=== PATIENT | female | born 1930 | race Caucasian/White ===

== ENCOUNTER 2017-11-15 10:19 | Inpatient (IN) | payer OTHER ==
[2017-11-15 11:33] LABS: Absolute Lymphocytes (CBC) 1.4 K/uL (0.7-4.9); Absolute Monocytes 0.7 K/uL (0.1-1.3); Absolute Neutrophil 7.7 K/uL (1.8-8.0); Basophils % 0.4 % (0-1.3); Eosinophils % 0.8 % (0-4.4); Hematocrit 38.3 % (36.0-45.0); MCH 30.7 pg (27.0-35.0); MPV 7.8 fL (7.6-11.3); Monocytes % 6.9 % (3.3-12.3); RBC Red Blood Cell Count 4.21 M/uL (3.86-4.86)
[2017-11-15 11:45] LABS: Potassium 4.2 mEq/L (3.6-5.0)
[2017-11-15 11:51] LABS: Albumin 4.2 g/dL (3.2-5.5); Bilirubin Direct 0.6 mg/dL (0-0.2); Protein, Total 6.7 g/dL (6.0-8.3)
[2017-11-15 11:54] LABS: CKMB Creatine Kinase MB 1.7 ng/ml (0.3-4.0)
--- NOTE | 2017-11-15 11:57 | RAD REPORT ---
EXAM DESCRIPTION: RAD - Chest Single View - 11/15/2017 10:53 am CLINICAL HISTORY: Chest pain. COMPARISON: 11/25/2016, 01/07/2013 FINDINGS: Portable technique limits examination quality. Mild emphysematous changes are present. Calcified nodules inferiorly remain unchanged. The heart is n ormal in size. No displaced fractures.Diffuse osteopenia. IMPRESSION: No acute intrathoracic process suspected.
--- NOTE | 2017-11-15 11:58 | RAD REPORT ---
EXAM DESCRIPTION: US - Abdomen Exam Limited - 11/15/2017 11:44 am CLINICAL HISTORY: Abdominal pain. COMPARISON: None. FINDINGS: The gallbladder demonstrates multiple small shadowing gallstones. No pericholecystic fluid or gallbladder wall thickening. The common bile duct is normal measuring 5-6 mm. The liver demonstrates no findings of intrahepatic biliary dilatation. IMPRESSION: Cholelithiasis.
--- NOTE | 2017-11-15 14:21 | RAD REPORT ---
EXAM DESCRIPTION: CTAbdomen Pelvis W Contrast - 11/15/2017 2:04 pm CLINICAL HISTORY: Abdominal pain. COMPARISON: 11/15/2017 sonography TECHNIQUE: Biphasic CT imaging of the abdomen and pelvis was performed with 100 ml non-ionic IV cont rast. All CT scans are performed using dose optimization technique as appropriate and may include automated exposure control or mA/KV adjustment according to patient size. FINDINGS: Linear atelectasis is present in the lung bases.Multiple gallstones are present of gallbla dder with moderate pericholecystic fluid seen. The liver demonstrates no focal mass or biliary dilatation. Mild pancreatic atrophy seen. The spleen, adrenal glands and kidneys within normal limits. Aortic atherosclerosis is present. No bowel obstruction, free air, free fluid or abscess. Scattered sigmoid diverticulosis is present wi thout diverticulitis. The appendix is normal. No evidence of significant lymphadenopathy. Small amount of air seen in urinary bladder. Nonspecific subcutaneous lesion is seen in the right pel sabina subcutaneous fat measuring 13 mm. IMPRESSION: Cholelithiasis with moderate pericholecystic fluid could indicate acute cholecystitis. C orrelation with clinical Godinez's sign is advised. A small amount of air in the urinary bladder suggests cystitis.
--- NOTE | 2017-11-15 14:57 | EKG ---
Test Date: 2017-11-15 Test Time: 10:35:29 Risk Modeler: MEASUREMENT RESULTS: Intervals: Rate: 60 WY: 210 QRSD: 84 QT: 438 QTc: 438 [place]: P: 82 WY: 210 QRS: 46 T: 86 INTERPRETIVE STATEMENTS: Sinus rhythm with 1st degree AV block Septal infarct, age undetermined Abnormal ECG Compared to ECG 11/25/2016 13:00:47 First degree AV block now present Myocardial infarct finding now present Electronically Signed On 11-15-17 14:56:42 CDT by Heber Ortiz
[2017-11-15] MEDS ORDERED: NA CHLORIDE 0.9% 1,000 ML ONE (15:05)
--- NOTE | 2017-11-15 15:21 | EDPHYS ---
Physician Documentation [facility] Name: Josselyn Pereira Age: 87 yrs Sex: Female : 1930 Arrival Date: 11/15/2017 Time: 10:23 Bed 3 Private MD: ED Physician Anand Joshua HPI: 11/15 15:12 This 87 yrs old Female presents to ER via EMS with complaints of Epigastric pm1 pain. 15:12 The patient presents with abdominal pain in the epigastric area. Onset: The pm1 symptoms/episode began/occurred at 07:00. The symptoms radiate to Associated signs and symptoms: Pertinent negatives: nausea, vomiting, and diarrhea, dysuria, fever, shortness of breath, soft stool, not watery. The symptoms are described as achy. Modifying factors: The symptoms are alleviated by nothing, the symptoms are aggravated by touching the area. Severity of pain: in the emergency department the pain is a 5 / 10. The patient has not experienced similar symptoms in the past. The patient has not recently seen a physician, the patient's primary care provider is Dr. Disla. Historical: - Allergies: 10:29 No Known Allergies; ph - Home Meds: 17:02 carvedilol 25 mg Oral tab 1 tab 2 times per day [Active]; simvastatin 80 mg Oral tab 80 ph mg daily [Active]; Synthroid 50 mcg oral tab once daily [Active]; lisinopril 40 mg Oral tab 0.5 tab twice daily [Active]; glipizide 5 mg Oral tab 0.5 tab once daily [Active]; aspirin 81 mg Oral TbEC 1 tab once daily [Active]; - PMHx: 10:29 Diabetes - NIDDM; Hypertension; Hypothyroidism; CVA; ph - Immunization history:: Adult Immunizations unknown. - Social history:: Smoking status: Patient/guardian denies using tobacco. ROS: 15:12 Constitutional: Negative for fever, chills, and weight loss, Eyes: Negative for injury, pm1 pain, redness, and discharge, ENT: Negative for injury, pain, and discharge, Neck: Negative for injury, pain, and swelling, Cardiovascular: Negative for chest pain, palpitations, and edema, Respiratory: Negative for shortness of breath, cough, wheezing, and pleuritic chest pain. 15:12 Back: Negative for injury and pain, : Negative for injury, bleeding, discharge, and swelling, MS/Extremity: Negative for injury and deformity, Skin: Negative for injury, rash, and discoloration, Neuro: Negative for headache, weakness, numbness, tingling, and seizure. 15:12 Abdomen/GI: Positive for abdominal pain, of the epigastric area and right upper quadrant, Negative for nausea, vomiting, and diarrhea. Exam: 15:12 Constitutional: This is a well developed, well nourished patient who is awake, alert, pm1 and in no acute distress. Head/Face: Normocephalic, atraumatic. Eyes: Pupils equal round and reactive to light, extra-ocular motions intact. Lids and lashes normal. Conjunctiva and sclera are non-icteric and not injected. Cornea within normal limits. Periorbital areas with no swelling, redness, or edema. ENT: Nares patent. No nasal discharge, no septal abnormalities noted. Tympanic membranes are normal and external auditory canals are clear. Oropharynx with no redness, swelling, or masses, exudates, or evidence of obstruction, uvula midline. Mucous membranes moist. Neck: Trachea midline, no thyromegaly or masses palpated, and no cervical lymphadenopathy. Supple, full range of motion without nuchal rigidity, or vertebral point tenderness. No Meningismus. Chest/axilla: Normal chest wall appearance and motion. Nontender with no deformity. No lesions are appreciated. Cardiovascular: Regular rate and rhythm with a normal S1 and S2. No gallops, murmurs, or rubs. Normal PMI, no JVD. No pulse deficits. Respiratory: Lungs have equal breath sounds bilaterally, clear to auscultation and percussion. No rales, rhonchi or wheezes noted. No increased work of breathing, no retractions or nasal flaring. 15:12 Back: No spinal tenderness. No costovertebral tenderness. Full range of motion. Skin: Warm, dry with normal turgor. Normal color with no rashes, no lesions, and no evidence of cellulitis. MS/ Extremity: Pulses equal, no cyanosis. Neurovascular intact. Full, normal range of motion. 15:12 Abdomen/GI: Inspection: abdomen appears normal, Bowel sounds: normal, Palpation: soft, moderate abdominal tenderness, in the right upper quadrant, mass, is not appreciated, rebound tenderness, is not appreciated, voluntary guarding, is elicited in the right upper quadrant. 15:12 Neuro: Orientation: is normal, Motor: is normal, moves all fours, Sensation: is normal, no obvious gross deficits. Vital Signs: 10:27 BP 190 / 52; Pulse 73; Resp 18; Temp 97.4(TE); Pulse Ox 95% on R/A; Weight 56.7 kg; ph Height 5 ft. 8 in. (172.72 cm); Pain 3/10; 11:30 BP 179 / 48; Pulse 67; Resp 18; Pulse Ox 97% on R/A; Pain 0/10; ph 12:45 BP 172 / 49; Pulse 81; Resp 18; Pulse Ox 96% on R/A; Pain 0/10; ph 14:00 BP 174 / 50; Pulse 81; Resp 16; Pulse Ox 97% on R/A; ph 15:17 BP 169 / 52; Pulse 78; Resp 18; Pulse Ox 98% on R/A; Pain 0/10; ph 10:27 Body Mass Index 19.01 (56.70 kg, 172.72 cm) ph MDM: 10:27 Patient medically screened. pm1 15:06 Data reviewed: vital signs. Data interpreted: Pulse oximetry: on room air is 96 %. pm1 Interpretation: normal. 15:10 Counseling: I had a detailed discussion with the patient and/or guardian regarding: the pm1 historical points, exam findings, and any diagnostic results supporting the discharge/admit diagnosis, lab results, radiology results. 15:26 Physician consultation: Jean Melgoza MD was called at 15:25, was contacted at 15:25, pm1 regarding consult, patient's condition, and will see patient Draw amylase level. 16:48 ED course: Consulted with Dr. Caldera regarding possible cholecystitis, Dr. Melgoza has rn been notified regarding need for ERCP given lipase of 1999, abx given, admitted to Dr. Gardiner.. 11/15 10:33 Order name: Basic Metabolic Panel; Complete Time: 13:18 pm1 11/15 10:33 Order name: BNP; Complete Time: 12:10 pm1 11/15 10:33 Order name: CBC with Diff; Complete Time: 11:46 pm1 11/15 10:33 Order name: Ckmb; Complete Time: 13:18 pm1 11/15 10:33 Order name: CPK; Complete Time: 13:18 pm1 11/15 10:33 Order name: LFT's; Complete Time: 13:18 pm11/15 10:33 Order name: Magnesium; Complete Time: 13:18 pm11/15 10:33 Order name: PT-INR; Complete Time: 12:10 pm1 11/15 10:33 Order name: Ptt, Activated; Complete Time: 12:10 pm1 11/15 10:33 Order name: Troponin (emerg Dept Use Only); Complete Time: 12:10 pm11/15 10:33 Order name: Lipase; Complete Time: 13:18 pm1 11/15 15:27 Order name: Amylase, Serum pm1 11/15 15:46 Order name: Lipase EDMS 11/15 15:46 Order name: Amylase Level EDMS 11/15 10:33 Order name: XRAY Chest (1 view); Complete Time: 12:10 pm11/15 10:44 Order name: US Abdomen Limited; Complete Time: 12:10 pm11/15 15:46 Order name: Amylase Level EDMS 11/15 15:46 Order name: Amylase Level EDMS 11/15 15:46 Order name: CBC with Automated Diff EDMS 11/15 15:46 Order name: CBC with Automated Diff EDMS 11/15 15:46 Order name: CBC with Automated Diff EDMS 11/15 15:46 Order name: CBC with Automated Diff EDMS 11/15 15:46 Order name: Comprehensive Metabolic Panel EDMS 11/15 15:46 Order name: Comprehensive Metabolic Panel EDMS 11/15 15:46 Order name: Comprehensive Metabolic Panel EDMS 11/15 15:46 Order name: Lipase EDMS 11/15 15:46 Order name: Lipase EDMS 11/15 16:39 Order name: Urine Microscopic Only ss 11/15 16:43 Order name: Urine Dipstick--Ancillary (enter results) bd 11/15 17:04 Order name: Urine Dipstick-Ancillary EDMS 11/15 10:33 Order name: EKG; Complete Time: 10:33 pm1 11/15 10:33 Order name: Cardiac monitoring; Complete Time: 11:34 pm1 11/15 10:33 Order name: EKG - Nurse/Tech; Complete Time: 11:34 pm1 11/15 10:33 Order name: IV Saline Lock; Complete Time: 11:34 pm1 11/15 10:33 Order name: Labs collected and sent; Complete Time: 11:35 pm1 11/15 10:33 Order name: O2 Per Protocol; Complete Time: 11:35 pm1 11/15 10:33 Order name: O2 Sat Monitoring; Complete Time: 11:35 pm1 11/15 13:21 Order name: CT Abd/Pelvis - W/Contrast; Complete Time: 14:23 pm1 11/15 13:49 Order name: NPO; Complete Time: 14:13 pm1 11/15 15:46 Order name: CONS Physician Consult EDCO 11/15 15:46 Order name: NPO EDCO 11/15 15:46 Order name: Physical Therapy Consult EDCO Administered Medications: 15:07 Drug: NS 0.9% 1000 ml Route: IV; Rate: 100 ml/hr; Site: left antecubital; ph 16:45 Drug: Rocephin 1 grams Route: IV; Rate: calculated rate; Site: left antecubital; ph 16:58 Drug: Flagyl 500 mg Volume: 100 ml; Route: IVPB; Rate: 200 ml/hr; Infused Over: 30 ph mins; Site: left antecubital; Disposition: 11/15/17 15:20 Hospitalization ordered by Matthew Gardiner for Inpatient Admission. Preliminary diagnosis are Cholelithiasis, Acute pancreatitis. - Bed requested for Telemetry/MedSurg (Inpatient). - Status is Inpatient Admission. ph - Condition is Stable. - Problem is new. - Symptoms have improved. UTI on Admission? No Signatures: Dispatcher [employer] [facility] Candy Gomez RN RN dw Nieto, Roman, MD MD rn Hall, Patricia, RN RN ph Marinas, Patrick, RUTHIE OPTIMIZATION ENGINEER pm1
--- NOTE | 2017-11-15 15:21 | ER ---
Nurse's Notes [facility] Name: Josselyn Pereira Age: 87 yrs Sex: Female : 1930 Arrival Date: 11/15/2017 Time: 10:23 Bed 3 Private MD: Diagnosis: Cholelithiasis;Acute pancreatitis Presentation: 11/15 10:23 Presenting complaint: EMS states: C/o sudden onset chest pain that radiates to back, ph began at 0700, also reports N/V/D soon after pain began, 324 aspirin administered, 12 lead shows NSR. Transition of care: patient was not received from another setting of care. Onset of symptoms was November 15, 2017. Care prior to arrival: Medication(s) given: ASA, 325 mg. 10:23 Method Of Arrival: EMS: [facility] ph 10:23 Acuity: SHAGGY 3 ph Historical: - Allergies: : No Known Allergies; ph - Home Meds: 17:02 carvedilol 25 mg Oral tab 1 tab 2 times per day [Active]; simvastatin 80 mg Oral tab 80 ph mg daily [Active]; Synthroid 50 mcg oral tab once daily [Active]; lisinopril 40 mg Oral tab 0.5 tab twice daily [Active]; glipizide 5 mg Oral tab 0.5 tab once daily [Active]; aspirin 81 mg Oral TbEC 1 tab once daily [Active]; - PMHx: 10:29 Diabetes - NIDDM; Hypertension; Hypothyroidism; CVA; ph - Immunization history:: Adult Immunizations unknown. - Social history:: Smoking status: Patient/guardian denies using tobacco. Screenin:29 Abuse screen: Denies threats or abuse. Denies injuries from another. Nutritional ph screening: No deficits noted. Tuberculosis screening: No symptoms or risk factors identified. Fall Risk No fall in past 12 months (0 pts). Secondary diagnosis (15 points) CVA, IV access (20 points). Ambulatory Aid- None/Bed Rest/Nurse Assist (0 pts). Gait- Weak (10 pts.). Mental Status- Oriented to own ability (0 pts). Total Ureña Fall Scale indicates High Risk Score (45 or more points). Fall prevention measures have been instituted. Side Rails Up X 2 Placed Close to Nursing Station Frequent Obs/Assessments Occuring As available patient and family educated on Fall Prevention Program and Strategies. Assessment: 10:30 General: Appears in no apparent distress. uncomfortable, slender, well groomed, ph Behavior is calm, cooperative, drowsy, quiet, Denies fever. Pain: Complains of pain in chest Pain radiates to back Pain currently is 3 out of 10 on a pain scale. Quality of pain is described as sharp, Pain began suddenly. Neuro: Level of Consciousness is awake, obeys commands, lethargic, Oriented to person, place, time, situation. Cardiovascular: Reports chest pain, nausea, vomiting, Denies lightheadedness, palpitations, shortness of breath, Capillary refill < 3 seconds Patient's skin is warm and dry. Rhythm is regular. Respiratory: Airway is patent Respiratory effort is even, unlabored, Respiratory pattern is regular, symmetrical. GI: Reports diarrhea, nausea, vomiting. Derm: Skin is intact, is fragile, Skin is pink, warm \T\ dry. Musculoskeletal: Circulation, motion, and sensation intact. Range of motion: intact in all extremities. 11:30 Reassessment: Patient appears in no apparent distress at this time. Patient and/or ph family updated on plan of care and expected duration. Pain level reassessed. Patient is alert, oriented x 3, equal unlabored respirations, skin warm/dry/pink. Pt reports that pain and nausea have improved, tech at bedside for US Patient denies pain at this time. Patient states symptoms have improved. 13:14 Reassessment: Patient appears in no apparent distress at this time. Patient and/or ph family updated on plan of care and expected duration. Pain level reassessed. Patient is alert, oriented x 3, equal unlabored respirations, skin warm/dry/pink. Pt resting quietly w/ eyes closed and respirations even and unlabored, awakens easily, denies pain or nausea at this time, daughter at bedside, VSS, will continue to monitor. 14:00 Reassessment: Patient appears in no apparent distress at this time. No changes from previously documented assessment. Patient and/or family updated on plan of care and expected duration. Pain level reassessed. Patient is alert, oriented x 3, equal unlabored respirations, skin warm/dry/pink. 15:05 Reassessment: Patient appears in no apparent distress at this time. Patient and/or ph family updated on plan of care and expected duration. Pain level reassessed. Patient is alert, oriented x 3, equal unlabored respirations, skin warm/dry/pink. ERP at bedside to speak w/ pt and family about being admitted to the hospital, pt denies pain or nausea at this time, VSS, awaiting room assignment Patient denies pain at this time. 16:00 Reassessment: Patient appears in no apparent distress at this time. Patient and/or ph family updated on plan of care and expected duration. Pain level reassessed. Patient is alert, oriented x 3, equal unlabored respirations, skin warm/dry/pink. Patient denies pain at this time. 17:00 Reassessment: Patient appears in no apparent distress at this time. Patient and/or ph family updated on plan of care and expected duration. Pain level reassessed. Patient is alert, oriented x 3, equal unlabored respirations, skin warm/dry/pink. Pt resting quietly, denies pain or nausea at this time. Vital Signs: 10:27 BP 190 / 52; Pulse 73; Resp 18; Temp 97.4(TE); Pulse Ox 95% on R/A; Weight 56.7 kg; ph Height 5 ft. 8 in. (172.72 cm); Pain 3/10; 11:30 BP 179 / 48; Pulse 67; Resp 18; Pulse Ox 97% on R/A; Pain 0/10; ph 12:45 BP 172 / 49; Pulse 81; Resp 18; Pulse Ox 96% on R/A; Pain 0/10; ph 14:00 BP 174 / 50; Pulse 81; Resp 16; Pulse Ox 97% on R/A; ph 15:17 BP 169 / 52; Pulse 78; Resp 18; Pulse Ox 98% on R/A; Pain 0/10; ph 16:40 BP 167 / 58; Pulse 72; Resp 18; Temp 97.9; Pulse Ox 99% on R/A; ph 10:27 Body Mass Index 19.01 (56.70 kg, 172.72 cm) ph ED Course: 10:23 Patient arrived in ED. ph 10:27 Triage completed. ph 10:27 Abena Mayes NP is PHCP. pm1 10:27 Anand Joshua MD is Attending Physician. pm1 10:29 Arm band placed on. ph 10:30 Patient has correct armband on for positive identification. Placed in gown. Bed in low ph position. Call light in reach. Side rails up X 1. cardiac monitor technician on. Pulse ox on. NIBP on. Warm blanket given. 10:33 Patient maintains SpO2 saturation greater than 95% on room air. ph 10:52 XRAY Chest (1 view) In Process Unspecified. EDMS 11:10 Inserted saline lock: 22 gauge in left antecubital area, using aseptic technique. Blood ph collected. 11:28 Kami Thomas RN is Primary Nurse. ph 11:32 No provider procedures requiring assistance completed. ph 11:39 Ultrasound completed. Patient tolerated poorly. Note: pt very nauseous/ vomiting during sg3 . abena notified . 11:44 US Abdomen Limited In Process Unspecified. EDMS 14:04 CT Abd/Pelvis - W/Contrast In Process Unspecified. EDMS 15:18 Matthew Gardiner MD is Hospitalizing Provider. pm1 17:34 Patient admitted, IV remains in place. ph Administered Medications: 15:07 Drug: NS 0.9% 1000 ml Route: IV; Rate: 100 ml/hr; Site: left antecubital; ph 17:30 Follow up: Response: No adverse reaction; IV Status: Infusion continued upon admission ph 16:45 Drug: Rocephin 1 grams Route: IV; Rate: calculated rate; Site: left antecubital; ph 16:58 Drug: Flagyl 500 mg Volume: 100 ml; Route: IVPB; Rate: 200 ml/hr; Infused Over: 30 ph mins; Site: left antecubital; 18:34 Not Given (Patient Refused): Zofran 4 mg IVP once; over 2 minutes ph 18:35 Not Given (Patient Refused): morphine 4 mg IVP once ph Outcome: 15:20 Decision to Hospitalize by Provider. pm1 17:34 Patient left the ED. ph 17:34 Admitted to Tele accompanied by tech, family with patient, via wheelchair, room 408, ph with chart. 17:34 Condition: stable 17:34 Instructed on the need for admit. Signatures: Dispatcher [employer] EDMS Kami Thomas RN RN ph Abena Mayes, PIT SHOVELER PIT SHOVELER pm1 Sue Ty sg3 Corrections: (The following items were deleted from the chart) 11:42 11:39 Ultrasound completed. Patient tolerated poorly. sg3 sg3
[2017-11-15] MEDS ORDERED: ONDANSETRON 4 MG/2 ML VIAL IV PRN (15:40)
[2017-11-15] MEDS ORDERED: SODIUM CHLORIDE 0.9% 10ML INJ IV PRN (15:40)
[2017-11-15] MEDS ORDERED: ACETAMINOPHEN 650MG/RECT SUPP PR PRN (15:40)
[2017-11-15] MEDS ORDERED: MORPHINE 4 MG/ML SYR IV PRN (15:40)
[2017-11-15] MEDS ORDERED: GLUCAGON 1 MG/VIAL IM PRN (15:49)
[2017-11-15] MEDS ORDERED: D50W 25 GM/50 ML SYRINGE IV PRN (15:49)
[2017-11-15] MEDS ORDERED: INSULIN -REGULAR HUMAN 50 UNIT/0.5 ML ML SQ SCH (16:30)
[2017-11-15] MEDS ORDERED: METRONIDAZOLE 500mg IVPB 500 MG/100 ML BAG IV ONE (17:02)
[2017-11-15] MEDS ORDERED: CEFTRIAXONE/SWI 1gm 1 GM/10 ML SYR ONE (17:02)
[2017-11-15 17:03] LABS: Urine Blood NEGATIVE (NEG); Urine Glucose NEGATIVE (NEG); Urine Protein NEGATIVE (NEG); Urine Specific Gravity 1.015 (1.005-1.030)
[2017-11-15 18:06] LABS: Urine Bacteria >50 /HPF (<20); Urine Culture Reflex Order REFLEXED; Urine Mucus NS /HPF (NONE SEEN); Urine RBC <5 /HPF (NONE SEEN)
[2017-11-15] MEDS: D5 0.45 NS 1,000 ML IV SCH (18:31)
[2017-11-15] MEDS ORDERED: HYDRALAZINE HCL 20 MG/ML VIAL IV PRN (19:45)
[2017-11-15] MEDS: CIPROFLOXACIN 400mg IV 400 MG/200 ML BAG IV SCH (20:44)
[2017-11-16] MEDS: D5 0.45 NS 1,000 ML IV SCH ×5 (00:37→22:00)
[2017-11-16] MEDS: METRONIDAZOLE 500mg IVPB 500 MG/100 ML BAG IV SCH ×3 (01:05→17:03)
--- NOTE | 2017-11-16 02:42 | HP ---
Date of Admission: 11/15/2017 Code Status: DNR. Consultants: Dr. Melgoza and Dr. Caldera with GI and General Surgery respectively. Chief Complaint: Abdominal pain. History Of Present Illness: The patient is an 87-year-old female with past medical history of diabetes, hypertension, hypothyroidism, history of CVA with left-sided weakness, hyperlipidemia, who was in her usual state of health until day of admission when the patient had sudden onset of nausea, vomiting, abdominal pain, which was in the right upper quadrant. Denies any fever or chills. No constipation or diarrhea. The patient's symptoms are constant, moderate, progressively worsening. Denies any alleviating or aggravating factors. No association with food. Apparently, the patient came into the ER for further evaluation of her pain. Upon arrival, her vital signs showed elevated blood pressure. Her workup revealed elevated lipase level. WBC count was normal. The patient's imaging finding showed cholelithiasis and cholecystitis. The patient was therefore referred for admission. The patient was given normal saline fluid bolus x1. When seen in the ER, the patient was awake, alert, oriented x3, in some mild distress. Past Medical History: Diabetes, hypertension, hypothyroidism, history of CVA, hyperlipidemia. 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 She has impinging on the nerve. Allergies: NO KNOWN DRUG ALLERGIES. Medications: Reviewed. Social History: The patient denies any tobacco use, alcohol use, or illicit drug use. The patient lives with her daughter, is . Uses a walker for ambulation. Family History: Father of an IA. Mom had congestive heart failure. Sister also had congestive heart failure, cancer runs in the family. Review of Systems: An 11-point system reviewed, negative except as per HPI. Physical Examination: Vital Signs: Temperature 97.4, heart rate 73, blood pressure 190/52, respirations 18, O2 saturation 95% on room air. General: Awake, alert, oriented x3, in some mild distress. Elderly female, ill -appearing. HEENT: Normocephalic, atraumatic. PERRLA. EOMI. Dry mucous membranes. Oropharynx is clear. Poor dentition. Conjunctiva is anicteric. Neck: Supple. No JVD. Trachea midline. CV: S1 and S2. No murmurs. Regular rate and rhythm. Peripheral pulses are present bilaterally. RESPIRATORY: Clear to auscultation bilaterally. No wheezing. No stridor. No use of accessory muscles. Gastrointestinal: Abdomen is soft. Mild tenderness to palpation in the right upper quadrant. No rebound or guarding. No palpable masses. No hepatomegaly. Extremities: No clubbing, cyanosis, or edema. No calf tenderness. Neuro: Cranial nerves 2 through 12 intact grossly. Left sided weakness. Speech is normal. Skin: Normal skin turgor. No rashes. Psych: Mood is okay. Affect is flat. Insight and judgment are good. Laboratory Data: Sodium 137, potassium 4.2, chloride 104, CO2 27, BUN 31, creatinine 1.3, glucose 199, calcium 10, magnesium 2, total bilirubin 2, direct bilirubin 0.6, AST 43, ALT 24, alkaline phosphatase 48. CK 43, troponin less than 0.03. BNP 145, lipase 2080, amylase pending. INR 1. WBC 9.9, H and H 12.9 and 38.3, platelets 132, neutrophils 77%. Imaging: CT scan of the abdomen shows cholelithiasis with moderate pericholecystic fluid could indicate acute cholecystitis. Small amount of air in the urinary bladder suggests cystitis. Ultrasound of the abdomen shows cholelithiasis. No intrahepatic biliary dilatation. Chest x-ray shows no acute intrathoracic process, suspected personally reviewed. EKG shows sinus rhythm, first-degree AV block, rate of 60. Assessment: An 87-year-old female with: 1. Acute cholecystitis. We will start on IV antibiotics and IV fluids. Keep n.p.o. GI and Surgery has been consulted secondary to cholelithiasis. 2. Acute kidney injury. Creatinine is elevated 1.3. We will start on IV fluids and monitor creatinine. 3. Elevated lipase level. No signs of pancreatitis on CT scan. We will check amylase level correlate. Keep n.p.o. for now. We will check triglyceride levels. No ductal dilatation or stones on imaging studies. 4. Essential hypertension, stable. We will resume home medications as appropriate. 5. Diabetes mellitus type 2 with hyperglycemia. We will start on sliding scale insulin. 6. Hypothyroidism. 7. Hyperlipidemia. 8. History of cerebrovascular accident with left-sided weakness. GI, DVT prophylaxis with PPI and SCDs. No chemical anticoagulation and anticipation of possible procedure. No MPOA or living will Plan: Admit the patient to Med-Surg, place as inpatient. EUSEBIO Voice ID: [id number] MTDD
[2017-11-16] MEDS: INSULIN -REGULAR HUMAN 50 UNIT/0.5 ML ML SQ SCH ×5 (05:32→20:07)
[2017-11-16 06:28] LABS: Absolute Lymphocytes (CBC) 1.9 K/uL (0.7-4.9); Absolute Monocytes 0.7 K/uL (0.1-1.3); Basophils % 0.4 % (0-1.3); Eosinophils % 0.5 % (0-4.4); Hematocrit 35.5 % (36.0-45.0); Lymphocytes % 25.1 % (15.3-44.8); MCH 30.8 pg (27.0-35.0); MCV 89.9 fL (80-100); MPV 8.2 fL (7.6-11.3); Monocytes % 9.2 % (3.3-12.3); RBC Red Blood Cell Count 3.95 M/uL (3.86-4.86)
[2017-11-16 07:02] LABS: Albumin 3.3 g/dL (3.2-5.5); Bilirubin Total 1.2 mg/dL (0.3-1.2); Potassium 3.7 mEq/L (3.6-5.0); Protein, Total 5.2 g/dL (6.0-8.3)
[2017-11-16] MEDS: CIPROFLOXACIN 400mg IV 400 MG/200 ML BAG IV SCH ×2 (08:26→20:53)
[2017-11-16] MEDS: PANTOPRAZOLE 40 MG INJ IVP SCH (08:26)
[2017-11-16] MEDS: CARVEDILOL 25 MG TAB PO SCH ×2 (11:00→20:53)
[2017-11-16] MEDS: LISINOPRIL 20 MG TAB PO SCH (12:10)
[2017-11-16] MEDS: ASPIRIN EC 81 MG TAB PO SCH (12:11)
[2017-11-16] MEDS: hydroCHLOROthiazide 12.5 MG CAP PO SCH (12:11)
[2017-11-16] MEDS: ENOXAPARIN 30 MG/0.3 ML SQ SCH (12:12)
--- NOTE | 2017-11-16 14:33 | CON ---
Date of Consultation: 11/15/2017 Reason: Cholelithiasis and pancreatitis. History Of Present Illness: The patient is an 87-year-old female with multiple medical problems, who presented with acute onset of epigastric pain going into the back pain. No sore throat, runny nose, cough, headaches, or dizziness. No fever or chills and the patient is very stoic. She denies any s ignificant nausea or vomiting. No postprandial pain and states that she not had any symptoms like th is in the past. No blood in her stool. No dysuria or hematuria. Review of Systems: Otherwise unremarkable. Past Medical History: Diabetes, hypertension, hypothyroidism, history of stroke and hyperlipidemia. Past Surgical History: Exploratory laparotomy and small-bowel resection due to benign tumors, left o ophorectomy, back surgery. Allergies: NO ALLERGIES. Social History: She does not smoke or drink. Family History: Noncontributory. Physical Examination: Vital Signs: Stable. She is afebrile. General: She is awake, alert, and oriented x3. Head and Neck: Cranial nerves 2 through 12 are grossly within normal limits. No neck masses. No JV D. Throat clear. Neck is supple. Chest: Clear. Heart: S1, S2. Abdomen: Soft, nondistended. Minimal epigastric tenderness. No rebound, rigidity, or guarding. Extremities: Adequately perfused. Nontender. Neuro: Nonfocal. Laboratory Data: White count is normal. There is no left shift today. INR is normal. Electrolytes reviewed, AST is slightly elevated at 53, amylase was 657 yesterday and is 168 today. Lipase was 16 20 yesterday, 136 today. Triglycerides are normal at 39. Abdominal and pelvis CT showed cholelithia sis with pericholecystic fluid correlation with clinical Godinez's sign is advised. Small amount of a ir in the urinary bladder suggests cystitis. Ultrasound reviewed, gallbladder demonstrates multiple small shadowing gallstones, no pericholecystic fluid or gallbladder wall thickening. Common bile buzz t is normal at 5 to 6 mm. Impression: Cholelithiasis. Assessment: Cholelithiasis, pancreatitis, and possible cystitis. Recommendation at this time, the p atient is clinically very stable. The etiology of the pancreatitis could be a small stone that passe d through, however, clinically she looks very good at this time. There is no evidence of any acute c holecystitis on the ultrasound, which is more sensitive in the CAT scan. Her laboratory data that pina s been improved markedly within just 24 hours. Recommendation: Would be to treat her cystitis and pancreatitis medically. She is on antibiotics an d we will start her on clear liquids. If she tolerates that, I recommend, that we discharge her, she can follow up with me as an outpatient. Should she need surgical intervention. I would like to champ t at least a couple of weeks on treating her pancreatitis prior to any consideration for any interven tion and it does not appear the patient needs ERCP at this time. However we will follow her lab work and clinical exam and make further recommendations as needed. BRIANDA/FIONA Voice ID: [id number] Report ID: [id number]
--- NOTE | 2017-11-16 15:12 | PN ---
Date of Progress Note: 11/16/2017 Subjective: The patient is seen and examined. Chart reviewed and case discussed with RN and Dr. Karthikeyan pina. The patient states her pain is better, having some nausea, but no vomiting. Review of Systems: Negative except as above. Medications: Reviewed. Physical Examination: Vital Signs: Temperature 98.4, heart rate 85, blood pressure 139/59, respirations 16, O2 95% on room air. General: Awake, alert, oriented x3, in some mild distress, somewhat ill-appearing female, elderly. CV: S1, S2. No murmurs. Peripheral pulses present. Regular rate and rhythm. Respiratory: Clear to auscultation bilaterally. No wheezing. Gastrointestinal: Soft abdomen, mild tenderness to palpation in the epigastric region. No rebound o r guarding. No palpable masses. Extremities: No clubbing, cyanosis, or edema. Neurologic: Nonfocal. Laboratory Data: Sodium 137, potassium 3.7, chloride 106, CO2 25, BUN 26, creatinine 1.25, glucose 1 82, calcium 9.1, total bilirubin 1.2, AST 53, ALT 35, alkaline phosphatase 43, albumin 3.3, triglycer ides 39, amylase 168, and lipase 136. WBC 7.7, H and H 12.2 and 35.5, platelets 136. Urine culture is pending. Assessment And Plan: An 87-year-old female with: 1.Acute cholecystitis. Continue IV antibiotics and IV fluids. We will start on clear liquid diets. Appreciate Dr. Caldera's input. He does not feel the patient has any surgical indication at this poi nt. Recommends outpatient followup for elective cholecystectomy. 2.Pancreatitis. Amylase and lipase have improved, likely secondary to ductal stone that most likely has already passed. Amylase and lipase level have trended down significantly. Pain is improved. W e will start on clear liquids. Imaging studies did not show any ductal dilatation. GI on the case. 3.Acute kidney injury. Creatinine has improved, and we will continue with IV fluids, monitor. 4.Essential hypertension. Resume home medications. 5.Diabetes mellitus, type 2 with hyperglycemia. Continue sliding scale. 6.Hypothyroidism, Synthroid. 7.Hyperlipidemia, for now due to elevated LFTs. 8.History of cerebrovascular accident with left-sided weakness. 9.Gastrointestinal and deep venous thrombosis prophylaxis with PPI, and we will start Lovenox as the re is no surgical intervention planned. /FIONA Voice ID: [id number] Report ID: [id number]
--- NOTE | 2017-11-16 19:41 | CON ---
Date of Consultation: 11/16/2017 Reason For Consultation: Abdominal pain with nausea, vomiting, fevers, chills, abnormal CT scan reve aling probable cholecystitis, cholelithiasis, and possible gallstone pancreatitis. History Of Present Illness: This patient is an 87-year-old white female with history of diabetes, hy pertension, stroke in 2010, hypothyroidism, hyperlipidemia. Patient admitted to the hospital due to acute onset of midepigastric pain radiating to the mid back, 5/10 maximum, now down to 0. She had na usea, vomiting, fevers, chills, and sweats associated with this pain. The patient came to the hospit al and CT scan revealed cholelithiasis and pericholecystic fluid consistent with cholecystitis and po ssible urinary bladder cystitis. Ultrasound reveals multiple small gallstones in the gallbladder and normal common bile duct. The patient also noted to have elevated lipase on admission in the ER of a pproximately 2079 consistent with pancreatitis as well. In light of the cholelithiasis, it is probab ly gallstone pancreatitis. The patient denies any melena, hematochezia, hematemesis, coffee-grounds emesis, dysuria, polyuria, polydipsia, chest pain, shortness of breath, seizure, syncope, lower extre mity edema, paresthesias, muscle aches, joint aches, depression, anxiety, but she does have nausea, v omiting, fevers, chills, sweats and midepigastric pain radiating to her back. Physical Examination: Vital Signs: She is 5 feet 8 inches, 125 pounds, BMI of 19 kg/m2. Temperature 98.3 degrees Fahrenhe it, pulse 89, respirations 18, blood pressure 126/54, O2 saturation 96%. General: She is an elderly female, lying in bed, in no acute distress. HEENT: Normocephalic, atraumatic. Anicteric. Pupils equal, round, and reactive to light. Extraocu lar movements are intact. Oropharynx is clear. Neck: Supple. No masses. Respirations: Clear to auscultation bilaterally. Cardiac: Regular rate and rhythm. No gallops or rubs. Gastrointestinal: Positive bowel sounds. Soft, nondistended. Pain in the right upper quadrant. Po sitive Godinez sign. No hepatosplenomegaly. No peritoneal signs, but there was a positive Godinez sig n. Extremities: No clubbing, cyanosis, or edema. 2+ pulses. Neurologic: Alert and oriented x3. Grossly nonfocal. 5/5 motor strength. Sensation to light touch . Able to move all extremities well. Laboratory Data: The patient has a white count of 7.7 down from 9.9 yesterday, hemoglobin 12.2, adrienne tocrit 36, MCV of 89, platelet count 136, polys of 65% down from 78%, lymphocytes 25%, monocytes 9%. PT of 11.8, INR of 1.0, PTT 26.3. Sodium 133, potassium 4.2, chloride 104, bicarb 27, BUN 31, creat inine 1.3, glucose 99, calcium 10, magnesium 2.0, total bilirubin of 2.0, direct bilirubin 0.6, AST 4 3, ALT of 24, alkaline phosphatase 48, CK-MB of 1.7, troponin I of less than 0.03. B-type natriureti c peptide 145. Total protein 6.7, albumin 4.2. Lipase of 2080, amylase of 657, lipase decreased at 1620 late yesterday and today amylase is decreased to 160. Lipase is down to 136 today. Creatinine has improved from 1.3 down to 1.25. Urine shows greater than 50 bacteria, , negative nitri te and negative leukocyte esterase. Imaging: CT abdomen and pelvis reveals cholelithiasis with large pericholecystic fluid indicative of acute cholecystitis. A small amount of air in the urinary bladder suggests urinary cystitis. Ultra sound of the abdomen reveals gallbladder with multiple small shadowing stones. Common bile duct norm al at 5 to 6 mm. No pericholecystic fluid or gallbladder thickening. , CT was later in at 2 to 3:00 p.m., so approximately [address] which revealed some thickening of the gallbladder wall 2 hours after the ultrasound. Impression: 1.Cholelithiasis with cholecystitis with an ultrasound revealing multiple gallstones in gallbladder and sludge proximally with normal common bile duct. CT revealing once again normal common bile duct; however, multiple stones in the gallbladder and gallbladder wall thickening approximately 2 to 3 melvin rs after the ultrasound was done. The patient has midepigastric pain radiating to the back, 5/10, no t now with nausea, vomiting, fevers, chills, night sweats. 2.Probable gallstone pancreatitis with pain radiating to midepigastric to the back. It appears the common bile duct is normal. Liver numbers are largely unremarkable indicative that the patient proba lupis passed a gallstone if indeed it was in the common bile duct. Her last aspirin also was taken yes terday. 3.History of diabetes, hypertension, stroke in 2010, hypothyroidism, hyperlipidemia. Recommendations: 1.Continue IV fluids, IV antibiotics. 2.P.r.n. pain medicines and antiemetics. 3.Check MRCP. 4.Proceed with laparoscopic cholecystectomy as per Surgery. TARA/FIONA Voice ID: [id number] Report ID: [id number]
[2017-11-17] MEDS: METRONIDAZOLE 500mg IVPB 500 MG/100 ML BAG IV SCH ×2 (01:04→09:27)
[2017-11-17] MEDS: D5 0.45 NS 1,000 ML IV SCH ×2 (01:04→08:00)
[2017-11-17 04:20] LABS: Absolute Lymphocytes (CBC) 1.9 K/uL (0.7-4.9); Absolute Monocytes 0.5 K/uL (0.1-1.3); Absolute Neutrophil 2.5 K/uL (1.8-8.0); Basophils % 0.4 % (0-1.3); Eosinophils % 2.3 % (0-4.4); Hematocrit 30.8 % (36.0-45.0); Lymphocytes % 37.9 % (15.3-44.8); MCH 31.6 pg (27.0-35.0); MCV 90.1 fL (80-100); MPV 7.9 fL (7.6-11.3); RBC Red Blood Cell Count 3.42 M/uL (3.86-4.86)
[2017-11-17 05:06] LABS: ALT/SGPT 28 IU/L (10-60); AST/SGOT 40 IU/L (10-42); Albumin 3.1 g/dL (3.2-5.5); Alkaline Phosphatase 37 IU/L (42-121); Amylase Level 74 U/L (28-100); BUN Blood Urea Nitrogen 15 mg/dL (6-20); Bicarbonate 26 mEq/L (21-31); Bilirubin Direct < 0.1 mg/dL (0-0.2); Bilirubin Total 0.9 mg/dL (0.3-1.2); Glomerular Filtration Rate 46 mL/min (=/>90); Glucose Level 160 mg/dL (65-120); Lipase 33 U/L (22-51); Magnesium 1.5 mg/dL (1.8-2.5); Phosphorus 2.7 mg/dL (2.5-4.3); Potassium 3.3 mEq/L (3.6-5.0); Sodium Level 137 mEq/L (135-145)
[2017-11-17] MEDS ORDERED: LEVOTHYROXINE SOD 0.05 MG TABLET PO SCH (06:00)
[2017-11-17] MEDS: INSULIN -REGULAR HUMAN 50 UNIT/0.5 ML ML SQ SCH ×2 (07:30→11:30)
[2017-11-17] MEDS ORDERED: HOME MED 1 EA UNK (Lisinopril [Lisinopril] 40 MG) PO SCH (09:00)
[2017-11-17] MEDS ORDERED: HOME MED 1 EA UNK (Hydrochlorothiazide [Hydrochlorothiazide] 12.5 MG) PO SCH (09:00)
[2017-11-17] MEDS ORDERED: hydroCHLOROthiazide 12.5 MG CAP PO SCH (09:00)
[2017-11-17] MEDS: CIPROFLOXACIN 400mg IV 400 MG/200 ML BAG IV SCH (09:00)
[2017-11-17] MEDS: LISINOPRIL 20 MG TAB PO SCH (09:25)
[2017-11-17] MEDS: ASPIRIN EC 81 MG TAB PO SCH (09:25)
[2017-11-17] MEDS: PANTOPRAZOLE 40 MG INJ IVP SCH (09:25)
[2017-11-17] MEDS: hydroCHLOROthiazide 12.5 MG CAP PO SCH (09:27)
[2017-11-17] MEDS: ENOXAPARIN 30 MG/0.3 ML SQ SCH (09:27)
[2017-11-17] MEDS: CARVEDILOL 25 MG TAB PO SCH (09:27)
--- NOTE | 2017-11-17 11:24 | RAD REPORT ---
EXAM DESCRIPTION: MRI - Cholangiogram - 11/17/2017 10:50 am CLINICAL HISTORY: Cholelithiasis, possible cholecystitis and pancreatitis COMPARISON: CT abdomen November 15, ultrasound November 15 ; CT aorta gram November 2016 FINDINGS: No intrahepatic biliary tree dilatation identified. Common bile duct is 6 mm in maximum di ameter. No stricture, mass or intraluminal filling defect identifiable. Pancreatic duct is visualized . No dilatation, stricture or mass seen. There several clustered cysts in the head of the pancreas. T hese are 8 mm or less in size. These do not have mass effect on the biliary tree. These are in close proximity to the pancreatic duct. Small gallstones are identified. Wall of the gallbladder is mildly prominent on the MRCP study. Howev er, this is felt to be less accurate than the ultrasound study. Minimal edema or pericholecystic flui d is seen. IMPRESSION: No choledocholithiasis or other abnormal biliary tree finding. Pericholecystic fluid or edema is seen and the gallbladder wall is prominent. However, MRCP diagnosis of cholecystitis is less sensitive than sonography. Correlation is needed clinical and laboratory fi ndings. Multiple clustered cysts in the head of the pancreas near the pancreatic duct. IPMN type malignancy c annot be excluded. Pattern is not substantially different from November 2016. Followup the pancreatic fi ndings can be performed as clinical findings warrant.
--- NOTE | 2017-11-17 15:40 | PN ---
Date of Progress Note: 11/17/2017 Subjective: The patient is awake, alert, tolerating clear liquids. She had an MRCP done, which was negative for any common bile duct stone. She does have some cysts at the junction of the head and david dy of the pancreas, but they are not encroaching on the pancreatic duct, and she did have those same cysts a year ago. Objective: Vital Signs: Stable. Afebrile. Laboratory Data: Reviewed. Everything is normal and well. Assessment: Probable gallstone pancreatitis, improved. Recommendation: We will advance diet to full liquids. She can be discharged on antibiotics and foll ow with her primary. Should she have further evidence of biliary colic, she can follow up with me an d we can schedule for an outpatient cholecystectomy. At this time, I do not think the patient needs emergent surgical intervention. Plan of care discussed with Dr. Aguilar. BRIANDA/FIONA Voice ID: [id number] Report ID: [id number]
--- NOTE | 2017-11-17 19:14 | P.DS ---
Admission Date: 11/15/17 Discharge Date: 11/17/17 Disposition: ROUTINE DISCHARGE Discharge Condition: GOOD Consultations: Gen Surgery Procedures: None - Problems (1) Acute cholecystitis Onset Date: 11/17/17 Status: Acute (2) Acute kidney injury Onset Date: 11/17/17 Status: Acute (3) Elevated lipase Onset Date: 11/17/17 Status: Acute (4) Essential (primary) hypertension Onset Date: 11/17/17 Status: Acute (5) History of CVA (cerebrovascular accident) Onset Date: 11/17/17 Status: Acute (6) Hyperlipidemia Onset Date: 11/17/17 Status: Acute (7) Hypothyroidism Onset Date: 11/17/17 Status: Acute (8) Type 2 diabetes mellitus without complications Onset Date: 11/17/17 Status: Acute Brief History of Present Illness: See HPI Hospital Course: Overall during the hospital stay patient remained stable. Patient was initially admitted to the hospital for right upper quadrant pain along with epigastric pain. Patient was found to have acute cholecystitis on abdominal ultrasound. General surgery was consulted who reviewed the films and stated that patient does not have any surgical indication at this point and has chronic inflammation and stones. Patient's liver function tests remained stable here in the hospital and does a recommendation was made to follow up outpatient with General Surgery for elective cholecystectomy. Patient's pain improved from day 2 of hospitalization patient nausea and vomiting resolved as well. Patient did have an MRCP done which was consistent with gallbladder wall thickening along with gallstones. The patient also had pancreatitis while here in the hospital with elevated amylase and lipase which improved significantly while here in the hospital. Most likely the pancreatitis is secondary to DR stone that most likely had passed. Pain improved and patient was started on a clear liquid diet. Patient tolerated the CL diet well and thus was discharged home under stable conditions with follow up with general surgery. The other chronic conditions remained stable while here in the hospital. Vital Signs/Physical Exam: Temp Pulse Resp BP Pulse Ox 97 F 56 18 129/80 97 11/17/17 12:00 11/17/17 12:00 11/17/17 12:00 11/17/17 12:00 11/17/17 12:00 General: Alert, In no apparent distress HEENT: Atraumatic, PERRLA, EOMI Neck: Supple, JVD not distended Respiratory: Clear to auscultation bilaterally, Normal air movement Cardiovascular: Regular rate/rhythm, Normal S1 S2 Gastrointestinal: Normal bowel sounds, No tenderness Musculoskeletal: No tenderness Integumentary: No rashes Neurological: Normal speech, Normal tone, Normal affect Lymphatics: No axilla or inguinal lymphadenopathy Laboratory Data at Discharge: WBC 5.0 K/uL (4.3-10.9) D 11/17/17 03:40 Hgb 10.8 g/dL (12.0-15.0) L 11/17/17 03:40 Hct 30.8 % (36.0-45.0) L 11/17/17 03:40 Plt Count 108 K/uL (152-406) L D 11/17/17 03:40 PT 11.8 SECONDS (9.5-12.5) 11/15/17 11:10 INR 1.00 11/15/17 11:10 APTT 26.3 SECONDS (24.3-36.9) 11/15/17 11:10 Sodium 137 mEq/L (135-145) 11/17/17 03:40 Potassium 3.3 mEq/L (3.6-5.0) L 11/17/17 03:40 BUN 15 mg/dL (6-20) 11/17/17 03:40 Creatinine 1.13 mg/dL (0.44-1.00) H 11/17/17 03:40 Glucose 160 mg/dL (65-120) H 11/17/17 03:40 Phosphorus 2.7 mg/dL (2.5-4.3) 11/17/17 03:40 Magnesium 1.5 mg/dL (1.8-2.5) L D 11/17/17 03:40 Total Bilirubin 0.9 mg/dL (0.3-1.2) 11/17/17 03:40 AST 40 IU/L (10-42) 11/17/17 03:40 ALT 28 IU/L (10-60) 11/17/17 03:40 Alkaline Phosphatase 37 IU/L (42-121) L 11/17/17 03:40 B-Natriuretic Peptide 145 pg/ml (<=100) H 11/15/17 11:10 Triglycerides 39 mg/dL (35-160) 11/16/17 05:45 Amylase 74 U/L (28-100) D 11/17/17 03:40 Lipase 33 U/L (22-51) 11/17/17 03:40 Home Medications: Aspirin [Aspirin EC 81 MG] 81 mg PO DAILY 11/15/17 Carvedilol 25 mg PO BID 11/15/17 Hydrochlorothiazide 12.5 mg PO DAILY 11/15/17 Levothyroxine [Synthroid*] 1 tab PO 0600 11/15/17 Lisinopril 40 mg PO DAILY 11/15/17 Simvastatin 80 mg PO BEDTIME 11/15/17 Ciprofloxacin HCl 500 mg PO DAILY #10 tablet 11/17/17 Metronidazole [Flagyl] 500 mg PO Q8H #30 tablet 11/17/17 New Medications: Ciprofloxacin HCl 500 mg PO DAILY #10 tablet Metronidazole [Flagyl] 500 mg PO Q8H #30 tablet Patient Discharge Instructions: Please f/u with PCP in 2 week post discharge. Please F/U with Dr Caldera in 1 week post discharge. New medication. Ciprofloxacin 500mg daily for 10 days. Flagyl 500mg q8h daily for 10 days Diet: Regular Activity: Ad dmitry Followup: Jamie Caldera MD [ACTIVE - CAN ADMIT] - 1-2 Weeks
== END 2017-11-17 16:23 | disposition home or self-care (01) | DRG 444 ==
LOC: ER 10:19 → ERHOLD 15:32 → 4TH 17:20
PROVIDERS: ADMIT Family Medicine; ATTEND Family Medicine
DX: K80.00 Calculus of gallbladder with acute cholecystitis without obstruction (principal); K85.90 Acute pancreatitis without necrosis or infection, unspecified; N17.9 Acute kidney failure, unspecified; I69.354 Hemiplegia and hemiparesis following cerebral infarction affecting left non-dominant side; I10 Essential (primary) hypertension; E11.65 Type 2 diabetes mellitus with hyperglycemia; E03.9 Hypothyroidism, unspecified; E78.5 Hyperlipidemia, unspecified; N30.90 Cystitis, unspecified without hematuria; Z79.4 Long term (current) use of insulin
CPT/HCPCS: 36415; 71045; 74177; 74181; 76705; 80048; 80053; 80076; 81003; 81015; 82150; 82248; 82550; 82553; 82962; 83690; 83735; 83880; 84100; 84478; 84484; 85025; 85610; 85730; 87077; 87086; 87088; 87186; 93005; 94760; 96361; 96374; 96375; 97163; 99285; C9113; J0360; J0696; J0744; J1650; J2405; J7030

== ENCOUNTER 2017-12-08 08:41 | Day surgery (SDC) | payer OTHER ==
[2017-12-08 09:00] LABS: Absolute Lymphocytes (CBC) 2.2 K/uL (0.7-4.9); Absolute Monocytes 0.6 K/uL (0.1-1.3); Absolute Neutrophil 3.5 K/uL (1.8-8.0); Eosinophils % 2.3 % (0-4.4); Hematocrit 35.1 % (36.0-45.0); Lymphocytes % 33.8 % (15.3-44.8); MCH 31.4 pg (27.0-35.0); MCV 90.2 fL (80-100); Monocytes % 9.3 % (3.3-12.3)
[2017-12-08] MEDS ORDERED: CEFOXITIN/SWI 1gm 1 GM/10 ML SYR ONE (09:05)
[2017-12-08] MEDS ORDERED: NA CHLORIDE 0.9% 1,000 ML ONE (09:05)
[2017-12-08 09:32] LABS: Albumin 4.2 g/dL (3.2-5.5); Bilirubin Direct 0.2 mg/dL (0-0.2); Bilirubin Total 1.2 mg/dL (0.3-1.2); Protein, Total 6.4 g/dL (6.0-8.3)
[2017-12-08] MEDS ORDERED: LIDOCAINE 1% MPF 5 ML VIAL ONE (10:46)
[2017-12-08] MEDS ORDERED: PROPOFOL 200 MG/20 ML VIAL IV ONE (10:46)
[2017-12-08] MEDS ORDERED: FENTANYL CITR 100 MCG/2 ML ONE (10:46)
[2017-12-08] MEDS ORDERED: ROCURONIUM 50 MG/5 ML VIAL IV ONE (10:46)
[2017-12-08] MEDS ORDERED: GLYCOPYRROLATE 0.2 MG/ML SYR ONE (11:37)
[2017-12-08] MEDS ORDERED: ONDANSETRON 4 MG/2 ML VIAL ONE (11:37)
[2017-12-08] MEDS ORDERED: KETOROLAC 30 MG/ML INJ ONE (11:37)
[2017-12-08] MEDS ORDERED: NEOSTIGMINE 1 MG/ML -5 ML SYRINGE ONE (11:39)
[2017-12-08] MEDS ORDERED: D50W 25 GM/50 ML SYRINGE IV ONE (12:08)
[2017-12-08] MEDS ORDERED: PROMETHAZINE 25 MG/ML VIAL ONE (12:17)
[2017-12-08] MEDS ORDERED: MEPERIDINE HCL 25 MG/0.5 ML ONE (12:17)
[2017-12-08] MEDS ORDERED: HYDROCODONE/APAP 7.5/325 MG TAB ONE (14:12)
--- NOTE | 2017-12-08 23:34 | OP ---
Date of Procedure: 12/08/2017 Surgeon: Jamie Caldera MD Central Services Tech: SARAH Sharma. Preoperative Diagnosis: Gallstone pancreatitis. Postoperative Diagnosis: Gallstone pancreatitis. Procedure Performed: Laparoscopic cholecystectomy. Estimated Blood Loss: Minimal. Specimen: Gallbladder. Findings: As above. Anesthesia: General. Complications: None. Disposition: The patient tolerated the procedure in stable condition and was taken to Recovery in go od general condition. Description Of Procedure: The patient was brought to the OR and placed in the supine position. Gene ral anesthesia was begun. The patient was prepped and draped in usual sterile fashion. Marcaine 0.5 % was infiltrated locally. A #15 blade was used to make a 1-cm supraumbilical midline incision. Sub cutaneous tissue was divided. Fascia was identified and divided. A #1 Vicryl stay suture was placed . Peritoneal cavity was entered with blunt dissection. A 12-mm trocar was placed into the peritonea l cavity under direct vision. Pneumoperitoneum was established. Then, three 5-mm trocars were place d, one in the epigastrium just to the right of midline and two in the right subcostal region. Laparo scopy revealed chronic inflammation of the gallbladder with minimal omental adhesions. The gallbladd er fundus was retracted superiorly. Adhesions were taken down with sharp and blunt dissection. Blee ding was controlled with cautery. Infundibulum was identified and retracted inferolaterally. Cystic duct and cystic artery were clearly identified with blunt dissection. Clips were placed. Both stru ctures were divided. Cautery used to remove the gallbladder from the liver bed. Bleeding on the mattie er bed was controlled with cautery. The gallbladder was retrieved through the umbilicus via an EndoC atch bag. Right upper quadrant was irrigated. Effluent was clear. No evidence of bleeding or bile leakage appreciated. Subsequently, all trocars were removed under direct vision. Stay sutures were tied to each other to approximate the fascial defect. Subcutaneous wounds were irrigated. Bleeding was controlled with cautery. A 3-0 chromic was used for subcutaneous tissue and closed the skin. St erile dressing was applied. The patient was awakened and taken to Recovery in good general condition . DISCHARGE NOTE The patient will be discharged home when stable. Disposition: Home. Condition: Stable. Discharge Instructions: Resume home medications and diet. Activity as tolerated. No heavy lifting. Remove outer dressing in 2 days. Shower. Keep wound clean and dry. Follow up in my office in 1 w rampart; call for appointment. Keep Steri-Strips on at all times. Tylenol No. 3 one tablet p.o. q.4 h. p.r.n. pain. /MODL Voice ID: [id number] Report ID: [id number]
== END 2017-12-08 14:40 | disposition home or self-care (01) ==
LOC: OR 08:41
PROVIDERS: ATTEND Surgery
PROC: 0FT44ZZ Resection of Gallbladder, Percutaneous Endoscopic Approach (ICD-10-PCS; principal; 2017-12-08 11:00)
DX: K80.20 Calculus of gallbladder without cholecystitis without obstruction (principal); K85.10 Biliary acute pancreatitis without necrosis or infection; I10 Essential (primary) hypertension; E11.9 Type 2 diabetes mellitus without complications; E07.9 Disorder of thyroid, unspecified; I69.90 Unspecified sequelae of unspecified cerebrovascular disease; Z88.8 Allergy status to other drugs, medicaments and biological substances
CPT/HCPCS: 36415; 47562; 80048; 80076; 82150; 82962 ×2; 85025; 88304; J2175; J2405; J2550; J2710; J3010; J7030

== ENCOUNTER 2017-12-12 13:20 | Inpatient (IN) | payer OTHER ==
[2017-12-12] MEDS ORDERED: D50W 25 GM/50 ML SYRINGE IV ONE (13:39)
[2017-12-12] MEDS ORDERED: NA CHLORIDE 0.9% 500 ML ONE (14:00)
[2017-12-12 14:16] LABS: Absolute Lymphocytes (CBC) 1.6 K/uL (0.7-4.9); Absolute Monocytes 0.6 K/uL (0.1-1.3); Absolute Neutrophil 4.4 K/uL (1.8-8.0); Basophils % 0.3 % (0-1.3); Eosinophils % 1.3 % (0-4.4); Hematocrit 35.5 % (36.0-45.0); Lymphocytes % 23.6 % (15.3-44.8); MCH 31.3 pg (27.0-35.0); MCV 90.5 fL (80-100); MPV 8.9 fL (7.6-11.3); Monocytes % 9.2 % (3.3-12.3); RBC Red Blood Cell Count 3.93 M/uL (3.86-4.86)
[2017-12-12 14:21] LABS: Potassium 3.5 mEq/L (3.6-5.0)
[2017-12-12 14:36] LABS: Bilirubin Direct 0.9 mg/dL (0-0.2); Bilirubin Total 2.6 mg/dL (0.3-1.2); Magnesium 1.9 mg/dL (1.8-2.5)
--- NOTE | 2017-12-12 14:45 | RAD REPORT ---
EXAM DESCRIPTION: RAD - Chest Single View - 12/12/2017 2:22 pm CLINICAL HISTORY: Chest pain, syncope COMPARISON: 11/15/2017 FINDINGS: Portable technique limits examination quality. The lungs are clear of acute infiltrate. The heart is normal in size. No displaced fractures. IMPRESSION: No acute intrathoracic process suspected.
--- NOTE | 2017-12-12 14:50 | RAD REPORT ---
EXAM DESCRIPTION: CT - CTHCSPWOC - 12/12/2017 2:25 pm CLINICAL HISTORY: Trauma, head and neck injury. COMPARISON: None. TECHNIQUE: Axial 5 mm thick images of the head were obtained. Axial 2 mm thick images of the cervical spine were obtained with sagittal and coronal reconstruction images generated and reviewed. All CT scans are performed using dose optimization technique as appropriate and may include automated exposure control or mA/KV adjustment according to patient size. FINDINGS: CT HEAD WITHOUT CONTRAST: No acute hemorrhage, hydrocephalus or extra-axial collection is identified.Mild generalized brain atr ophy is present with mild periventricular and deep white matter chronic microvascular ischemic change s.No areas of brain edema or midline shift. Left vertebral artery is calcified. The paranasal sinuses and mastoids are clear.The calvarium is intact. CT CERVICAL SPINE WITHOUT CONTRAST: No fracture or subluxation.Moderate cervical degenerative changes seen in the lower cervical levels.N o prevertebral soft tissues swelling is identified. Carotid atherosclerosis. IMPRESSION: No acute intracranial or cervical spine findings. Moderate lower cervical spondylosis.
[2017-12-12 14:51] LABS: Protime INR 0.93
--- NOTE | 2017-12-12 16:20 | ER ---
Nurse's Notes [facility] Name: Josselyn Pereira Age: 87 yrs Sex: Female : 1930 Arrival Date: 12/12/2017 Time: 13:23 Bed 2 Private MD: Diagnosis: Syncope and collapse;Elevated Liver Enzymes;Jaundice Presentation: 12/12 13:21 Presenting complaint: EMS states: syncope x 2 with head injury. +TILT with 50 point sv drop. SBP 190. Pt recently had a cholecystectomy on Friday. Syncopal episodes occurred after being on the toilet and pt felt weak. SR-SB. Denies CP. Transition of care: patient was not received from another setting of care. Onset of symptoms was December 11, 2017. Care prior to arrival: Glucose check: 73. 13:21 Method Of Arrival: EMS: [facility] sv 13:21 Acuity: SHAGGY 2 sv 13:22 Initial Sepsis Screen: Does the patient meet any 2 criteria? No. Patient's initial sv sepsis screen is negative. Does the patient have a suspected source of infection? No. Patient's initial sepsis screen is negative. Historical: - Allergies: 13:25 Isosorbide Mononitrate; sg 13:25 amlodipine; sg 13:25 Hydralazine; sg - Home Meds: 13:31 carvedilol 25 mg Oral tab 1 tab 2 times per day [Active]; aspirin 81 mg Oral TbEC 1 tab sv once daily [Active]; simvastatin 80 mg Oral tab 80 mg daily [Active]; glipizide 5 mg Oral tab 0.5 tab once daily [Active]; hydralazine 25 mg Oral tab 1 tab once daily [Active]; Synthroid 50 mcg Oral tab once daily [Active]; lisinopril 40 mg Oral tab 0.5 tab twice daily [Active]; - PMHx: 13:25 CVA; Diabetes - NIDDM; Hypertension; Hypothyroidism; sg - PSHx: 13:52 Cholecystectomy; sg - Immunization history:: Adult Immunizations up to date. - Social history:: Smoking status: Patient/guardian denies using tobacco. - Family history:: not pertinent. - Hospitalizations: : No recent hospitalization is reported. Screenin:50 Abuse screen: Denies threats or abuse. Denies injuries from another. Nutritional sg screening: No deficits noted. Tuberculosis screening: No symptoms or risk factors identified. Never had TB. Fall Risk None identified. Assessment: 13:50 General: Appears in no apparent distress. comfortable, well groomed, well developed, sg well nourished, Behavior is calm, cooperative, appropriate for age, drowsy. Pain: Complains of pain in abdomen Quality of pain is described as sore, post surgical pain. Neuro: Level of Consciousness is awake, obeys commands, lethargic, Oriented to person, place, time, situation, Blast Hole Driller are equal bilaterally Moves all extremities. Full function Speech is normal, Facial symmetry appears normal. Cardiovascular: Heart tones S1 S2 present Capillary refill is brisk in bilateral fingers Patient's skin is warm and dry. Chest pain is denied. Respiratory: Airway is patent Respiratory effort is even, unlabored, Respiratory pattern is regular, symmetrical, Breath sounds are clear. GI: Abdomen is round non-distended, Bowel sounds present X 4 quads. Reports normal bowel habits, tolerance of fluids, tolerance of food. : No signs and/or symptoms were reported regarding the genitourinary system. EENT: No signs and/or symptoms were reported regarding the EENT system. Derm: Skin is intact, is thin, Skin is clammy, Skin is jaundiced, Skin temperature is cool. Musculoskeletal: No signs and/or symptoms reported regarding the musculoskeletal system. 14:47 Reassessment: Patient appears in no apparent distress at this time. Patient and/or sg family updated on plan of care and expected duration. Pain level reassessed. Patient is alert, oriented x 3, equal unlabored respirations, skin warm/dry/pink. Patient states feeling better. 15:50 Reassessment: Patient appears in no apparent distress at this time. Patient and/or sg family updated on plan of care and expected duration. Pain level reassessed. Patient is alert, oriented x 3, equal unlabored respirations, skin warm/dry/pink. Patient states feeling better. 16:50 Reassessment: Patient appears in no apparent distress at this time. Patient and/or sg family updated on plan of care and expected duration. Pain level reassessed. Patient is alert, oriented x 3, equal unlabored respirations, skin warm/dry/pink. Patient states feeling better. 18:40 Reassessment: Patient appears in no apparent distress at this time. Patient and/or sg family updated on plan of care and expected duration. Pain level reassessed. Patient is alert, oriented x 3, equal unlabored respirations, skin warm/dry/pink. pt and pt family updated on POC and the bed assignment, pt family and pt stated understanding, pt to go upstairs after shift change Patient states feeling better. 20:51 Cardiovascular: Rhythm is regular. ao Vital Signs: 13:24 BP 188 / 55; Pulse 59; Resp 18 S; Temp 97.7(O); Pulse Ox 98% on R/A; Pain 6/10; sg 14:55 Pulse 55 MON; Resp 17 S; Pulse Ox 98% on R/A; sg 14:56 BP 184 / 54; sg 19:00 BP 172 / 54; Pulse 58 MON; Resp 12 S; Pulse Ox 96% on R/A; Pain 0/10; sg ED Course: 13:23 Patient arrived in ED. sg 13:26 Arm band placed on. sg 13:29 Triage completed. sv 13:32 Malena Cook RN is Primary Nurse. sv 13:32 Patient has correct armband on for positive identification. Bed in low position. Call sv light in reach. Side rails up X2. shelter monitor on. Pulse ox on. NIBP on. Door closed. Warm blanket given. Head of bed elevated. 13:41 Jean Tristan MD is Attending Physician. wa 13:49 Initial lab(s) drawn, by nv, sent to lab. Inserted saline lock: 20 gauge in right sg antecubital area, using aseptic technique. Blood collected. Patient maintains SpO2 saturation greater than 95% on room air. 13:53 Primary Nurse role handed off by Malena Cook RN sg 13:53 Jh Lerma, TAYLOR is Primary Nurse. sg 14:[address] via stretcher. vr 14:19 X-ray completed. Portable x-ray completed in exam room. jr1 14:20 XRAY Chest (1 view) In Process Unspecified. EDMS 14:25 CT Head C Spine In Process Unspecified. EDMS 16:18 Matthew Gardiner MD is Hospitalizing Provider. wa 19:34 Louie Marshall, RN is Primary Nurse. ao 20:51 No provider procedures requiring assistance completed. Patient admitted, IV remains in ao place. Administered Medications: 13:49 Drug: D50W 50 ml Route: IVP; Site: right antecubital; sg 20:00 Follow up: Response: No adverse reaction ao 14:09 Drug: NS 0.9% 500 ml Route: IV; Rate: bolus; Site: right antecubital; sg 14:52 Follow up: Response: No adverse reaction; IV Status: Completed infusion; IV Intake: sg 490ml Point of Care Testing: Blood Glucose: 20:35 Blood Glucose: 140 mg/dL; ao Ranges: Intake: 14:52 IV: 490ml; Total: 490ml. sg Outcome: 16:20 Decision to Hospitalize by Provider. wa 20:51 Admitted to Med/surg accompanied by tech, room 221, with chart, Report called to rose mary Longo RN 20:51 Condition: stable 20:51 Instructed on the need for admit. 20:52 Patient left the ED. ao Signatures: Dispatcher [employer] EDMalena Mckeon RN RN sv Gay, Steven, RN RN Tara Cardenas Victoria vr Ortiz, Alex, RN RN ao Appiah, William, MD MD al Corrections: (The following items were deleted from the chart) 13:32 13:21 Presenting complaint: EMS states: syncope x 2 with no head injury. +TILT with 50 sv point drop. SBP 190. Pt recently had a cholecystectomy on Friday. Syncopal episodes occurred after being on the toilet and pt felt weak. sv 13:32 13:21 Care prior to arrival: None. sv sv
--- NOTE | 2017-12-12 16:20 | EDPHYS ---
Physician Documentation [facility] Name: Josselyn Pereira Age: 87 yrs Sex: Female : 1930 Arrival Date: 12/12/2017 Time: 13:23 Bed 2 Private MD: ED Physician Jean Tristan HPI: 12/12 16:07 This 87 yrs old Female presents to ER via EMS with complaints of Syncope. wa 16:07 The patient has experienced syncope, collapsed. Onset: The symptoms/episode wa began/occurred yesterday. Duration: The patient has had multiple episodes. Context: the episode(s) was witnessed, by family, occurred at home, occurred while the patient was on the toilet. Just prior to the episode the patient experienced weakness. Associated injury: Head/face: Neck:. Associated signs and symptoms: Pertinent positives:. 16:11 Current symptoms: generalized weakness. The patient has not experienced similar wa symptoms in the past. The patient has been recently seen by a physician: recent cholecystectomy. Historical: - Allergies: 13:25 Isosorbide Mononitrate; sg 13:25 amlodipine; sg 13:25 Hydralazine; sg - Home Meds: 13:31 carvedilol 25 mg Oral tab 1 tab 2 times per day [Active]; aspirin 81 mg Oral TbEC 1 tab sv once daily [Active]; simvastatin 80 mg Oral tab 80 mg daily [Active]; glipizide 5 mg Oral tab 0.5 tab once daily [Active]; hydralazine 25 mg Oral tab 1 tab once daily [Active]; Synthroid 50 mcg Oral tab once daily [Active]; lisinopril 40 mg Oral tab 0.5 tab twice daily [Active]; - PMHx: 13:25 CVA; Diabetes - NIDDM; Hypertension; Hypothyroidism; sg - PSHx: 13:52 Cholecystectomy; sg - Immunization history:: Adult Immunizations up to date. - Social history:: Smoking status: Patient/guardian denies using tobacco. - Family history:: not pertinent. - Hospitalizations: : No recent hospitalization is reported. ROS: 16:12 Constitutional: Negative for fever, chills, and weight loss, Eyes: Negative for injury, wa pain, redness, and discharge, ENT: Negative for injury, pain, and discharge, Cardiovascular: Negative for chest pain, palpitations, and edema, Respiratory: Negative for shortness of breath, cough, wheezing, and pleuritic chest pain, Abdomen/GI: Negative for abdominal pain, nausea, vomiting, diarrhea, and constipation, Back: Negative for injury and pain, : Negative for injury, bleeding, discharge, and swelling, MS/Extremity: Negative for injury and deformity, Skin: Negative for injury, rash, and discoloration. 16:12 Neck: Positive for pain at rest. 16:12 Neuro: Positive for syncope, weakness. 16:12 All other systems are negative. Exam: 16:13 Constitutional: This is a well developed, well nourished patient who is awake, alert, wa and in no acute distress. Eyes: Pupils equal round and reactive to light, extra-ocular motions intact. Lids and lashes normal. Conjunctiva and sclera are non-icteric and not injected. Cornea within normal limits. Periorbital areas with no swelling, redness, or edema. ENT: Nares patent. No nasal discharge, no septal abnormalities noted. Tympanic membranes are normal and external auditory canals are clear. Oropharynx with no redness, swelling, or masses, exudates, or evidence of obstruction, uvula midline. Mucous membranes moist. Chest/axilla: Normal chest wall appearance and motion. Nontender with no deformity. No lesions are appreciated. Cardiovascular: Regular rate and rhythm with a normal S1 and S2. No gallops, murmurs, or rubs. Normal PMI, no JVD. No pulse deficits. Respiratory: Lungs have equal breath sounds bilaterally, clear to auscultation and percussion. No rales, rhonchi or wheezes noted. No increased work of breathing, no retractions or nasal flaring. Abdomen/GI: Soft, non-tender, with normal bowel sounds. No distension or tympany. No guarding or rebound. No evidence of tenderness throughout. Back: No spinal tenderness. No costovertebral tenderness. Full range of motion. Psych: Awake, alert, with orientation to person, place and time. Behavior, mood, and affect are within normal limits. 16:13 Constitutional: The patient appears in no acute distress, alert, jaundiced 16:13 Skin: Appearance: Color: jaundiced. 16:13 Neuro: Orientation: is normal, Mentation: is normal, Cranial nerves: grossly normal. Vital Signs: 13:24 BP 188 / 55; Pulse 59; Resp 18 S; Temp 97.7(O); Pulse Ox 98% on R/A; Pain 6/10; sg 14:55 Pulse 55 MON; Resp 17 S; Pulse Ox 98% on R/A; sg 14:56 BP 184 / 54; sg 19:00 BP 172 / 54; Pulse 58 MON; Resp 12 S; Pulse Ox 96% on R/A; Pain 0/10; sg MDM: 13:41 Patient medically screened. ak 16:14 Differential Diagnosis: cardiac arrhythmia, cerebrovascular accident, GI bleed, ak transient ischemic attack, vasovagal episode, anemia. dehydration?. Data reviewed: vital signs, nurses notes. 16:16 Test interpretation: by ED physician or midlevel provider: EKG: HR: 58. sinus [place]. ak labs noted for hypoglycemia. renal insuff. elevated liver enzymes including AST/ALT and T. bili.. Response to treatment: the patient's symptoms have mildly improved after treatment. Physician consultation: Matthew Gardiner MD. Admission orders: after a detailed discussion of the patient's condition and case, the admit orders are written by me. 12/12 13:40 Order name: Glucose, Ancillary Testing; Complete Time: 14:54 [facility] 12/12 13:54 Order name: Basic Metabolic Panel; Complete Time: 14:54 ak 12/12 13:54 Order name: BNP; Complete Time: 16:15 ak 12/12 13:54 Order name: CBC with Diff; Complete Time: 14:54 ak 12/12 13:54 Order name: CPK; Complete Time: 14:54 ak 12/12 13:54 Order name: LFT's; Complete Time: 14:54 ak 12/12 13:54 Order name: CT Head C Spine; Complete Time: 14:54 ak 12/12 13:54 Order name: Magnesium; Complete Time: 14:54 ak 12/12 13:54 Order name: PT-INR; Complete Time: 16:15 ak 12/12 13:54 Order name: Troponin (emerg Dept Use Only); Complete Time: 14:54 ak 12/12 13:54 Order name: XRAY Chest (1 view); Complete Time: 14:54 ak 12/12 13:54 Order name: Urine Microscopic Only ak 12/12 13:55 Order name: Lipase; Complete Time: 14:53 ak 12/12 17:09 Order name: Urine Dipstick--Ancillary (enter results) eb 12/12 13:33 Order name: EKG; Complete Time: 13:33 sv 12/12 13:33 Order name: EKG - Nurse/Tech; Complete Time: 14:13 12/12 13:54 Order name: Cardiac monitoring; Complete Time: 14:09 ak 12/12 13:54 Order name: EKG - Nurse/Tech; Complete Time: 14:10 ak 12/12 13:54 Order name: IV Saline Lock; Complete Time: 14:10 ak 12/12 13:54 Order name: Labs collected and sent; Complete Time: 14: ak 12/12 13:54 Order name: O2 Per Protocol; Complete Time: 14: ak 12/12 13:54 Order name: O2 Sat Monitoring; Complete Time: 14:10 ak Administered Medications: 13:49 Drug: D50W 50 ml Route: IVP; Site: right antecubital; sg 20:00 Follow up: Response: No adverse reaction ao 14:09 Drug: NS 0.9% 500 ml Route: IV; Rate: bolus; Site: right antecubital; sg 14:52 Follow up: Response: No adverse reaction; IV Status: Completed infusion; IV Intake: sg 490ml Point of Care Testing: Blood Glucose: 20:35 Blood Glucose: 140 mg/dL; ao Ranges: Critical Glucose Levels:Adult <50 mg/dl or >400 mg/dl <40 mg/dl or >180 mg/dl Disposition: 12/12/17 16:20 Hospitalization ordered by Matthew Gardiner for Inpatient Admission. Preliminary diagnosis are Syncope and collapse, Elevated Liver Enzymes, Jaundice. - Bed requested for Telemetry/MedSurg (observation). - Status is Inpatient Admission. ao - Condition is Stable. - Problem is new. - Symptoms have improved. UTI on Admission? No Signatures: Dispatcher [employer] Malena Causey RN RN sv Gay, Steven, RN RN Louie Marshall RN RN ao Appiah, William, MD MD wa Botello, Elizabeth eb Corrections: (The following items were deleted from the chart) 17:21 16:20 Hospitalization Ordered by Matthew Gardiner MD for Inpatient Admission. Preliminary eb diagnosis is Syncope and collapse; Elevated Liver Enzymes; Jaundice. Bed requested for Telemetry/MedSurg (observation). Status is Inpatient Admission. Condition is Stable. Problem is new. Symptoms have improved. UTI on Admission? No. wa 18:31 17:21 12/12/2017 16:20 Hospitalization Ordered by Matthew Gardiner MD for Inpatient eb Admission. Preliminary diagnosis is Syncope and collapse; Elevated Liver Enzymes; Jaundice. Bed requested for Telemetry/MedSurg (observation). Status is Inpatient Admission. Condition is Stable. Problem is new. Symptoms have improved. UTI on Admission? No. eb 20:52 18:31 12/12/2017 16:20 Hospitalization Ordered by Matthew Gardiner MD for Inpatient ao Admission. Preliminary diagnosis is Syncope and collapse; Elevated Liver Enzymes; Jaundice. Bed requested for Telemetry/MedSurg (observation). Status is Inpatient Admission. Condition is Stable. Problem is new. Symptoms have improved. UTI on Admission? No. eb
[2017-12-12 17:37] LABS: Urine Blood NEGATIVE (NEG); Urine Glucose NEGATIVE (NEG); Urine Protein NEGATIVE (NEG); Urine Specific Gravity 1.015 (1.005-1.030); Urine pH 5.5 (5.0-7.0)
[2017-12-12 17:41] LABS: Urine Bacteria <20 /HPF (<20); Urine RBC <5 /HPF (NONE SEEN)
[2017-12-12 17:42] LABS: Urine Culture Reflex Order NOT NEEDED; Urine Yeast FEW (NONE SEEN)
--- NOTE | 2017-12-12 17:42 | EKG ---
Test Date: 2017-12-12 Test Time: 13:39:15 Production Control Coordinator: LAZARO MEASUREMENT RESULTS: Intervals: Rate: 58 [place]: 202 QRSD: 88 QT: 456 QTc: 447 [place]: P: 88 [place]: 202 QRS: 11 T: 72 INTERPRETIVE STATEMENTS: Sinus bradycardia Otherwise normal ECG Compared to ECG 11/15/2017 10:35:29 Sinus rhythm no longer present First degree AV block no longer present Myocardial infarct finding no longer present Electronically Signed On 12-12-17 17:41:18 CDT by Heber Ortiz
[2017-12-12 17:43] LABS: Urine Yeast with Hyphae PRESENT
--- NOTE | 2017-12-12 17:49 | P.HP ---
Certification for Inpatient With expected LOS: >2 Midnights Practitioner: I am a practitioner with admitting privileges, knowledge of patient current condition, hospital course, and medical plan of care. Services: Services provided to patient in accordance with Admission requirements found in Title 42 Section 412.3 of the Code of Federal Regulations Patient History Date of Service: 12/12/17 Reason for admission: fall History of Present Illness: 87 year old female with history of hypertension, DM II, hyperlipidemia, recent cholecystectomy who presented with 2 episodes of fall while in the bathroom.Patient is a poor historian.She states that twice she had fallen while in the restroom today.On one of the occasion she was sitting on the commode while the other time she was standing.She does not recall passing out.She states that she felt dizzy and her vision blurry.She also reported feeling very weak recently and had an episode of vomiting.She denied any trauma to her head.She also denies any headache, focal weakness,fever or chills, no seizure like movement noted. No bowel or urinary incontinence.No confusion post fall Allergies amlodipine Adverse Reaction (Verified 12/08/17 08:20) clear blisters on thigh hydralazine Adverse Reaction (Verified 12/08/17 08:20) Nausea/Vomiting isosorbide Adverse Reaction (Verified 12/08/17 08:20) clear blisters on thigh Home Medications: Aspirin [Aspirin EC 81 MG] 81 mg PO DAILY 11/15/17 Carvedilol 25 mg PO BID 11/15/17 Hydrochlorothiazide 12.5 mg PO DAILY 11/15/17 Levothyroxine [Synthroid*] 1 tab PO 0600 11/15/17 Lisinopril 40 mg PO DAILY 11/15/17 Simvastatin 80 mg PO BEDTIME 11/15/17 Glyburide 5 mg PO DAILY 12/08/17 - Past Medical/Surgical History Diabetic: Yes -: NIDDM -: Hypertension -: Hypothyroidism -: CVA - Family History Mother -: Heart disease Father -: Heart disease - Social History Alcohol use: No CD- Drugs: No Caffeine use: No Review of Systems 10-point ROS is otherwise unremarkable Physical Examination - Physical Exam General: Alert, In no apparent distress, Oriented x3, Other (frail looking) HEENT: Atraumatic, Normocephalic, PERRLA Neck: Supple, JVD not distended, No Thyromegaly, No LAD Respiratory: Clear to auscultation bilaterally, Normal air movement Cardiovascular: No edema, Normal pulses, Regular rate/rhythm, Normal S1 S2, No gallops, No rubs, No murmurs Gastrointestinal: Normal bowel sounds, Soft and benign, W/out hepatosplenomegaly , No ascites, No tenderness, No masses, No rebound, No guarding, Other (post surgical dressing in place) Musculoskeletal: No clubbing, No swelling, No contractures, No erythema, No tenderness, No warmth Integumentary: No rashes, No tenderness/swelling - Studies Laboratory Data (last 24 hrs) 12/12/17 13:50: PT 11.0, INR 0.93 12/12/17 13:50: WBC 6.6, Hgb 12.3, Hct 35.5 L, Plt Count 145 L 12/12/17 13:50: B-Natriuretic Peptide 333 H 12/12/17 13:50: Sodium 138, Potassium 3.5 L, BUN 23 H, Creatinine 1.34 H, Glucose 54 L, Magnesium 1.9, Total Bilirubin 2.6 H, AST 236 H D, ALT 220 H D, Alkaline Phosphatase 170 H, Lipase 24 Assessment and Plan - Problems (Diagnosis) (1) Fall Current Visit: Yes Status: Acute Plan: with possible near syncope/syncope. not clear monitor on telemetry serial enzymes neurology consult TTE (2) Acute kidney injury Onset Date: 11/17/17 Current Visit: No Status: Acute Plan: gentle hydration monitor bun/cr renally dose medications (3) Essential (primary) hypertension Onset Date: 11/17/17 Current Visit: No Status: Acute Plan: hold lisinopril and HCTZ given renal function (4) History of CVA (cerebrovascular accident) Onset Date: 11/17/17 Current Visit: No Status: Acute (5) Hyperlipidemia Onset Date: 11/17/17 Current Visit: No Status: Acute Plan: hold statin given elevated liver enzymes (6) Hypothyroidism Onset Date: 11/17/17 Current Visit: No Status: Acute Plan: resume home levothyroxine dose (7) Type 2 diabetes mellitus without complications Onset Date: 11/17/17 Current Visit: No Status: Acute Plan: hold oral hypoglycemic start sliding scale insulin ADA diet (8) Elevated liver enzymes Current Visit: Yes Status: Acute Plan: hold statin check hepatitis pane; trend liver enzymes obtain abdominal u/s blood and urine cultures - Advance Directives Does patient have a Living Will: No Does patient have a Durable POA for Healthcare: No Physician Review: Patient Assessed, Agree with Above Assessment and Plan Time Spent Managing Pts Care (In Minutes): 40
[2017-12-12] MEDS ORDERED: D50W 25 GM/50 ML SYRINGE IV PRN (20:07)
[2017-12-12] MEDS ORDERED: MAGNESIUM HYDROXIDE 8% 30 ML PO PRN (20:07)
[2017-12-12] MEDS ORDERED: PROMETHAZINE 25 MG TABLET PO PRN (20:07)
[2017-12-12] MEDS ORDERED: GLUCAGON 1 MG/VIAL IM PRN (20:07)
[2017-12-12] MEDS ORDERED: NA CHLORIDE 0.9% 1,000 ML IV SCH (20:07)
[2017-12-12] MEDS ORDERED: ONDANSETRON 4 MG/2 ML VIAL IV PRN (20:07)
[2017-12-12] MEDS ORDERED: D5 0.2 NS 1,000 ML IV ONE (20:10)
[2017-12-12] MEDS: INSULIN -REGULAR HUMAN 50 UNIT/0.5 ML ML SQ SCH (21:00)
[2017-12-12] MEDS: D5 0.45 NS 1,000 ML IV SCH (21:00)
--- NOTE | 2017-12-12 22:14 | RAD REPORT ---
EXAM DESCRIPTION: US - Abdomen Exam Complete - 12/12/2017 10:01 pm CLINICAL HISTORY: Elevated LFTs. COMPARISON: 11/15/2017 FINDINGS: Mild fatty liver is suspected. No focal liver lesions or intrahepatic biliary dilatation i s seen. Cholecystectomy. Common bile duct is normal in caliber measuring 5 millimeters. Both kidneys are normal in size, shape and echotexture. No hydronephrosis, focal lesion of concern or perinephric fluid. The spleen is normal in size measuring 10 cm. The pancreas and aorta are obscured by bowel gas. IMPRESSION: Mild fatty liver. Cholecystectomy.
[2017-12-13] MEDS: D5 0.45 NS 1,000 ML IV SCH ×2 (05:56→08:24)
[2017-12-13 06:19] LABS: Absolute Lymphocytes (CBC) 1.6 K/uL (0.7-4.9); Absolute Monocytes 0.6 K/uL (0.1-1.3); Absolute Neutrophil 2.7 K/uL (1.8-8.0); Basophils % 0.5 % (0-1.3); Eosinophils % 2.6 % (0-4.4); Hematocrit 30.1 % (36.0-45.0); Lymphocytes % 32.3 % (15.3-44.8); MCH 31.5 pg (27.0-35.0); MCV 90.1 fL (80-100); MPV 8.1 fL (7.6-11.3); Monocytes % 11.2 % (3.3-12.3); RBC Red Blood Cell Count 3.34 M/uL (3.86-4.86)
[2017-12-13 06:51] LABS: Albumin 3.1 g/dL (3.2-5.5); Bilirubin Total 1.6 mg/dL (0.3-1.2); Magnesium 1.7 mg/dL (1.8-2.5); Phosphorus 2.8 mg/dL (2.5-4.3); Potassium 3.1 mEq/L (3.6-5.0); Protein, Total 5.3 g/dL (6.0-8.3)
[2017-12-13] MEDS: LEVOTHYROXINE SOD 0.05 MG TABLET PO SCH (07:18)
[2017-12-13] MEDS: INSULIN -REGULAR HUMAN 50 UNIT/0.5 ML ML SQ SCH ×4 (07:30→21:00)
[2017-12-13] MEDS: ENOXAPARIN 40 MG/0.4 ML SQ SCH (08:24)
[2017-12-13] MEDS: ASPIRIN EC 81 MG TAB PO SCH (08:24)
[2017-12-13] MEDS ORDERED: POTASSIUM CL SA 10 MEQ TAB PO ONE (15:41)
--- NOTE | 2017-12-13 15:50 | P.PN ---
Subjective Date of Service: 12/13/17 Chief Complaint: fall Subjective: Improving Review of Systems 10-point ROS is otherwise unremarkable Physical Examination - Vital Signs Temperature: 97.6 F Blood Pressure: 174/73 Pulse: 62 Respirations: 18 Pulse Ox (%): 95 - Physical Exam General: Alert, In no apparent distress, Oriented x3 HEENT: Atraumatic, Normocephalic, PERRLA Neck: Supple, JVD not distended, No Thyromegaly, No LAD Respiratory: Clear to auscultation bilaterally, Normal air movement Cardiovascular: No edema, Normal pulses, Regular rate/rhythm, No gallops, No rubs, No murmurs Gastrointestinal: Normal bowel sounds, Soft and benign, Non-distended, W/out hepatosplenomegaly, No ascites, No tenderness, No masses, No rebound, No guarding Musculoskeletal: No clubbing, No swelling, No contractures, No erythema, No tenderness, No warmth Neurological: Normal speech, Normal strength at 5/5 x4 extr, Normal tone, Sensation intact Assessment And Plan - Current Problems (Diagnosis) (1) Fall Current Visit: Yes Status: Acute Plan: patient was dehydrated on admission. she reported diarrhea/vomiting since discharge with decreased po intake s/p hydration symptoms improved PT consult TTE (2) Acute kidney injury Onset Date: 11/17/17 Current Visit: No Status: Acute Plan: improving monitor bun/cr renally dose medications (3) Essential (primary) hypertension Onset Date: 11/17/17 Current Visit: No Status: Acute Plan: hold lisinopril and HCTZ given renal function (4) History of CVA (cerebrovascular accident) Onset Date: 11/17/17 Current Visit: No Status: Acute (5) Hyperlipidemia Onset Date: 11/17/17 Current Visit: No Status: Acute Plan: hold statin given elevated liver enzymes (6) Hypothyroidism Onset Date: 11/17/17 Current Visit: No Status: Acute Plan: resume home levothyroxine dose (7) Type 2 diabetes mellitus without complications Onset Date: 11/17/17 Current Visit: No Status: Acute Plan: hold oral hypoglycemic start sliding scale insulin ADA diet (8) Elevated liver enzymes Current Visit: Yes Status: Acute Plan: hold statin check hepatitis pane; trend liver enzymes obtain abdominal u/s blood and urine cultures Physician Review: Patient Assessed, Agree with Above Assessment and Plan Time Spent Managing PTS Care (In Minutes): 30
[2017-12-13] MEDS ORDERED: MAGNESIUM SULFATE 1 gm IVPB 1 GM/100 ML BAG IV ONE (16:00)
[2017-12-14] MEDS ORDERED: HYDRALAZINE HCL 20 MG/ML VIAL IV ONE (04:08)
[2017-12-14] MEDS: LEVOTHYROXINE SOD 0.05 MG TABLET PO SCH (05:09)
[2017-12-14 06:11] LABS: Potassium 4.2 mEq/L (3.6-5.0)
[2017-12-14] MEDS: hydroCHLOROthiazide 12.5 MG CAP PO SCH (06:14)
[2017-12-14] MEDS ORDERED: cloNIDine HCl 0.1 MG TAB PO ONE (06:39)
[2017-12-14] MEDS: ASPIRIN EC 81 MG TAB PO SCH (08:41)
[2017-12-14] MEDS: cloNIDine HCl 0.1 MG TAB PO SCH ×2 (08:41→09:00)
[2017-12-14] MEDS: ENOXAPARIN 40 MG/0.4 ML SQ SCH (08:42)
[2017-12-14] MEDS: INSULIN -REGULAR HUMAN 50 UNIT/0.5 ML ML SQ SCH ×4 (08:42→20:56)
[2017-12-14] MEDS ORDERED: LISINOPRIL 20 MG TAB PO SCH (09:00)
--- NOTE | 2017-12-14 17:44 | P.PN ---
Subjective Date of Service: 12/14/17 Chief Complaint: fall Subjective: No new changes (she reports an episode this am when on the commode when she felt dizzy and like she would pass out.) Review of Systems 10-point ROS is otherwise unremarkable Physical Examination - Vital Signs Temperature: 98 F Blood Pressure: 123/57 Pulse: 59 Respirations: 18 Pulse Ox (%): 97 - Physical Exam General: Alert, In no apparent distress, Oriented x3 HEENT: Atraumatic, Normocephalic, PERRLA Neck: Supple, JVD not distended, No Thyromegaly, No LAD Respiratory: Clear to auscultation bilaterally, Normal air movement Cardiovascular: No edema, Normal pulses, Regular rate/rhythm, Normal S1 S2 Gastrointestinal: Normal bowel sounds, Soft and benign, Non-distended, W/out hepatosplenomegaly, No tenderness, No masses, No rebound, No guarding Neurological: Normal speech, Normal strength at 5/5 x4 extr, Normal tone, Cranial nerves 3-12 intact Assessment And Plan - Current Problems (Diagnosis) (1) Acute kidney injury Onset Date: 11/17/17 Current Visit: No Status: Acute Plan: improving monitor bun/cr renally dose medications (2) Essential (primary) hypertension Onset Date: 11/17/17 Current Visit: No Status: Acute Plan: hold lisinopril and HCTZ given renal function (3) History of CVA (cerebrovascular accident) Onset Date: 11/17/17 Current Visit: No Status: Acute (4) Hyperlipidemia Onset Date: 11/17/17 Current Visit: No Status: Acute Plan: hold statin given elevated liver enzymes (5) Hypothyroidism Onset Date: 11/17/17 Current Visit: No Status: Acute Plan: resume home levothyroxine dose (6) Type 2 diabetes mellitus without complications Onset Date: 11/17/17 Current Visit: No Status: Acute Plan: hold oral hypoglycemic start sliding scale insulin ADA diet (7) Elevated liver enzymes Current Visit: Yes Status: Acute Plan: hold statin check hepatitis pane; trend liver enzymes obtain abdominal u/s blood and urine cultures (8) Syncope Current Visit: Yes Status: Acute Plan: suspect autonomic versus orthostatic hypotension patient reports near synope this am, appears episodes at home were syncope episodes however was dehydrated on admission. she reported diarrhea/vomiting since discharge with decreased po intake s/p hydration TTE/carotid dopplers check orthostatic vitals will also check cortisol level consult neurology CT head negative Physician Review: Patient Assessed, Agree with Above Assessment and Plan
[2017-12-15] MEDS: LEVOTHYROXINE SOD 0.05 MG TABLET PO SCH (05:15)
[2017-12-15] MEDS: INSULIN -REGULAR HUMAN 50 UNIT/0.5 ML ML SQ SCH ×4 (07:30→21:00)
[2017-12-15] MEDS: ASPIRIN EC 81 MG TAB PO SCH (10:11)
[2017-12-15] MEDS: ENOXAPARIN 40 MG/0.4 ML SQ SCH (10:11)
[2017-12-15] MEDS: hydroCHLOROthiazide 12.5 MG CAP PO SCH (10:12)
[2017-12-15] MEDS: cloNIDine HCl 0.1 MG TAB PO SCH (10:13)
--- NOTE | 2017-12-15 17:33 | P.PN ---
Subjective Date of Service: 12/15/17 Primary Care Provider: Unknown Chief Complaint: fall Subjective: Improving Physical Examination - Vital Signs Temperature: 97.2 F Blood Pressure: 185/75 Pulse: 58 Respirations: 16 Pulse Ox (%): 96 - Physical Exam General: Alert, In no apparent distress, Oriented x3, Cooperative HEENT: Atraumatic, Mucous membr. moist/pink Neck: Supple Respiratory: Clear to auscultation bilaterally, Normal air movement Cardiovascular: Normal pulses, Regular rate/rhythm Gastrointestinal: Normal bowel sounds, Soft and benign, Non-distended, No tenderness, No masses, No rebound, No guarding Musculoskeletal: No erythema, No tenderness, No warmth Integumentary: No tenderness/swelling, No erythema, No warmth, No cyanosis Neurological: Normal speech, Normal strength at 5/5 x4 extr, Normal tone, Normal affect Lymphatics: No axilla or inguinal lymphadenopathy - Studies Medications List Reviewed: Yes Assessment & Plan - Problems (Diagnosis) (1) Acute kidney injury Onset Date: 11/17/17 Current Visit: Yes Status: Acute Plan: Suspect acute renal injury likely from dehydration. Will continue with oral intake. Will monitor kidney function. (2) Elevated liver enzymes Onset Date: 12/15/17 Current Visit: Yes Status: Acute Plan: Hepatitis panel obtained. Statin on hold. (3) Essential (primary) hypertension Onset Date: 11/17/17 Current Visit: Yes Status: Chronic Plan: Will continue with blood pressure medication. Will monitor and adjust appropriately. Will need to decrease carvedilol. Will discontinue hydrochlorothiazide due to renal function (4) Fall Onset Date: 12/15/17 Current Visit: Yes Status: Acute Plan: Will continue with physical therapy. building services engineer consulted for skilled placement. Qualifiers: Encounter type: initial encounter Qualified Code(s): W19.XXXA - Unspecified fall, initial encounter (5) Hyperlipidemia Onset Date: 11/17/17 Current Visit: Yes Status: Chronic Plan: Will hold medication at this time due to elevated liver function Qualifiers: Hyperlipidemia type: unspecified Qualified Code(s): E78.5 - Hyperlipidemia , unspecified (6) Hypothyroidism Onset Date: 11/17/17 Current Visit: Yes Status: Chronic Plan: Will continue with medication. Tsh within normal range Qualifiers: Hypothyroidism type: unspecified Qualified Code(s): E03.9 - Hypothyroidism , unspecified (7) Syncope Current Visit: Yes Status: Acute Plan: This may beer it medication related. There is a discrepancy in her blood pressure medication. Will discontinue hydrochlorothiazide. Will decrease carvedilol. Case discussed with Neurology. Will check echocardiogram and EEG. building services engineer to help with skilled placement. Qualifiers: Syncope type: unspecified Qualified Code(s): R55 - Syncope and collapse (8) Type 2 diabetes mellitus without complications Onset Date: 11/17/17 Current Visit: Yes Status: Chronic Plan: Will check A1c. Will continue with sliding scale. Qualifiers: Diabetes mellitus watermelon inspector insulin use: without watermelon inspector use Qualified Code(s): E11.9 - Type 2 diabetes mellitus without complications (9) History of CVA (cerebrovascular accident) Onset Date: 11/17/17 Current Visit: No Status: Chronic Plan: Will continue with medication. Will monitor and adjust appropriately. Discharge Plan: [facility] Plan to discharge in: 24 Hours Time Spent Managing Pts Care (In Minutes): 55
--- NOTE | 2017-12-15 20:49 | RAD REPORT ---
EXAM DESCRIPTION: MRI - Stroke Protocol - 12/15/2017 7:26 pm CLINICAL HISTORY: Syncope, possible CVA COMPARISON: CT head December 12 TECHNIQUE: Sagittal T1- weighted images were obtained along with PD/heavily T2- weighted and T2-FLAI R images. Axial DWI and ADC mapping sequences were also obtained. Coronal heavily T2- weighted images were obtained. MRA head imaging performed with source images and 3D reconstruction images reviewed. MRA neck imaging was performed with source and 3D reconstruction imaging reviewed. Post contrast T1 i maging was performed. A 12 ml GD dosage was utilized. FINDINGS: No intracranial hemorrhage, mass or acute infarction. There is no edema or shift of midlin e structures. No extra-axial fluid collections. Travis-matter/white matter junction is preserved. Signa l voids are seen as a normal finding in the major intracranial vessels. Patient has mild to moderate degrees of atrophy and chronic ischemic change. Ventricular size is in proportion. No dural thickenin g or enhancement. No abnormal enhancement of the brain parenchyma. No globe or orbital content abnorm ality. Mastoid air cells and paranasal sinuses are clear. No sella or supra sella acute finding. MRA Head imaging shows no aneurysm or vascular malformation. Patient shows mild atherosclerotic mccrary es in the cavernous sinus portion of each internal carotid artery. There are significant atherosclero tic changes involving the right middle cerebral artery M1 - M2 junction and the A1 segment of the rig ht anterior cerebral artery. There is significant atherosclerotic change in the far peripheral middle cerebral artery branches and each posterior cerebral artery. A large right posterior communicating a rtery is present. No stenosis at the great vessel origins. No stenosis or dissection of either common carotid artery. T here is mild narrowing at the origin of each internal carotid artery not believed to exceed 50%. More distally the ICA vessels show no dissection, stenosis or acute finding. Vertebral arteries are codom inant. Minimal narrowing at the origin of each vertebral artery. IMPRESSION: No acute infarction. No hemorrhage, mass or acute intracranial finding. Mild to moderate atrophy and chronic ischemic changes are present. Extensive intracranial atherosclerotic changes are present. No intracranial aneurysm or vascular malf ormation. Minimal narrowing at the origin of each internal carotid artery not likely hemodynamically significan t. No significant cervical carotid or vertebral abnormality.
[2017-12-15] MEDS: CARVEDILOL 6.25 MG TAB PO SCH (21:16)
--- NOTE | 2017-12-16 00:43 | CON ---
Reason For Consultation: Consultation called because of syncopal episode. History Of Present Illness: Ms. Pereira is an 87-year-old patient with multiple medical problems inc luding hypertension, diabetes mellitus type 2, and dyslipidemia, who recently had a cholecystectomy a nd has had multiple episodes of syncope and collapse. The patient noted that one episode occurred in the bathroom. She was taking a shower, not particularly hot water when she felt lightheaded. There was tunneling of vision and she fell down. She subsequently had multiple falls, one occurred while sitting in the restroom and getting off the commode. The other occurred while standing and ambulatin g. She does not recall exactly the details as she is going down but again feels dizzy, has blurred v ision, feels weak all over. She reportedly had some vomiting prior to the episodes, likely related t o the cholecystitis, which she has had a cholecystectomy. She denies any shortness of breath, chest pounding, palpitations, any focal weakness in the arms, legs, or face. No tonic or clonic activity, tongue biting, or loss of bowel and bladder control with the episodes. She denies a history of seizu res. Past Medical History: As indicated above in addition to hypothyroidism. Family History: Positive for heart disease in mother and father. Social History: No alcohol, tobacco, or IV drug use. Allergies: AMLODIPINE, HYDRALAZINE, ISOSORBIDE. Medications At Home: Aspirin 81 mg daily, carvedilol 25 mg twice daily, hydrochlorothiazide 12.5 mg daily, Synthroid daily, lisinopril 40 mg daily, simvastatin 80 mg at bedtime, and glyburide 5 mg marisel y. Review of Systems: No recent fevers, chills, nausea, vomiting, myalgias, arthralgias, headache, weight change, rash, psy chiatric complaints, gastrointestinal issues, or genitourinary issues aside from mentioned above. Physical Examination: Vital Signs: Blood pressure 185/75, down to 121/56, pulse ranged from 55-66, temperature 97.2, respi ratory rate 14 to 18. Oxygen saturation 96% on room air, weight 122 pounds, height 5 feet 8 inches, BMI of 18.6. General: Ms. Pereira is resting comfortably in a chair beside her bed. HEENT: She is normocephalic, atraumatic. Sclerae anicteric. Oropharynx is pink and moist. Neck: Supple. Chest: Clear. Heart: Regular. Extremities: Show no clubbing, cyanosis, or edema. Neurological: She is alert, oriented to person, place, time, and situation. She follows commands ap propriately. She has no expressive or receptive aphasias. Cranial nerves 2 through 12 show no focal deficits. Motor examination in the upper and lower extremities, she has normal bulk and tone proxim ally and distally at 4+ to 5-/5 symmetrically in upper and lower extremities. Sensation; stocking-gl ove loss to light touch temperature in arms and legs. Reflexes depressed at 1+ in upper and lower ex tremities. Coordination intact in upper and lower extremities. Gait; she has good stance and stride . Laboratory Studies: White blood cell count 5.1, hemoglobin 10.5, hematocrit 30.1, platelet 123. INR 0.93. Chemistries; sodium 140, potassium 4.2, chloride 109, carbon dioxide 25. BUN 12, creatinine 1.08. Glucose ranged from 67 to 243, magnesium 2.0, calcium 9.6. Liver function studies show elevat ed AST 119, elevated ALT 141, alkaline phosphatase 129. Urinalysis shows trace esterase, 5-10 epithe lial cells, budding yeast present. Diagnostic Data: She did have a head trauma series CT scan panel. No fractures of skull. No hemorr ro. Her cervical spine shows no significant abnormalities. There are moderate cervical degenerati on changes in the lower cervical spinal levels noted. Assessment: Ms. Pereira is an 87-year-old patient with most likely cardiogenic orthostatic related c hanges to produce syncope. There is no evidence of stroke. No information consistent with seizure-l shon activity or seizures. Plan: 1.Still review pending MRI and MRA also that is already done. Also consider EEG to rule out an abno rmal focus or focus of epileptiform activity. 2.The patient was instructed on the importance of hydration as well as when standing, be mindful of the warning signs of syncope, which will include tunneling of vision, blurred vision, loss of vision, or visual disturbances in addition to sensation of losing consciousness. Once discharged she will h ome and follow up in clinic in 1 month or any additional neurological evaluation that may be required . LB/MODL Voice ID: [id number] Report ID: [id number]
[2017-12-16] MEDS: LEVOTHYROXINE SOD 0.05 MG TABLET PO SCH (06:21)
[2017-12-16] MEDS: INSULIN -REGULAR HUMAN 50 UNIT/0.5 ML ML SQ SCH ×4 (07:30→21:00)
[2017-12-16] MEDS: ASPIRIN EC 81 MG TAB PO SCH (08:20)
[2017-12-16] MEDS: ENOXAPARIN 40 MG/0.4 ML SQ SCH (08:21)
[2017-12-16] MEDS: CARVEDILOL 6.25 MG TAB PO SCH ×2 (08:21→21:06)
[2017-12-16 10:25] LABS: A1c Component 0.4 mg/dL
[2017-12-16 11:42] LABS: HBsAG Nonreactive (Nonreactive); Hepatitis A IgM Antibody Nonreactive
--- NOTE | 2017-12-16 12:28 | P.PN ---
Subjective Date of Service: 12/16/17 Primary Care Provider: Unknown Chief Complaint: fall Subjective: Improving Physical Examination - Vital Signs Temperature: 97.2 F Blood Pressure: 187/74 Pulse: 56 Respirations: 16 Pulse Ox (%): 97 - Physical Exam General: Alert, In no apparent distress, Oriented x3, Cooperative HEENT: Atraumatic Neck: Supple, No Thyromegaly Respiratory: Clear to auscultation bilaterally, Normal air movement Cardiovascular: Normal pulses, Regular rate/rhythm Gastrointestinal: Normal bowel sounds, Soft and benign, Non-distended, No tenderness, No masses, No rebound, No guarding Musculoskeletal: No erythema, No tenderness, No warmth Integumentary: No tenderness/swelling, No erythema, No warmth, No cyanosis Neurological: Normal speech, Normal strength at 5/5 x4 extr, Normal tone - Studies Medications List Reviewed: Yes Assessment & Plan - Problems (Diagnosis) (1) Acute kidney injury Onset Date: 11/17/17 Current Visit: Yes Status: Acute Plan: Patient likely has underlying chronic renal disease. Renal function stable this time. Will monitor closely. Recommendation for the patient to follow up with nephrology as an outpatient to further monitor. (2) Elevated liver enzymes Onset Date: 12/15/17 Current Visit: Yes Status: Acute Plan: Hepatitis panel obtained. Will recheck liver function tests to see if statin medication can be restarted. (3) Essential (primary) hypertension Onset Date: 11/17/17 Current Visit: Yes Status: Chronic Plan: Will continue with carvedilol at a lower dose. Hydrochlorothiazide has been discontinued. Will restart lisinopril but at a lower dose. Will monitor closely and adjust (4) Fall Onset Date: 12/15/17 Current Visit: Yes Status: Acute Plan: Will continue with physical therapy. food and nutrition services assistant consulted for skilled placement. Await transfer to skilled placement Qualifiers: Encounter type: initial encounter Qualified Code(s): W19.XXXA - Unspecified fall, initial encounter (5) Hyperlipidemia Onset Date: 11/17/17 Current Visit: Yes Status: Chronic Plan: Will hold medication at this time due to elevated liver function Qualifiers: Hyperlipidemia type: unspecified Qualified Code(s): E78.5 - Hyperlipidemia , unspecified (6) Hypothyroidism Onset Date: 11/17/17 Current Visit: Yes Status: Chronic Plan: Will continue with medication. Tsh within normal range Qualifiers: Hypothyroidism type: unspecified Qualified Code(s): E03.9 - Hypothyroidism , unspecified (7) Syncope Current Visit: Yes Status: Acute Plan: This may be related to medication-carvedilol. This has been decreased. MRI negative. MRI unremarkable. Patient to have EEG. Medications have been adjusted. Awaiting skilled placement transfer. EEG pending. Will discuss with Neurology Qualifiers: Syncope type: unspecified Qualified Code(s): R55 - Syncope and collapse (8) Type 2 diabetes mellitus without complications Onset Date: 11/17/17 Current Visit: Yes Status: Chronic Plan: Hemoglobin A1c well controlled. Will continue with sliding scale Qualifiers: Diabetes mellitus intermediate card tender insulin use: without fci use Qualified Code(s): E11.9 - Type 2 diabetes mellitus without complications (9) History of CVA (cerebrovascular accident) Onset Date: 11/17/17 Current Visit: No Status: Chronic Plan: Will continue with medication. Will monitor and adjust appropriately. Patient currently on aspirin and DVT prophylaxis. Statin medication has been on hold due to elevated liver function test. Discharge Plan: [facility] Plan to discharge in: 24 Hours Time Spent Managing Pts Care (In Minutes): 55
[2017-12-16 13:46] LABS: Albumin 3.8 g/dL (3.2-5.5); Bilirubin Direct 0.4 mg/dL (0-0.2); Bilirubin Total 1.4 mg/dL (0.3-1.2); Protein, Total 6.6 g/dL (6.0-8.3)
[2017-12-16 22:58] LABS: Hepatitis C Virus RNA (PCR)log <1.18 log IU/mL
[2017-12-17] MEDS: ACETAMINOPHEN 500 MG TAB PO PRN (05:42)
[2017-12-17] MEDS: LEVOTHYROXINE SOD 0.05 MG TABLET PO SCH (05:43)
[2017-12-17] MEDS: INSULIN -REGULAR HUMAN 50 UNIT/0.5 ML ML SQ SCH ×4 (07:30→21:00)
[2017-12-17 08:45] LABS: Absolute Lymphocytes (CBC) 1.9 K/uL (0.7-4.9); Absolute Monocytes 0.5 K/uL (0.1-1.3); Basophils % 0.5 % (0-1.3); Eosinophils % 3.1 % (0-4.4); Lymphocytes % 33.4 % (15.3-44.8); MCH 30.9 pg (27.0-35.0); MCV 90.2 fL (80-100); MPV 8.5 fL (7.6-11.3); Monocytes % 9.6 % (3.3-12.3); RBC Red Blood Cell Count 3.55 M/uL (3.86-4.86)
[2017-12-17] MEDS ORDERED: LISINOPRIL 10 MG TAB PO SCH (09:00)
[2017-12-17 09:02] LABS: Albumin 3.7 g/dL (3.2-5.5); Bilirubin Total 1.4 mg/dL (0.3-1.2); Potassium 4.5 mEq/L (3.6-5.0); Protein, Total 6.1 g/dL (6.0-8.3)
[2017-12-17] MEDS: CARVEDILOL 6.25 MG TAB PO SCH ×2 (09:47→21:01)
[2017-12-17] MEDS: ASPIRIN EC 81 MG TAB PO SCH (09:47)
[2017-12-17] MEDS: ENOXAPARIN 40 MG/0.4 ML SQ SCH (09:47)
--- NOTE | 2017-12-17 10:04 | P.PN ---
Subjective Date of Service: 12/17/17 Primary Care Provider: Unknown Chief Complaint: fall Subjective: Improving Physical Examination - Vital Signs Temperature: 97.7 F Blood Pressure: 139/63 Pulse: 73 Respirations: 18 Pulse Ox (%): 97 - Physical Exam General: Alert, In no apparent distress, Oriented x3, Cooperative HEENT: Atraumatic Neck: Supple Respiratory: Clear to auscultation bilaterally, Normal air movement Cardiovascular: Normal pulses, Regular rate/rhythm Gastrointestinal: Normal bowel sounds, Soft and benign, Non-distended Musculoskeletal: No erythema, No tenderness, No warmth Integumentary: No tenderness/swelling, No erythema, No warmth, No cyanosis Neurological: Normal speech, Normal strength at 5/5 x4 extr, Normal tone, Normal affect - Studies Medications List Reviewed: Yes Assessment & Plan - Problems (Diagnosis) (1) Acute kidney injury Onset Date: 11/17/17 Current Visit: Yes Status: Acute Plan: Patient likely has underlying chronic renal disease. Renal function stable this time. I will consult Nephrology to address. (2) Elevated liver enzymes Onset Date: 12/15/17 Current Visit: Yes Status: Acute Plan: Hepatitis panel obtained. Patient has Hepatitis C. She will need to see GI as outpatient. Liver function improved. (3) Essential (primary) hypertension Onset Date: 11/17/17 Current Visit: Yes Status: Chronic Plan: Will continue with carvedilol at a lower dose. Hydrochlorothiazide has been discontinued. Will restart lisinopril but at a lower dose. Will continue to monitor closely and adjust (4) Fall Onset Date: 12/15/17 Current Visit: Yes Status: Acute Plan: Will continue with physical therapy. field services director consulted for skilled placement. Await transfer to skilled placement Qualifiers: Encounter type: initial encounter Qualified Code(s): W19.XXXA - Unspecified fall, initial encounter (5) Hyperlipidemia Onset Date: 11/17/17 Current Visit: Yes Status: Chronic Plan: Will restart medication but lower dose due to Hepatitis C. Qualifiers: Hyperlipidemia type: unspecified Qualified Code(s): E78.5 - Hyperlipidemia , unspecified (6) Hypothyroidism Onset Date: 11/17/17 Current Visit: Yes Status: Chronic Plan: Will continue with medication. Tsh within normal range Qualifiers: Hypothyroidism type: unspecified Qualified Code(s): E03.9 - Hypothyroidism , unspecified (7) Syncope Current Visit: Yes Status: Acute Plan: This may be related to medication-carvedilol. This has been decreased. MRI negative. MRI unremarkable. Patient to have EEG. Medications have been adjusted. Awaiting skilled placement transfer. EEG pending. Will discuss with Neurology Qualifiers: Syncope type: unspecified Qualified Code(s): R55 - Syncope and collapse (8) Type 2 diabetes mellitus without complications Onset Date: 11/17/17 Current Visit: Yes Status: Chronic Plan: Hemoglobin A1c well controlled. Will continue with sliding scale Qualifiers: Diabetes mellitus terminal worker insulin use: without terminal worker use Qualified Code(s): E11.9 - Type 2 diabetes mellitus without complications (9) History of CVA (cerebrovascular accident) Onset Date: 11/17/17 Current Visit: No Status: Chronic Plan: Will continue with medication. Will monitor and adjust appropriately. Patient currently on aspirin and DVT prophylaxis. Will restart statin medication (10) Chronic renal disease Current Visit: Yes Status: Suspected Plan: Suspect chronic renal disease consult Nephrology to further assess. Recent ultrasound unremarkable. Medications will need to be renally dosed Qualifiers: Chronic kidney disease stage: stage 3 (moderate) Qualified Code(s): N18.3 - Chronic kidney disease, stage 3 (moderate) (11) Hepatitis C Current Visit: Yes Status: Chronic Plan: Patient found to have hepatitis-C. This can be further addressed as an outpatient with GI. Qualifiers: Viral hepatitis chronicity: chronic Hepatic coma status: without hepatic coma Qualified Code(s): B18.2 - Chronic viral hepatitis C Discharge Plan: Other (Skilled placement) Plan to discharge in: 24 Hours Time Spent Managing Pts Care (In Minutes): 55
--- NOTE | 2017-12-17 16:13 | CON ---
Date of Consultation: 12/17/2017 Additional Consulting Physician: Daniel Montoya DO Reason For Consultation: Elevated BUN and creatinine, fluid management. History Of Present Illness: This is a pleasant 87-year-old female with significant past medical hist ory of diabetes since 2007, complicated with a neuropathy, no retinopathy, last checkup 4 years ago, hypertension, hyperlipidemia, no coronary artery disease. The patient has arthritis, used to use Adv il every other day according to her between 10-15 tablets a month. The patient came to the hospital for syncopal episode on the , found to have elevated BUN and creatinine. For that reason, we have been consulted. On presentation, creatinine was 1.3, GFR of 37. Currently creatinine down to 1.2, GFR of 42. The patient being on STEVE inhibitor. Reviewing the record, there is no hypotension, in fa ct on presentation her blood pressure was elevated on 180, but again the patient had syncopal episode . Workup had atherosclerotic vascular path on the MRA. The patient denied any recent change in her medication. No hospitalization. No IV contrast. No rec ent exposure for antibiotics. No rashes. The patient admits that she has nocturnal urea and urine h esitancy. Past Medical History: Include: 1.Diabetes, complicated with neuropathy. 2.Hypertension. 3.Hyperlipidemia. Social History: Denies smoking, denies drinking, denies drug abuse. Family History: Positive for hypertension. Allergies: TO AMLODIPINE AND HYDRALAZINE WITH ISOSORBIDE. Home Medications: Include carvedilol 25 mg b.i.d., aspirin, hydrochlorothiazide 12.5, levothyroxine, simvastatin, and glyburide. Review of Systems: Head and Neck: No red eye. No ear pain. GI: No nausea. No vomiting. : No polyuria. No dysuria. No hematuria. 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 Respiratory: No shortness of breath. Cardiovascular: Has syncope. Musculoskeletal: Has joint pain. Neuro: Has syncope. Endocrine: No polydipsia. Skin: No rash. Physical Examination: General: When I saw the patient, the patient sitting in the chair comfortable, not on any distress. Vital Signs: Blood pressure 139/63, pulse of 73, afebrile. Chest: Clear to auscultation. Heart: S1, S2. Regular. Abdomen: Soft, nontender. Extremities: No edema. Neuro: Nonfocal. Laboratory Data: Sodium 139, potassium 4.5, bicarb 29, BUN 23, creatinine 1.2, calcium 9.7. Urinalysis; specific gravity of 10/15, WBC less than 5, protein negative. WBC 5.6, H and H 11/32, pl atelets 192. Medications: Current medications in the hospital include: 1.Promethazine. 2.Aspirin. 3.Lovenox. 4.Lisinopril 10 mg. 5.Carvedilol 6.25 b.i.d. 6.Levothyroxine. Assessment And Plan: 1.Acute kidney injury on chronic kidney disease, mostly secondary to over diuresis, poor perfusion, acute tubular necrosis, secondary to hypertension, nephrosclerosis. Reviewing the record for the pat ient, the patient's back in September GFR within normal limits, creatinine 0.9. I am going to go ahea d and get renal ultrasound to rule out any obstructive uropathy given the urology symptoms. I agree with holding the hydrochlorothiazide and we will follow up. 2.Hypertension. Given the acute kidney injury, hold hydrochlorothiazide. I am going to go ahead an d hold the lisinopril, and we will place the patient on gentle hydration. We will follow up. 3.Syncope. Follow up with Neurology. 4.Diabetes, as by primary. STEFANI/FIONA Voice ID: [id number] Report ID: [id number]
[2017-12-17] MEDS: NA CHLORIDE 0.9% 1,000 ML IV SCH (17:18)
[2017-12-17 19:35] LABS: Urine Appearance CLOUDY; Urine Bilirubin NEGATIVE (NEG); Urine Blood NEGATIVE (NEG); Urine Color YELLOW; Urine Glucose NEGATIVE (NEG); Urine Protein NEGATIVE (NEG); Urine Urobilinogen 0.2 mg/dL (0.2-1.0); Urine pH 6.5 (5.0-7.0)
[2017-12-17 19:42] LABS: UR CREAT 54.1 mg/dL; Urine Protein/Creatinine Ratio 0.17 (<0.15)
[2017-12-17 19:43] LABS: Urine Microscopic Reflex ORDER UMIC
[2017-12-17 20:00] LABS: Urine Bacteria >50 /HPF (<20); Urine Culture Reflex Order REFLEXED; Urine Mucus 1+ /HPF (NONE SEEN); Urine RBC <5 /HPF (NONE SEEN)
[2017-12-18 06:21] LABS: Albumin 3.3 g/dL (3.2-5.5); Potassium 3.8 mEq/L (3.6-5.0)
[2017-12-18 06:28] LABS: Phosphorus 3.3 mg/dL (2.5-4.3); Thyroid Stimulating Hormone 4.16 uIU/mL (0.34-5.60)
[2017-12-18] MEDS: LEVOTHYROXINE SOD 0.05 MG TABLET PO SCH (06:34)
[2017-12-18] MEDS: INSULIN -REGULAR HUMAN 50 UNIT/0.5 ML ML SQ SCH ×4 (07:30→21:00)
[2017-12-18] MEDS: ENOXAPARIN 40 MG/0.4 ML SQ SCH (08:12)
[2017-12-18] MEDS: ASPIRIN EC 81 MG TAB PO SCH (08:12)
[2017-12-18] MEDS: NA CHLORIDE 0.9% 1,000 ML IV SCH (08:13)
[2017-12-18] MEDS: CARVEDILOL 6.25 MG TAB PO SCH (08:13)
--- NOTE | 2017-12-18 09:32 | P.PN ---
Subjective Date of Service: 12/18/17 Primary Care Provider: Unknown Chief Complaint: fall Subjective: Improving Physical Examination - Vital Signs Temperature: 97.1 F Blood Pressure: 199/80 Pulse: 70 Respirations: 18 Pulse Ox (%): 98 - Physical Exam General: Alert, In no apparent distress, Oriented x3, Cooperative HEENT: Atraumatic Neck: Supple Respiratory: Clear to auscultation bilaterally, Normal air movement Cardiovascular: Normal pulses, Regular rate/rhythm Gastrointestinal: Normal bowel sounds, Soft and benign, Non-distended Musculoskeletal: No erythema, No tenderness, No warmth Integumentary: No erythema, No warmth, No cyanosis Neurological: Normal speech, Normal strength at 5/5 x4 extr, Normal tone, Normal affect Lymphatics: No axilla or inguinal lymphadenopathy - Studies Medications List Reviewed: Yes Assessment & Plan - Problems (Diagnosis) (1) Acute kidney injury Onset Date: 11/17/17 Current Visit: Yes Status: Acute Plan: Patient likely with chronic renal disease. Renal function improved. Will discuss with nephrology. Overall stable. (2) Elevated liver enzymes Onset Date: 12/15/17 Current Visit: Yes Status: Acute Plan: Hepatitis panel obtained. Patient has Hepatitis C. She will need to see GI as outpatient. Liver function improved. (3) Essential (primary) hypertension Onset Date: 11/17/17 Current Visit: Yes Status: Chronic Plan: Will continue to adjust carvedilol. Hydrochlorothiazide and lisinopril have been discontinued. Will discuss with nephrology to see if lisinopril needs to be restarted if blood pressure still not well controlled. (4) Fall Onset Date: 12/15/17 Current Visit: Yes Status: Acute Plan: Will continue with physical therapy. director of anesthesia services consulted for skilled placement. Await transfer to skilled placement Qualifiers: Encounter type: initial encounter Qualified Code(s): W19.XXXA - Unspecified fall, initial encounter (5) Hyperlipidemia Onset Date: 11/17/17 Current Visit: Yes Status: Chronic Plan: Will restart medication but lower dose due to Hepatitis C. Qualifiers: Hyperlipidemia type: unspecified Qualified Code(s): E78.5 - Hyperlipidemia , unspecified (6) Hypothyroidism Onset Date: 11/17/17 Current Visit: Yes Status: Chronic Plan: Will continue with medication. Tsh within normal range Qualifiers: Hypothyroidism type: unspecified Qualified Code(s): E03.9 - Hypothyroidism , unspecified (7) Syncope Current Visit: Yes Status: Acute Plan: This may be related to multiple medications likely hypertensive medication related. Medications have been adjusted. MRI negative. MRI unremarkable. Awaiting results on EEG. Will discuss with Neurology. Will continue current plan of care. Qualifiers: Syncope type: unspecified Qualified Code(s): R55 - Syncope and collapse (8) Type 2 diabetes mellitus without complications Onset Date: 11/17/17 Current Visit: Yes Status: Chronic Plan: Hemoglobin A1c well controlled. Will continue with sliding scale Qualifiers: Diabetes mellitus long term care administrator insulin use: without assisted use Qualified Code(s): E11.9 - Type 2 diabetes mellitus without complications (9) History of CVA (cerebrovascular accident) Onset Date: 11/17/17 Current Visit: No Status: Chronic Plan: Will continue with medication. Will monitor and adjust appropriately. Patient currently on aspirin and DVT prophylaxis. Will restart statin medication (10) Chronic renal disease Current Visit: Yes Status: Suspected Plan: Suspect chronic renal disease consult Nephrology to further assess. Recent ultrasound unremarkable. Medications have been adjusted per renal function. Will discuss with nephrology Qualifiers: Chronic kidney disease stage: stage 3 (moderate) Qualified Code(s): N18.3 - Chronic kidney disease, stage 3 (moderate) (11) Hepatitis C Current Visit: Yes Status: Chronic Plan: Patient found to have hepatitis-C. This can be further addressed as an outpatient with GI. Qualifiers: Viral hepatitis chronicity: chronic Hepatic coma status: without hepatic coma Qualified Code(s): B18.2 - Chronic viral hepatitis C Discharge Plan: Other (Skilled placement) Plan to discharge in: 24 Hours Time Spent Managing Pts Care (In Minutes): 55
[2017-12-18] MEDS: Levofloxacin 250mg IV 250 MG/50 ML BAG IV SCH ×2 (12:35→12:37)
[2017-12-18] MEDS: NITROGLYCERIN 0.4 MG/HR (10 MG) PATCH TD SCH (13:38)
[2017-12-18] MEDS ORDERED: DILTIAZEM HCL 60 MG TAB PO SCH (14:00)
--- NOTE | 2017-12-18 16:25 | PN ---
Date of Progress Note: 12/18/2017 Subjective: The patient is doing well. No nausea. No vomiting. Blood pressure is still not contro lled. Physical Examination: Vital Signs: Blood pressure 199/80, pulse of 78, afebrile. The patient had good urine output. Chest: Clear to auscultation. Heart: S1, S2. Regular. Abdomen: Soft, nontender. Extremities: No edema. Laboratory Data: WBC 5.6, H and H 11/32, platelets 192. Sodium 138, potassium 3.8, bicarb 25, BUN 2 5, creatinine down to 1, GFR of 50, calcium 8.9, phosphorus 3.3. PTH is still pending. Protein crea tinine is 0.1. Hep C was positive. Medications: Current medications the patient on its include: 1.Aspirin. 2.Promethazine. 3.Carvedilol 12.5. 4.Tylenol. 5.Levothyroxine. 6.Normal saline at 50 per hour. Assessment And Plan: 1.Acute kidney injury secondary to prerenal, toxic acute tubular necrosis. Continue to recover back to her baseline. I am going to keep holding hydrochlorothiazide and STEVE inhibitor for the time courtnyein g. It was normal sized kidney. We will discontinue IV fluid. 2.Hypertension, uncontrolled. Discontinue IV fluid. Start the patient on Norvasc. The patient nestor bryant started on carvedilol. We will keep holding hydrochlorothiazide and STEVE inhibitor for the time being and we will follow up the patient. The patient is allergic to amlodipine. We will add diltiaz em. 3.Urinary tract infection culture positive. We will monitor the patient. 4.Hepatitis C. I doubt that she has nephritis given the improvement in the kidney function, so I am not going to proceed with workup right now. We will follow up with jake torres. ANDRES Voice ID: [id number] Report ID: [id number]
[2017-12-18] MEDS: CARVEDILOL 12.5 MG TAB PO SCH (21:34)
[2017-12-19 06:11] LABS: Albumin 3.6 g/dL (3.2-5.5); Phosphorus 3.2 mg/dL (2.5-4.3); Potassium 4.4 mEq/L (3.6-5.0)
[2017-12-19] MEDS: LEVOTHYROXINE SOD 0.05 MG TABLET PO SCH (06:40)
[2017-12-19] MEDS: INSULIN -REGULAR HUMAN 50 UNIT/0.5 ML ML SQ SCH ×4 (07:30→21:00)
--- NOTE | 2017-12-19 08:52 | P.PN ---
Subjective Date of Service: 12/19/17 Primary Care Provider: Unknown Chief Complaint: fall Subjective: Doing well Physical Examination - Vital Signs Temperature: 97.5 F Blood Pressure: 148/67 Pulse: 79 Respirations: 18 Pulse Ox (%): 98 - Physical Exam General: Alert, In no apparent distress, Oriented x3, Cooperative HEENT: Atraumatic, Mucous membr. moist/pink Neck: Supple Respiratory: Clear to auscultation bilaterally, Normal air movement Cardiovascular: Normal pulses, Regular rate/rhythm Gastrointestinal: Normal bowel sounds, Soft and benign, Non-distended, No tenderness, No masses, No rebound, No guarding Musculoskeletal: No erythema, No tenderness, No warmth Integumentary: No tenderness/swelling, No erythema, No warmth, No cyanosis Neurological: Normal speech, Normal strength at 5/5 x4 extr, Normal tone, Normal affect Lymphatics: No axilla or inguinal lymphadenopathy - Studies Medications List Reviewed: Yes Assessment & Plan - Problems (Diagnosis) (1) Acute kidney injury Onset Date: 11/17/17 Current Visit: Yes Status: Acute Plan: Patient likely with chronic renal disease. Renal function improved. Overall stable. Patient with UTI. Awaiting urine culture. Patient on IV antibiotic therapy. Currently awaiting skilled placement. (2) Elevated liver enzymes Onset Date: 12/15/17 Current Visit: Yes Status: Acute Plan: Hepatitis panel obtained. Patient has Hepatitis C. She will need to see GI as outpatient. Liver function improved. (3) Essential (primary) hypertension Onset Date: 11/17/17 Current Visit: Yes Status: Chronic Plan: Blood pressure better controlled on carvedilol. This has been adjusted. Losartan and hydrochlorothiazide has been discontinued. (4) Fall Onset Date: 12/15/17 Current Visit: Yes Status: Acute Plan: Will continue with physical therapy. tax services manager consulted for skilled placement. Await transfer to skilled placement Qualifiers: Encounter type: initial encounter Qualified Code(s): W19.XXXA - Unspecified fall, initial encounter (5) Hyperlipidemia Onset Date: 11/17/17 Current Visit: Yes Status: Chronic Plan: Will restart medication but lower dose due to Hepatitis C. Qualifiers: Hyperlipidemia type: unspecified Qualified Code(s): E78.5 - Hyperlipidemia , unspecified (6) Hypothyroidism Onset Date: 11/17/17 Current Visit: Yes Status: Chronic Plan: Will continue with medication. Tsh within normal range Qualifiers: Hypothyroidism type: unspecified Qualified Code(s): E03.9 - Hypothyroidism , unspecified (7) Syncope Current Visit: Yes Status: Acute Plan: This may be related to multiple medications likely hypertensive medication related. Medications have been adjusted. MRI negative. MRI unremarkable. EEG negative. Await skilled placement. Will continue current plan of care. Qualifiers: Syncope type: unspecified Qualified Code(s): R55 - Syncope and collapse (8) Type 2 diabetes mellitus without complications Onset Date: 11/17/17 Current Visit: Yes Status: Chronic Plan: Hemoglobin A1c well controlled. Will continue with sliding scale Qualifiers: Diabetes mellitus director apparel insulin use: without director apparel use Qualified Code(s): E11.9 - Type 2 diabetes mellitus without complications (9) History of CVA (cerebrovascular accident) Onset Date: 11/17/17 Current Visit: No Status: Chronic Plan: Will continue with medication. Will monitor and adjust appropriately. Patient currently on aspirin and DVT prophylaxis. (10) Chronic renal disease Current Visit: Yes Status: Suspected Plan: Suspect chronic renal disease consult Nephrology to further assess. Recent ultrasound unremarkable. Medications have been adjusted per renal function. Case discussed with nephrology Qualifiers: Chronic kidney disease stage: stage 3 (moderate) Qualified Code(s): N18.3 - Chronic kidney disease, stage 3 (moderate) (11) Hepatitis C Current Visit: Yes Status: Chronic Plan: Patient found to have hepatitis-C. This can be further addressed as an outpatient with GI. Qualifiers: Viral hepatitis chronicity: chronic Hepatic coma status: without hepatic coma Qualified Code(s): B18.2 - Chronic viral hepatitis C (12) UTI (urinary tract infection) Current Visit: Yes Status: Acute Plan: Await urine culture results. Patient on antibiotic therapy. Qualifiers: Urinary tract infection type: site unspecified Hematuria presence: without hematuria Qualified Code(s): N39.0 - Urinary tract infection, site not specified Discharge Plan: Other (Skilled placement) Plan to discharge in: 24 Hours
[2017-12-19] MEDS: ENOXAPARIN 30 MG/0.3 ML SQ SCH (09:19)
[2017-12-19] MEDS: ASPIRIN EC 81 MG TAB PO SCH (09:20)
[2017-12-19] MEDS: NITROGLYCERIN 0.4 MG/HR (10 MG) PATCH TD SCH (09:20)
[2017-12-19] MEDS: CARVEDILOL 12.5 MG TAB PO SCH ×2 (09:21→22:03)
--- NOTE | 2017-12-19 14:20 | EEG ---
CHART: [id number] TEST ID#: [id number] DATE OF STUDY: 12/15/2017 THE EEG WAS RECORDED PORTABLE IN THE PATIENTS ROOM ON A 17 CHANNEL MACHINE. ELECTRODES WERE APPLIED IN THE USUAL MANNER USING THE INTERNATIONAL 10-20 SYSTEM. THE WAKING BACKGROUND RHYTHM IN THIS RECORD CONSISTS OF VERY WELL DEVELOPED AND WELL ORGANIZED WAVES OF 9 HZ., MAXIMAL IN THE POSTERIOR HEAD REGIONS WHICH ATTENUATE NORMALLY WITH EYE OPENING. LOW-VOLTAGE 18-22 HZ ACTIVITY IS EXPRESSED IN THE FRONTAL REGIONS. THERE ARE NO FOCAL OR LATERALIZING FEATURES. NO EPILEPTIFORM ACTIVITY APPEARS. SLEEP OCCURRED NATURALLY. IN ADDITION NORMAL SLEEP PATTERNS ARE PRESENT. HYPERVENTILATION WAS NOT PERFORMED. PHOTIC STIMULATION PRODUCED GOOD DRIVING BILATERALLY. IMPRESSION: NORMAL EEG FOR THE AGE OF THE PATIENT IN [place], DROWSINESS AND SLEEP.
--- NOTE | 2017-12-20 01:19 | PN ---
Date of Progress Note: 12/19/2017 Chief Complaint: Elevated BUN and creatinine. Subjective: The patient has multiple medical problems including history of diabetes mellitus diagnosed back in 2007, complicated by neuropathy. She denies retinopathy. Has history of hypertension and hyperlipidemia. There is no history of coronary artery disease. The patient has osteoarthritis and was using Advil at least 10-15 tablets per month. On presentation to the hospital, creatinine was 1.3, GFR 37. The patient was treated with STEVE inhibitor. Work was initiated for possible atherosclerotic vascular disease. Review of Systems: The patient denies fever, chills. Denies nausea or vomiting. Physical Examination: Lungs: Clear to auscultation bilaterally. Heart: S1, S2. Abdomen: Soft, benign, nontender. Extremities: No edema. Laboratory Data: Sodium is 139, potassium is 4.5, bicarbonate 29. BUN 23, creatinine 1.2, calcium 9.7. Urinalysis; specific gravity 1.015, wbc's less than 5, protein negative she. Platelets 192,000, hemoglobin 11, hematocrit 32, WBC 5.6. Impression And Plan: 1. Acute kidney injury secondary to prerenal azotemia with nonoliguric acute tubular necrosis. The patient has underlying history of chronic kidney disease with hypertensive kidney disease and benign nephrosclerosis. Previous creatinine baseline in September was 0.9. Continue to avoid nonsteroidal anti- inflammatory medication. HCTZ is on hold. 2. Monitor electrolytes, fluid intake, and urine output. 3. Hypertension. STEVE inhibitor currently on hold because of acute kidney injury. Adjust blood pressure medication as needed. 4. Diabetes mellitus. Continue insulin per sliding scale. Monitor blood glucose. 5. Renal functions have not improved significantly since yesterday. BUN is 27 , creatinine 1.24. Electrolytes as follows; sodium 140, potassium 4.4, chloride 106, CO2 of 27, glucose 129. Abdominal ultrasound was done on 2017 and it did not show hydronephrosis. There is no concern of any mass or focal lesion at this point. Kidneys are normal in size, shape, and echotexture. NOHEMY/FIONA Voice ID: [id number] Report ID: [id number] LILLIAM
[2017-12-20 05:54] LABS: Albumin 3.3 g/dL (3.2-5.5); Phosphorus 3.5 mg/dL (2.5-4.3); Potassium 4.1 mEq/L (3.6-5.0)
[2017-12-20] MEDS: LEVOTHYROXINE SOD 0.05 MG TABLET PO SCH (05:56)
[2017-12-20] MEDS: INSULIN -REGULAR HUMAN 50 UNIT/0.5 ML ML SQ SCH ×4 (07:30→21:00)
[2017-12-20] MEDS: ENOXAPARIN 30 MG/0.3 ML SQ SCH (09:37)
[2017-12-20] MEDS: ASPIRIN EC 81 MG TAB PO SCH (09:37)
[2017-12-20] MEDS: NITROGLYCERIN 0.4 MG/HR (10 MG) PATCH TD SCH (09:38)
[2017-12-20] MEDS: CARVEDILOL 12.5 MG TAB PO SCH ×2 (09:38→21:09)
[2017-12-20 12:20] LABS: Absolute Lymphocytes (CBC) 1.9 K/uL (0.7-4.9); Absolute Monocytes 0.4 K/uL (0.1-1.3); Absolute Neutrophil 1.9 K/uL (1.8-8.0); Basophils % 0.6 % (0-1.3); Eosinophils % 3.7 % (0-4.4); Lymphocytes % 43.3 % (15.3-44.8); MCH 30.6 pg (27.0-35.0); MCV 92.1 fL (80-100); MPV 8.3 fL (7.6-11.3); Monocytes % 9.2 % (3.3-12.3); RBC Red Blood Cell Count 3.26 M/uL (3.86-4.86)
[2017-12-20] MEDS: Levofloxacin 250mg IV 250 MG/50 ML BAG IV SCH ×2 (12:36→13:00)
[2017-12-20] MEDS: AMPICILLIN TRIHYDRATE 250 MG CAP PO SCH ×2 (12:36→17:10)
[2017-12-20 12:51] LABS: Albumin 3.5 g/dL (3.2-5.5); Potassium 3.8 mEq/L (3.6-5.0)
--- NOTE | 2017-12-20 15:25 | PN ---
Date of Progress Note: 12/20/2017 Chief Complaint: Acute on chronic kidney injury. History Of Present Illness: Acute kidney injury with prerenal azotemia and nonoliguric ATN. The patient does not have uremic symptomatology. Renal function is plateauing. Review of Systems: Denies fever, chills. Physical Examination: Lungs: Clear to auscultation bilaterally. Heart: S1, S2. Abdomen: Soft, benign. Extremities: No edema. Laboratory Data: Hemoglobin 11.0, WBC 5.6, platelet count 192,000. BUN 29, creatinine 1.15, glucose 122, calcium 9.1, phosphorus 3.5, sodium 138, potassium 4.1, chloride 107, CO2 25. Impression And Plan: 1. Acute kidney injury in recovery phase. The patient has chronic kidney disease, stage 3. Monitor renal function. This may represent her new baseline although creatinine levels somewhat improved over the last several days. The patient will need to avoid nonsteroidal anti-inflammatory medication. Likely there is an effect of nonsteroidal anti-inflammatory medication with renal hypoperfusion and acute kidney injury. Monitor urinalysis to rule out an evidence of nephritis and possible allergic interstitial nephritis secondary to nonsteroidal anti-inflammatory medication. 2. Hypertension. Continue medication. STEVE inhibitor on hold because of acute kidney injury. 3. Diabetes mellitus. Continue insulin per sliding scale. 4. The patient needs to avoid nonsteroidal anti-inflammatory medication which was the main culprit for acute kidney injury in her case. DWAYNE Voice ID: [id number] Report ID: [id number] MTDRik
[2017-12-20] MEDS: levoFLOXacin 250 MG TAB PO SCH (15:35)
[2017-12-20] MEDS ORDERED: HYDRALAZINE HCL 10 MG TABLET PO PRN (17:36)
[2017-12-20] MEDS ORDERED: AMLODIPINE 10 MG TAB PO SCH (18:01)
[2017-12-20] MEDS ORDERED: cloNIDine HCl 0.1 MG TAB PO PRN (18:10)
[2017-12-20] MEDS ORDERED: HOME MED 1 EA UNK (Simvastatin [Zocor] 40 MG) PO SCH (21:00)
[2017-12-20] MEDS ORDERED: HOME MED 1 EA UNK (Simvastatin [Zocor] 80 MG) PO SCH (21:00)
[2017-12-20] MEDS: ATORVASTATIN 20 MG TAB PO SCH (21:09)
[2017-12-20] MEDS: ACETAMINOPHEN 500 MG TAB PO PRN (22:51)
[2017-12-21] MEDS: AMPICILLIN TRIHYDRATE 250 MG CAP PO SCH ×3 (00:22→06:00)
[2017-12-21 06:32] LABS: Albumin 3.1 g/dL (3.2-5.5); Phosphorus 3.4 mg/dL (2.5-4.3); Potassium 4.4 mEq/L (3.6-5.0)
[2017-12-21] MEDS: LEVOTHYROXINE SOD 0.05 MG TABLET PO SCH (06:47)
[2017-12-21] MEDS: INSULIN -REGULAR HUMAN 50 UNIT/0.5 ML ML SQ SCH ×4 (07:30→21:00)
[2017-12-21] MEDS: ENOXAPARIN 30 MG/0.3 ML SQ SCH (08:35)
[2017-12-21] MEDS: glyBURIDE 2.5 MG TAB PO SCH (08:35)
[2017-12-21] MEDS: CARVEDILOL 12.5 MG TAB PO SCH ×2 (08:35→21:32)
[2017-12-21] MEDS: levoFLOXacin 250 MG TAB PO SCH (08:36)
[2017-12-21] MEDS: ASPIRIN EC 81 MG TAB PO SCH (08:36)
[2017-12-21] MEDS: NITROGLYCERIN 0.4 MG/HR (10 MG) PATCH TD SCH (08:37)
[2017-12-21] MEDS ORDERED: GLYBURIDE 5 MG PO SCH (09:00)
--- NOTE | 2017-12-21 14:37 | PN ---
Subjective: The patient currently doing well. She is sitting in a chair. No chest pain. No abdomi nal pain. No fever or chills overnight. Appetite is good. Physical Examination: Vital Signs: Blood pressure is 147/63, respiratory rate 16, pulse 67, temperature 98.1, saturating 9 7% on room air. General: She is alert and oriented x3. Does not look in any distress. HEENT: Atraumatic, normocephalic. PERRLA. Oral mucosa is moist. Neck: Supple. No JVD. No carotid bruits. Chest: Clear to auscultation. Good air entry. Heart: Regular rate and rhythm. S1, S2 normal. No gallop or murmur. Abdomen: Soft, nontender. No masses. No hepatosplenomegaly. Positive bowel sounds. Extremities: No clubbing, cyanosis, or edema. No calf tenderness. Neurologic: Grossly intact. Cranial nerve exam 2 through 12 intact. Normal sensation. Normal refl exes. Normal muscle strength. Laboratory Data: Today showed CBC within normal except for hemoglobin at 10. CMP within normal exce pt for BUN of 25, creatinine 1.07. Glucose around 148. Assessment And Plan: 1.Acute renal failure. Much better. Nephrology following. Advised patient to increase her oral in take. 2.Elevated liver enzymes, mild. The patient has hepatitis C, and she will need to follow up with GI as outpatient. 3.Urinary tract infection. Urine was positive for enterococci faecalis and Citrobacter, and they david th are sensitive to levofloxacin. Continue antibiotic with Levaquin 250 mg orally. I switched from IV yesterday in preparation for discharge. 4.Hypertension, well controlled. Blood pressure 133/60. Continue Coreg, p.r.n. clonidine. 5.Hyperlipidemia. The patient on statin at 20 mg, lower dose than her usual due to elevation in her LFTs. 6.Deep vein thrombosis prophylaxis on Lovenox. 7.Diabetes mellitus. Continue patient on glyburide 5 mg once a day. Insulin sliding scale. Her gl ucose is in the range of 148 to 105. 8.Syncopal episode. Most likely secondary to over medication with blood pressure medication. MRI w as negative. EEG was negative. 9.Hypothyroidism. Continue on Synthroid. 10.Discharge plan in the a.m. hopefully if patient gets admitted to the shelter. If not, then we may need to arrange for discharge with home health with PT/OT. VEENA/FIONA Voice ID: [id number] Report ID: [id number]
[2017-12-21] MEDS: ATORVASTATIN 20 MG TAB PO SCH (21:32)
--- NOTE | 2017-12-21 23:35 | PN ---
Date of Progress Note: 12/21/2017 Subjective: Acute on chronic kidney injury. History Of Present Illness: Acute kidney injury with prerenal azotemia, nonoliguric ATN. The patien t is asymptomatic. She denies nausea and vomiting. Objective: General: She is not in acute distress. Lungs: Clear to auscultation bilaterally. Heart: S1, S2. Abdomen: Soft, benign. Extremities: No edema. Hemoglobin 10.0, WBC 4.4, platelet count is 182. Chemistries showed sodium 140, potassium 4.4, chlor heladio 107, CO2 27, BUN 25, creatinine 1.07. Impression And Plan: 1.Acute kidney injury. Renal function somewhat improved. The patient has prerenal azotemia. Elect rolytes stable, within normal limits. Monitor urine output and adjust the hydration as needed. STEVE inhibitor is on hold because of acute kidney injury. 2.Diabetes mellitus. Continue insulin per sliding scale. Monitor blood glucose. 3.Acute kidney injury on chronic kidney stage 3. Avoid nonsteroidal anti-inflammatory medication. NOHEMY/FIONA Voice ID: [id number] Report ID: [id number]
[2017-12-22 05:49] LABS: Albumin 3.2 g/dL (3.2-5.5); Phosphorus 3.7 mg/dL (2.5-4.3); Potassium 4.7 mEq/L (3.6-5.0)
[2017-12-22] MEDS: LEVOTHYROXINE SOD 0.05 MG TABLET PO SCH (06:00)
[2017-12-22] MEDS: INSULIN -REGULAR HUMAN 50 UNIT/0.5 ML ML SQ SCH ×2 (07:30→11:30)
[2017-12-22] MEDS: CARVEDILOL 12.5 MG TAB PO SCH (08:51)
[2017-12-22] MEDS: glyBURIDE 2.5 MG TAB PO SCH (08:51)
[2017-12-22] MEDS: ASPIRIN EC 81 MG TAB PO SCH (08:51)
[2017-12-22] MEDS: levoFLOXacin 250 MG TAB PO SCH (08:51)
[2017-12-22] MEDS: NITROGLYCERIN 0.4 MG/HR (10 MG) PATCH TD SCH (08:52)
[2017-12-22] MEDS ORDERED: ENOXAPARIN 40 MG/0.4 ML SQ SCH (09:00)
--- NOTE | 2017-12-22 11:48 | PN ---
Subjective: She is currently lying in bed. She is comfortable. She had no issues overnight. Objective: Vital Signs: Showed blood pressure is 137/64, respiratory rate 16, pulse 80, temperature 98.2. General: The patient is alert, oriented x3. Does not look in any distress. HEENT: Atraumatic, normocephalic. PERRLA. Oral mucosa is moist. Neck: Supple. No JVD. Chest: Clear to auscultation. Good air entry. Heart: Regular rate and rhythm. S1, S2 normal. No gallop or murmur. Abdomen: Soft, nontender. No masses. No hepatosplenomegaly. Positive bowel sounds. Extremities: No clubbing, cyanosis, or edema. No calf tenderness. Neurologic: Grossly intact. Cranial nerve exam 2 through 12 intact. Normal sensation. Normal refl exes. Normal muscle strength. Laboratory Data: Labs today none except for CMP which showed BUN of 29, creatinine 1.15, glucose 122 . Assessment And Plan: 1.Acute renal failure, resolved. Creatinine back to normal. GFR of 45. The patient had urinary tr act infection. Culture showed which is sensitive to Levaquin. I will switch her from IV to oral Levaquin today. 2.Elevated liver enzymes. The patient had hepatitis C. She will need to see stripping and booking machine operator as outpatient. 3.Hypertension, well controlled. She was on losartan and hydrochlorothiazide, which were stopped. Blood pressure is still doing very well on Coreg 12.5 mg twice a day. 4.Deep venous thrombosis prophylaxis, on Lovenox. Reduced dose due to renal insufficiency. 5.Hypothyroidism. She is on Synthroid. 6.Syncopal episode most likely secondary to low blood pressure vasovagal secondary to multiple medic ations. MRI was negative. EEG was negative. 7.History of hyperlipidemia. The patient is on Zocor 80 mg. We will continue that. 8.History of diabetes mellitus. The patient is on glyburide 5 mg twice a day. We will continue devyn t on insulin sliding scale. 9.History of cerebrovascular accident. 10.[facility]charge to [facility] facility when accepted according to discharge note what we have done until Friday. VEENA/FIONA Voice ID: [id number] Report ID: [id number]
--- NOTE | 2017-12-22 16:13 | P.DS ---
Admission Date: 12/12/17 Discharge Date: 12/22/17 Primary Care Provider: Unknown Disposition: TRANSFER TO INPATIENT REHAB Discharge Condition: GOOD Reason for Admission: fall Consultations: nephrology-Dr. Hair neurology-Dr. Terry Procedures: MRI: No acute finding. EEG: Negative. - Problems (1) Acute kidney injury Onset Date: 11/17/17 Current Visit: Yes Status: Acute (2) Elevated liver enzymes Onset Date: 12/15/17 Current Visit: Yes Status: Acute (3) Essential (primary) hypertension Onset Date: 11/17/17 Current Visit: Yes Status: Chronic (4) Fall Onset Date: 12/15/17 Current Visit: Yes Status: Acute Qualifiers: Encounter type: initial encounter Qualified Code(s): W19.XXXA - Unspecified fall, initial encounter (5) Hyperlipidemia Onset Date: 11/17/17 Current Visit: Yes Status: Chronic Qualifiers: Hyperlipidemia type: unspecified Qualified Code(s): E78.5 - Hyperlipidemia , unspecified (6) Hypothyroidism Onset Date: 11/17/17 Current Visit: Yes Status: Chronic Qualifiers: Hypothyroidism type: unspecified Qualified Code(s): E03.9 - Hypothyroidism , unspecified (7) Syncope Current Visit: Yes Status: Acute Qualifiers: Syncope type: unspecified Qualified Code(s): R55 - Syncope and collapse (8) Type 2 diabetes mellitus without complications Onset Date: 11/17/17 Current Visit: Yes Status: Chronic Qualifiers: 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: without [facility] use Qualified Code(s): E11.9 - Type 2 diabetes mellitus without complications (9) History of CVA (cerebrovascular accident) Onset Date: 11/17/17 Current Visit: No Status: Chronic (10) Chronic renal disease Current Visit: Yes Status: Suspected Qualifiers: Chronic kidney disease stage: stage 3 (moderate) Qualified Code(s): N18.3 - Chronic kidney disease, stage 3 (moderate) (11) Hepatitis C Current Visit: Yes Status: Chronic Qualifiers: Viral hepatitis chronicity: chronic Hepatic coma status: without hepatic coma Qualified Code(s): B18.2 - Chronic viral hepatitis C (12) UTI (urinary tract infection) Current Visit: Yes Status: Acute Qualifiers: Urinary tract infection type: site unspecified Hematuria presence: without hematuria Qualified Code(s): N39.0 - Urinary tract infection, site not specified Brief History of Present Illness: 87-year-old female presented emergency room with syncopal episode. Patient had fallen at home. Medications have been recently adjusted. Patient admitted for further evaluation. Hospital Course: Patient presented with syncope likely related to overmedication. Patient was evaluated by physical therapy. Inpatient rehab was recommended. Evaluation was done by neurology. Medications were adjusted during the course of her stay as medication was likely related. MRI negative for acute stroke. EEG negative. Neurology recommended no further intervention. At discharge, Medication-lisinopril has been discontinued. Carvedilol has been adjusted. Patient we will continue with aspirin 81 mg daily. Patient has hypertension. Medications have been adjusted due to syncopal episode. At discharge she will no longer take lisinopril. Carvedilol has been decreased to 12.5 mg 1 pill twice daily. Patient also will continue with Nitro patch once daily. Recommendation is to maintain blood pressures less 150/80. Further adjustment can be done by her PCP. Patient has diabetes. This remained stable during her stay. Patient will continue with her medication-glyburide 5 mg 1 pill daily. Recommendation is to maintain blood sugars less 140 fasting and less than 200 after meals. Further adjustment can be done by her PCP. Patient has hypothyroidism. Patient will continue with her medication-Levoxyl 50 mcg 1 pill daily. Patient has chronic renal disease. Patient did have some acute on chronic renal insufficiency. Patient seen by and nephrology. Medications were adjusted during his at discharge, Recommendation is to recheck lab-BMP in 1-2 weeks to monitor progress. Recommendations for the patient follow up with Nephrology in 2-4 weeks to monitor her progress. Recommendation to no longer use any nonsteroidal anti-inflammatories. Future medications will need to be renally dosed. Patient was found to have a UTI. Urine culture was positive for Citrobacter and Enterococcus. Patient will continue with Levaquin 250 mg daily. Recommendation is to recheck urine culture after that time to monitor resolution. UTI prevention will need to be enforced. Patient found to have elevated liver function. Hepatitis panel was sent. Patient found to have hepatitis-C. Recommendations for the patient follow up with GI as an outpatient to consider treatment. Patient continue with inpatient rehab. Fall precautions to be enforced. Patient has hyperlipidemia. She will continue with Zocor 80 mg daily. Vital Signs/Physical Exam: Temp Pulse Resp BP Pulse Ox 97.3 F 75 18 153/69 H 100 12/22/17 12:00 12/22/17 12:00 12/22/17 12:00 12/22/17 12:00 12/22/17 12:00 General: Alert, In no apparent distress, Cooperative HEENT: Atraumatic Neck: Supple Respiratory: Clear to auscultation bilaterally, Normal air movement Cardiovascular: Normal pulses, Regular rate/rhythm Gastrointestinal: Normal bowel sounds, Soft and benign, Non-distended, No tenderness, No masses, No rebound, No guarding Musculoskeletal: No erythema, No tenderness, No warmth Integumentary: No tenderness/swelling, No erythema, No warmth, No cyanosis Neurological: Normal speech, Normal strength at 5/5 x4 extr, Normal tone, Normal affect Laboratory Data at Discharge: WBC 4.4 K/uL (4.3-10.9) D 12/20/17 11:54 Hgb 10.0 g/dL (12.0-15.0) L 12/20/17 11:54 Hct 30.0 % (36.0-45.0) L 12/20/17 11:54 Plt Count 182 K/uL (152-406) 12/20/17 11:54 PT 11.0 SECONDS (9.5-12.5) 12/12/17 13:50 INR 0.93 12/12/17 13:50 Sodium 141 mEq/L (135-145) 12/22/17 05:00 Potassium 4.7 mEq/L (3.6-5.0) 12/22/17 05:00 BUN 23 mg/dL (6-20) H 12/22/17 05:00 Creatinine 1.19 mg/dL (0.44-1.00) H 12/22/17 05:00 Glucose 83 mg/dL (65-120) 12/22/17 05:00 Phosphorus 3.7 mg/dL (2.5-4.3) 12/22/17 05:00 Magnesium 2.0 mg/dL (1.8-2.5) 12/22/17 05:00 Total Bilirubin 1.0 mg/dL (0.3-1.2) 12/20/17 11:54 AST 28 IU/L (10-42) 12/20/17 11:54 ALT 36 IU/L (10-60) 12/20/17 11:54 Alkaline Phosphatase 86 IU/L (42-121) 12/20/17 11:54 B-Natriuretic Peptide 333 pg/ml (<=100) H 12/12/17 13:50 Lipase 24 U/L (22-51) 12/12/17 13:50 Home Medications: Aspirin [Aspirin EC 81 MG] 81 mg PO DAILY 12/12/17 Glyburide 5 mg PO DAILY 12/12/17 Levothyroxine [Synthroid*] 0.05 mg PO DAILY 12/12/17 Simvastatin [Zocor] 80 mg PO BEDTIME 12/12/17 Carvedilol [Coreg*] 12.5 mg PO BID #60 tab 12/22/17 Levofloxacin [Levaquin*] 250 mg PO DAILY #3 tab 12/22/17 Nitroglycerin Patch [Transderm-Nitro 0.4MG/Hr Patch*] 1 each TD DAILY #30 patch.td24 12/22/17 New Medications: Carvedilol [Coreg*] 12.5 mg PO BID #60 tab Levofloxacin [Levaquin*] 250 mg PO DAILY #3 tab Nitroglycerin Patch [Transderm-Nitro 0.4MG/Hr Patch*] 1 each TD DAILY #30 patch.td24 Patient Discharge Instructions: 1. Patient will be transferred to inpatient rehab for continued rehabilitation. 2. Patient presented with syncope likely related to overmedication. Medications have been adjusted during the course of her stay. MRI negative for acute stroke. EEG negative. Patient seen and evaluated by neurology. No further intervention recommended. Medication- lisinopril has been discontinued. Carvedilol has been adjusted. Patient continue with aspirin 81 mg daily. 3. Patient has hypertension. Medications have been adjusted due to syncopal episode. At discharge she will no longer take lisinopril. Carvedilol has been decreased to 12.5 mg 1 pill twice daily. Patient also will continue with Nitro patch once daily. Recommendation is to maintain blood pressures less 150/80. Further adjustment can be done by her PCP. 4. Patient has diabetes. Patient will continue with her medication- glyburide 5 mg 1 pill daily. Recommendation is to maintain blood sugars less 140 fasting and less than 200 after meals. Further adjustment can be done by her PCP. 5. Patient has hypothyroidism. Patient will continue with her medication-Levoxyl 50 mcg 1 pill daily. 6. Patient has chronic renal disease. This has remained stable. Recommendation is to recheck lab-BMP in 1-2 weeks to monitor progress. Recommendations for the patient follow up with Nephrology in 2-4 weeks to monitor her progress. Recommendation to no longer use any nonsteroidal anti-inflammatories. Future medications will need to be renally dosed. 7. Patient was found to have a UTI. Patient will continue with Levaquin 250 mg daily. Recommendation is to recheck urine culture after that time to monitor resolution. UTI prevention will need to be enforced. 8. Patient found to have hepatitis-C. Recommendations for the patient follow up with GI as an outpatient to consider treatment. 9. Patient continue with inpatient rehab. Fall precautions to be enforced. 10. Patient has hyperlipidemia. She will continue with Zocor 80 mg daily. Diet: AHA Activity: Fall precautions Time spent managing pt's care (in minutes): 55
--- NOTE | 2017-12-23 01:58 | PN ---
Date of Progress Note: 12/22/2017 Chief Complaint: Acute kidney injury with prerenal azotemia, nonoliguric ATN. Subjective: Renal function is stabilizing. The patient is tolerating p.o. intake. Does not have na usea, vomiting. Review of Systems: Denies nausea, vomiting. Denies abdominal pain. Physical Examination: Lungs: Clear to auscultation bilaterally. Heart: S1, S2. Abdomen: Soft, benign. Extremities: No edema. Laboratory Data: Potassium 4.4, BUN 25, creatinine 1.07. Impression And Plan: 1.Acute kidney injury. Renal function is improving. Monitor electrolytes and urine output. 2.Avoid nonsteroidal anti-inflammatory medication. 3.Hypertension. Blood pressure controlled. 4.Diabetes mellitus. Continue insulin per sliding scale. 5.Anemia, chronic. Hemoglobin is ranging from 10 to 11. Continue to monitor. When hemoglobin is b elow 10, the patient may be a candidate for ATA. NOHEMY/FIONA Voice ID: [id number] Report ID: [id number]
== END 2017-12-22 19:55 | DRG 917 ==
LOC: ER 13:20 → ERHOLD 17:40 → 2ND 19:53
PROVIDERS: ADMIT Internal Medicine; ATTEND Family Medicine
DX: T46.5X1A Poisoning by other antihypertensive drugs, accidental (unintentional), initial encounter (principal); N17.0 Acute kidney failure with tubular necrosis; N39.0 Urinary tract infection, site not specified; I10 Essential (primary) hypertension; E11.9 Type 2 diabetes mellitus without complications; E78.5 Hyperlipidemia, unspecified; E03.9 Hypothyroidism, unspecified; R74.8 Abnormal levels of other serum enzymes; W19.XXXA Unspecified fall, initial encounter; R55 Syncope and collapse; B18.2 Chronic viral hepatitis C; E11.22 Type 2 diabetes mellitus with diabetic chronic kidney disease; I12.9 Hypertensive chronic kidney disease with stage 1 through stage 4 chronic kidney disease, or unspecified chronic kidney disease; N18.3 Chronic kidney disease, stage 3 (moderate); Z86.73 Personal history of transient ischemic attack (TIA), and cerebral infarction without residual deficits
CPT/HCPCS: 36415; 70450; 70544; 70549; 70553; 71045; 72125; 76700; 80048; 80053; 80069; 80074; 80076; 81003; 81015; 82533; 82550; 82570; 82962; 83036; 83690; 83735; 83880; 83970; 84100; 84156; 84443; 84484; 85025; 85610; 87077; 87086; 87088; 87186; 87522; 93005; 95816; 96361; 96374; 97163; 99285; A9577; J0360; J1650; J2405; J3475; J7030

== ENCOUNTER 2018-05-18 15:56 | Inpatient (IN) | payer OTHER ==
[2018-05-18] MEDS ORDERED: NA CHLORIDE 0.9% 1,000 ML ONE (16:23)
[2018-05-18] MEDS ORDERED: Nicardipine/NS 25 MG/250 ML KIT IV ONE ×2 (16:25→22:02)
--- NOTE | 2018-05-18 16:42 | RAD REPORT ---
EXAM DESCRIPTION: RAD - Chest Single View - 05/18/2018 4:35 pm CLINICAL HISTORY: COUGH Chest pain. COMPARISON: Chest Single View dated 12/12/2017; Chest Single View dated 11/15/2017; Chest Single View da kit 11/25/2016; CHEST PA AND LAT 2 VIEW dated 01/07/2013 FINDINGS: Portable technique limits examination quality. Lungs are mildly emphysematous but grossly clear of acute infiltrate. The heart is normal in size. No displaced fractures. IMPRESSION: COPD.
[2018-05-18 16:43] LABS: Absolute Lymphocytes (CBC) 1.4 K/uL (0.7-4.9); Absolute Monocytes 0.5 K/uL (0.1-1.3); Absolute Neutrophil 2.7 K/uL (1.8-8.0); Basophils % 0.5 % (0-1.3); Eosinophils % 2.7 % (0-4.4); Hematocrit 32.1 % (36.0-45.0); Lymphocytes % 29.8 % (15.3-44.8); MCH 31.8 pg (27.0-35.0); MCV 92.8 fL (80-100); MPV 8.1 fL (7.6-11.3); Monocytes % 9.9 % (3.3-12.3); RBC Red Blood Cell Count 3.46 M/uL (3.86-4.86)
[2018-05-18 16:44] LABS: Protime INR 1.05
[2018-05-18 17:01] LABS: ALT/SGPT 25 U/L (12-78); AST/SGOT 26 U/L (15-37); Albumin 3.5 g/dL (3.4-5.0); Alkaline Phosphatase 62 U/L (45-117); BUN Blood Urea Nitrogen 22 mg/dL (7-18); Bicarbonate 28 mmol/L (21-32); Bilirubin Direct 0.3 mg/dL (0-0.2); Bilirubin Total 1.1 mg/dL (0.2-1.0); Glucose Level 116 mg/dL (74-106); Lipase 163 U/L (73-393); Magnesium 2.2 mg/dL (1.8-2.4); NT PRO-BNP 2242 pg/mL (<450); Potassium 3.8 mmol/L (3.5-5.1); Protein, Total 6.5 g/dL (6.4-8.2); Sodium Level 145 mmol/L (136-145); Troponin (Emerg Dept Use Only) < 0.02 ng/mL (0.0-0.045)
--- NOTE | 2018-05-18 17:04 | ER ---
Nurse's Notes [facility] Name: Josselyn Pereira Age: 87 yrs Sex: Female : 1930 Arrival Date: 05/18/2018 Time: 15:57 Bed 15 Private MD: Diagnosis: Essential (primary) hypertension;Weakness Presentation: 05/18 15:58 Presenting complaint: Patient states: "my blood pressure monitor said my blood pressure aa5 was over 200 today". Pt states "I just feel a little unsteady today". Pt denies headache. Pt states "they took me off lisinopril last time I saw the doctor but I take Carvedilol". 15:58 Transition of care: patient was not received from another setting of care. Onset of aa5 symptoms was May 18, 2018. Risk Assessment: Do you want to hurt yourself or someone else? Patient reports no desire to harm self or others. Initial Sepsis Screen: Does the patient meet any 2 criteria? No. Patient's initial sepsis screen is negative. Does the patient have a suspected source of infection? No. Patient's initial sepsis screen is negative. Care prior to arrival: None. 15:58 Method Of Arrival: Ambulatory aa5 15:58 Acuity: SHAGGY 2 aa5 Triage Assessment: 16:38 General: Appears in no apparent distress. Pain: Denies pain. tw2 Historical: - Allergies: 16:00 amlodipine; aa5 16:00 HYDRALAZINE; aa5 16:00 Isosorbide Mononitrate; aa5 - Home Meds: 16:12 aspirin 81 mg Oral TbEC 1 tab once daily [Active]; carvedilol 25 mg Oral tab 1 tab 2 tw2 times per day [Active]; glipizide 5 mg Oral tab 0.5 tab once daily [Active]; hydralazine 25 mg Oral tab 1 tab once daily [Active]; lisinopril 40 mg Oral tab 0.5 tab twice daily [Active]; simvastatin 80 mg Oral tab 80 mg daily [Active]; Synthroid 50 mcg Oral tab once daily [Active]; - PMHx: 16:00 CVA; Diabetes - NIDDM; Hypertension; Hypothyroidism; aa5 - PSHx: 16:00 Cholecystectomy; aa5 - Immunization history:: Adult Immunizations up to date. - Social history:: Smoking status: Patient/guardian denies using tobacco. - Ebola Screening: : No symptoms or risks identified at this time. - Family history:: not pertinent. Screenin:11 Abuse screen: Denies threats or abuse. Nutritional screening: On. Tuberculosis tw2 screening: No symptoms or risk factors identified. Fall Risk None identified. Assessment: 16:13 General: Appears in no apparent distress. Behavior is calm, cooperative, appropriate tw2 for age. 16:13 Pain: Denies pain. Neuro: Level of Consciousness is awake, alert, obeys commands, tw2 Oriented to person, place, time, situation. Cardiovascular: Denies chest pain, shortness of breath, Heart tones S1 S2 Capillary refill < 3 seconds Patient's skin is warm and dry. Respiratory: Airway is patent Respiratory effort is even, unlabored, Respiratory pattern is regular, symmetrical, Breath sounds are clear bilaterally. GI: No signs and/or symptoms were reported involving the gastrointestinal system. Abdomen is flat, Bowel sounds present X 4 quads. : No signs and/or symptoms were reported regarding the genitourinary system. EENT: No signs and/or symptoms were reported regarding the EENT system. Derm: Skin is fragile, is thin, Skin is dry, Skin is pale. Musculoskeletal: Range of motion: intact in all extremities. 17:10 Reassessment: transported pt to Ct via stretcher, on BP and cardiac monitoring, BP at iw [address], Cardene drip increased to 5 mg /hr at 1710. 17:41 Reassessment: Patient appears in no apparent distress at this time. Patient and/or rv family updated on plan of care and expected duration. Pain level reassessed. Patient is alert, oriented x 3, equal unlabored respirations, skin warm/dry/pink. Vital Signs: 15:59 BP 245 / 68 RA; Pulse 66; Resp 16 S; Temp 98.0(TE); Pulse Ox 99% on R/A; Weight 62.14 aa5 kg (R); Height 5 ft. 8 in. (172.72 cm) (R); Pain 0/10; 16:01 BP 260 / 66 LA; aa5 16:09 BP 232 / 63; Pulse 58; Resp 17; Pulse Ox 97% on R/A; tw2 16:35 BP 216 / 59; Pulse 65; Resp 19; Pulse Ox 96% on R/A; tw2 16:38 BP 199 / 64; Pulse 69; Resp 17; Pulse Ox 96% on R/A; tw2 16:45 BP 180 / 62; Pulse 63; Resp 18; Pulse Ox 97% on R/A; tw2 16:50 BP 182 / 62; Pulse 64; Resp 17; tw2 16:55 BP 190 / 66; Pulse 67; Resp 17; Pulse Ox 95% on R/A; tw2 17:00 BP 193 / 65; Pulse 67; Resp 17; Pulse Ox 95% on R/A; tw2 17:20 BP 174 / 56; rv 17:38 BP 179 / 56; Pulse 73; Resp 20; Pulse Ox 95% on R/A; rv 17:45 BP 154 / 54; Pulse 75; Resp 19; Pulse Ox 95% on R/A; rv 18:00 BP 160 / 50; Pulse 76; Resp 20; Pulse Ox 95% on R/A; rv 15:59 Body Mass Index 20.83 (62.14 kg, 172.72 cm) aa5 16:09 provider notified. tw2 ED Course: 15:57 Patient arrived in ED. aa5 15:59 Arm band placed on Patient placed in an exam room, on a stretcher. aa5 16:00 Placed in gown. Bed in low position. Side rails up X2. Adult w/ patient. Cardiac tw2 monitor on. Pulse ox on. NIBP on. 16:07 Triage completed. aa5 16:09 Genesis Villalba RN is Primary Nurse. tw2 16:09 Santos Brito MD is Attending Physician. fan 16:20 Inserted saline lock: 22 gauge in right antecubital area, using aseptic technique. rv Blood collected. 16:20 Urine collected: clean catch specimen, clear. rv 16:30 Radiology exam delayed due to per nurse Genesis Villalba, will call when pt BP is under mw3 control, needs meds for right now. 16:36 XRAY Chest (1 view) In Process Unspecified. EDMS 16:45 EKG done, by data technician. reviewed by Santos Brito MD. 3 17:02 Matthew Gardiner MD is Hospitalizing Provider. fan 17:[address] with TAYLOR Richard on monitor and tech Ton, director of strategic communications at this time. tw2 17:13 Report given to TAYLOR Colon. tw2 17:15 CT Head Brain wo Cont In Process Unspecified. EDMS 18:51 No provider procedures requiring assistance completed. Patient admitted, IV remains in rv place. intact. Administered Medications: 16:25 Drug: NS 0.9% 1000 ml Route: IV; Rate: 75 ml/hr; Site: right antecubital; tw2 18:50 Follow up: IV Status: Infusion continued upon admission rv 16:30 Drug: Cardene 5 mg/hr Route: IV; Rate: per protocol; Site: right antecubital; tw2 16:40 Follow up: Rate change 2.5 mg/hr; per Dr. Brito at bedside at this time. tw2 17:20 Follow up: BP 174 / 56; Rate change 5 mg/hr rv 18:51 Follow up: IV Status: Infusion continued upon admission rv Intake: Outcome: 17:03 Decision to Hospitalize by Provider. fan 18:51 Admitted to ICU accompanied by nurse, via stretcher, room 7, on monitor, with chart, rv Report called to DARLING 18:51 Condition: stable 18:51 Instructed on the need for admit. 18:53 Patient left the ED. rv Signatures: Dispatcher [employer] Santos Aguilar MD MD cha Williams, Irene, TAYLOR VAZQUEZ Adrianne Nguyễn RN RN aa5 Genesis Villalba RN RN tw2 Kirti Doss 3 Dana Kent 3 Tay Quintero, TAYLOR RN rv Corrections: (The following items were deleted from the chart) 16:06 15:59 BP 245 / 68 L Arm; Pulse 66bpm; Resp 16bpm; Spontaneous; Pulse Ox 99% RA; Temp aa5 98.0F Temporal; 62.14 kg Reported; Height 5 ft. 8 in. Reported; BMI: 20.8; Pain 0/10; aa5 16:07 15:58 Presenting complaint: Patient states: "my blood pressure monitor said my blood aa5 pressure was over 200 today". Pt states "I just feel a little unsteady today". Pt denies headache. Pt states "they took me off lisinopril last time I saw the doctor" aa5 16:10 16:09 BP 232 / 63; Pulse 58bpm; Resp 17bpm; Pulse Ox 97% RA; tw2 tw2
--- NOTE | 2018-05-18 17:05 | EDPHYS ---
Physician Documentation [facility] Name: Josselyn Pereira Age: 87 yrs Sex: Female : 1930 Arrival Date: 05/18/2018 Time: 15:57 Bed 15 Private MD: ED Physician Santos Brito HPI: 05/18 17:00 This 87 yrs old Female presents to ER via Ambulatory with complaints of High fan Blood Pressure. 17:00 The patient has elevated blood pressure and discovered this at home, with a home fan device. Onset: The symptoms/episode began/occurred 3 day(s) ago. Modifying factors: The symptoms are aggravated by activity, The symptoms are alleviated by remaining still. Associated signs and symptoms: Pertinent positives: weakness. Severity of symptoms: At its worst the blood pressure was moderate, severe, in the emergency department the blood pressure is unchanged. The patient has experienced similar episodes in the past, several times. Historical: - Allergies: 16:00 amlodipine; aa5 16:00 HYDRALAZINE; aa5 16:00 Isosorbide Mononitrate; aa5 - Home Meds: 16:12 aspirin 81 mg Oral TbEC 1 tab once daily [Active]; carvedilol 25 mg Oral tab 1 tab 2 tw2 times per day [Active]; glipizide 5 mg Oral tab 0.5 tab once daily [Active]; hydralazine 25 mg Oral tab 1 tab once daily [Active]; lisinopril 40 mg Oral tab 0.5 tab twice daily [Active]; simvastatin 80 mg Oral tab 80 mg daily [Active]; Synthroid 50 mcg Oral tab once daily [Active]; - PMHx: 16:00 CVA; Diabetes - NIDDM; Hypertension; Hypothyroidism; aa5 - PSHx: 16:00 Cholecystectomy; aa5 - Immunization history:: Adult Immunizations up to date. - Social history:: Smoking status: Patient/guardian denies using tobacco. - Ebola Screening: : No symptoms or risks identified at this time. - Family history:: not pertinent. ROS: 17:00 Constitutional: Negative for fever, chills, and weight loss, Eyes: Negative for injury, fan pain, redness, and discharge, ENT: Negative for injury, pain, and discharge, Neck: Negative for injury, pain, and swelling, Cardiovascular: Negative for chest pain, palpitations, and edema, Respiratory: Negative for shortness of breath, cough, wheezing, and pleuritic chest pain, Abdomen/GI: Negative for abdominal pain, nausea, vomiting, diarrhea, and constipation, Back: Negative for injury and pain, : Negative for injury, bleeding, discharge, and swelling, MS/Extremity: Negative for injury and deformity, Skin: Negative for injury, rash, and discoloration, Psych: Negative for depression, anxiety, suicide ideation, homicidal ideation, and hallucinations, Allergy/Immunology: Negative for hives, rash, and allergies, Endocrine: Negative for neck swelling, polydipsia, polyuria, polyphagia, and marked weight changes, Hematologic/Lymphatic: Negative for swollen nodes, abnormal bleeding, and unusual bruising. 17:00 Neuro: Positive for dizziness, weakness. Exam: 17:00 Constitutional: This is a well developed, well nourished patient who is awake, alert, fan and in no acute distress. Head/Face: Normocephalic, atraumatic. Eyes: Pupils equal round and reactive to light, extra-ocular motions intact. Lids and lashes normal. Conjunctiva and sclera are non-icteric and not injected. Cornea within normal limits. Periorbital areas with no swelling, redness, or edema. ENT: Nares patent. No nasal discharge, no septal abnormalities noted. Tympanic membranes are normal and external auditory canals are clear. Oropharynx with no redness, swelling, or masses, exudates, or evidence of obstruction, uvula midline. Mucous membranes moist. Neck: Trachea midline, no thyromegaly or masses palpated, and no cervical lymphadenopathy. Supple, full range of motion without nuchal rigidity, or vertebral point tenderness. No Meningismus. Chest/axilla: Normal chest wall appearance and motion. Nontender with no deformity. No lesions are appreciated. Cardiovascular: Regular rate and rhythm with a normal S1 and S2. No gallops, murmurs, or rubs. Normal PMI, no JVD. No pulse deficits. Respiratory: Lungs have equal breath sounds bilaterally, clear to auscultation and percussion. No rales, rhonchi or wheezes noted. No increased work of breathing, no retractions or nasal flaring. Abdomen/GI: Soft, non-tender, with normal bowel sounds. No distension or tympany. No guarding or rebound. No evidence of tenderness throughout. Back: No spinal tenderness. No costovertebral tenderness. Full range of motion. Skin: Warm, dry with normal turgor. Normal color with no rashes, no lesions, and no evidence of cellulitis. MS/ Extremity: Pulses equal, no cyanosis. Neurovascular intact. Full, normal range of motion. Neuro: Awake and alert, GCS 15, oriented to person, place, time, and situation. Cranial nerves II-XII grossly intact. Motor strength 5/5 in all extremities. Sensory grossly intact. Cerebellar exam normal. Normal gait. Psych: Awake, alert, with orientation to person, place and time. Behavior, mood, and affect are within normal limits. Vital Signs: 15:59 BP 245 / 68 RA; Pulse 66; Resp 16 S; Temp 98.0(TE); Pulse Ox 99% on R/A; Weight 62.14 aa5 kg (R); Height 5 ft. 8 in. (172.72 cm) (R); Pain 0/10; 16:01 BP 260 / 66 LA; aa5 16:09 BP 232 / 63; Pulse 58; Resp 17; Pulse Ox 97% on R/A; tw2 16:35 BP 216 / 59; Pulse 65; Resp 19; Pulse Ox 96% on R/A; tw2 16:38 BP 199 / 64; Pulse 69; Resp 17; Pulse Ox 96% on R/A; tw2 16:45 BP 180 / 62; Pulse 63; Resp 18; Pulse Ox 97% on R/A; tw2 16:50 BP 182 / 62; Pulse 64; Resp 17; tw2 16:55 BP 190 / 66; Pulse 67; Resp 17; Pulse Ox 95% on R/A; tw2 17:00 BP 193 / 65; Pulse 67; Resp 17; Pulse Ox 95% on R/A; tw2 17:20 BP 174 / 56; rv 17:38 BP 179 / 56; Pulse 73; Resp 20; Pulse Ox 95% on R/A; rv 17:45 BP 154 / 54; Pulse 75; Resp 19; Pulse Ox 95% on R/A; rv 18:00 BP 160 / 50; Pulse 76; Resp 20; Pulse Ox 95% on R/A; rv 15:59 Body Mass Index 20.83 (62.14 kg, 172.72 cm) aa5 16:09 provider notified. tw2 MDM: 16:09 Patient medically screened. [facility] 17:00 Data reviewed: vital signs, nurses notes, lab test result(s), EKG, radiologic studies, [facility] CT scan, plain films, ultrasound. 05/18 16:12 Order name: Basic Metabolic Panel; Complete Time: 17:10 [facility] 05/18 16:12 Order name: CBC with Diff; Complete Time: 17:00 [facility] 05/18 16:12 Order name: LFT's; Complete Time: 17:10 [facility] 05/18 16:12 Order name: Magnesium; Complete Time: 17:10 [facility] 05/18 16:12 Order name: NT PRO-BNP; Complete Time: 17:10 [facility] 05/18 16:12 Order name: PT-INR; Complete Time: 17:00 [facility] 05/18 16:12 Order name: Troponin (emerg Dept Use Only); Complete Time: 17:10 [facility] 05/18 16:12 Order name: Urine Culture [facility] 05/18 16:13 Order name: Lipase; Complete Time: 17:10 [facility] 05/18 17:18 Order name: CBC with Automated Diff EDMS 05/18 17:18 Order name: CBC with Automated Diff EDMS 05/18 17:18 Order name: Comprehensive Metabolic Panel EDNM 05/18 17:18 Order name: Comprehensive Metabolic Panel EDNM 05/18 17:41 Order name: Urine Dipstick--Ancillary (enter results) 05/18 16:12 Order name: XRAY Chest (1 view); Complete Time: 17:00 [facility] 05/18 16:12 Order name: EKG; Complete Time: 16:13 [facility] 05/18 16:12 Order name: Cardiac monitoring; Complete Time: 16:14 [facility] 05/18 16:12 Order name: EKG - Nurse/Tech; Complete Time: 16:15 [facility] 05/18 16:12 Order name: IV Saline Lock; Complete Time: 16:35 [facility] 05/18 16:12 Order name: Labs collected and sent; Complete Time: 16:35 [facility] 05/18 16:12 Order name: O2 Per Protocol; Complete Time: 16:35 [facility] 05/18 16:12 Order name: O2 Sat Monitoring; Complete Time: 16:35 [facility] 05/18 16:12 Order name: CT Head Brain wo Cont [facility] 05/18 16:46 Order name: US Rp Exam Complete: with doppler [facility] 05/18 17:10 Order name: CONS Physician Consult EDNM 05/18 17:18 Order name: Consistent Carb (ADA) 1800 Zev EDNM 05/18 18:05 Order name: Urine Dipstick-Ancillary EDNM 05/18 18:36 Order name: US EDNM 05/18 16:12 Order name: Urine Dipstick-Ancillary (obtain specimen); Complete Time: 17:42 [facility] Administered Medications: 16:25 Drug: NS 0.9% 1000 ml Route: IV; Rate: 75 ml/hr; Site: right antecubital; tw2 18:50 Follow up: IV Status: Infusion continued upon admission rv 16:30 Drug: Cardene 5 mg/hr Route: IV; Rate: per protocol; Site: right antecubital; tw2 16:40 Follow up: Rate change 2.5 mg/hr; per Dr. Brito at bedside at this time. tw2 17:20 Follow up: BP 174 / 56; Rate change 5 mg/hr rv 18:51 Follow up: IV Status: Infusion continued upon admission rv Disposition: 05/18/18 17:03 Hospitalization ordered by Matthew Gardiner for Inpatient Admission. Preliminary diagnosis are Essential (primary) hypertension, Weakness. - Bed requested for Intensive Care Unit. - Status is Inpatient Admission. rv - Condition is Fair. - Problem is new. - Symptoms have improved. UTI on Admission? No Signatures: Dispatcher [employer] [facility] Monique Small Santos Barker MD MD cha Calderon, Audri, RN RN aa5 Genesis Villalba RN RN tw2 Tay Quintero RN RN rv Corrections: (The following items were deleted from the chart) 17:58 17:03 Hospitalization Ordered by Matthew Gardiner MD for Inpatient Admission. Preliminary bd diagnosis is Essential (primary) hypertension; Weakness. Bed requested for Telemetry/MedSurg (Inpatient). Status is Inpatient Admission. Condition is Fair. Problem is new. Symptoms have improved. UTI on Admission? No. fan 18:53 17:58 05/18/2018 17:03 Hospitalization Ordered by Matthew Gardiner MD for Inpatient rv Admission. Preliminary diagnosis is Essential (primary) hypertension; Weakness. Bed requested for Intensive Care Unit. Status is Inpatient Admission. Condition is Fair. Problem is new. Symptoms have improved. UTI on Admission? No. bd
[2018-05-18] MEDS ORDERED: ONDANSETRON 4 MG/2 ML VIAL IV PRN (17:14)
[2018-05-18] MEDS ORDERED: ACETAMINOPHEN 500 MG TAB PO PRN (17:14)
[2018-05-18] MEDS ORDERED: Nicardipine in Saline, Iso-Osm 20 MG/200 ML IV.SOLN. IV PRN (17:14)
--- NOTE | 2018-05-18 17:25 | RAD REPORT ---
EXAM DESCRIPTION: CT - Head Brain Wo Cont - 05/18/2018 5:15 pm CLINICAL HISTORY: DIZZINESS Hypertension, headache and syncope. COMPARISON: HEAD BRAIN W O CONTRAST dated 01/07/2013; HEAD BRAIN W O CONTRAST dated 08/11/2010; Head C Spine Mpr Wo Con dated 12/12/2017 TECHNIQUE: All CT scans are performed using dose optimization technique as appropriate and may inclu de automated exposure control or mA/KV adjustment according to patient size. FINDINGS: No intracranial hemorrhage, hydrocephalus or extra-axial fluid collection.Mild periventric ular and deep white matter chronic microvascular ischemic changes.No areas of brain edema or evidence of midline shift. The paranasal sinuses and mastoids are clear. The calvarium is intact. IMPRESSION: No acute intracranial abnormality.
--- NOTE | 2018-05-18 17:40 | EKG ---
Test Date: 2018-05-18 Test Time: 16:11:58 Career Development Engineer: HAYDEE MEASUREMENT RESULTS: Intervals: Rate: 54 MA: 206 QRSD: 80 QT: 464 QTc: 440 [place]: P: 79 MA: 206 QRS: 17 T: 66 INTERPRETIVE STATEMENTS: Sinus bradycardia Otherwise normal ECG Compared to ECG 12/12/2017 13:39:15 No significant changes Electronically Signed On 05-18-18 17:39:43 CDT by Heber Ortiz
[2018-05-18 18:05] LABS: Urine Blood NEGATIVE (NEG); Urine Glucose NEGATIVE (NEG); Urine Protein NEGATIVE (NEG)
--- NOTE | 2018-05-18 18:35 | RAD REPORT ---
EXAM DESCRIPTION: US - Renal Ultrasound-Complete - 05/18/2018 6:13 pm CLINICAL HISTORY: Abdominal pain, renal injury COMPARISON: Ultrasound December 2017 FINDINGS: The right kidney measures 10.2 x 4.0 x 5.0 cm. The left kidney measures 10.5 x 5.3 x 5.3 cm. Renal cortical thickness and echogenicity are normal. No hydronephrosis or suspicious renal mass. No bladder wall thickening or mass. No intraluminal stone or mass. IMPRESSION: No hydronephrosis or suspicious renal mass. No bladder abnormality seen.
[2018-05-18] MEDS: INSULIN -REGULAR HUMAN 50 UNIT/0.5 ML ML SQ SCH (21:00)
--- NOTE | 2018-05-19 05:39 | HP ---
Date of Admission: 05/18/2018 Primary Care Physician: Dr. Billings. Consultants: Dr. Ortiz, Cardiology. Code Status: Do not resuscitate. No medical power of document review attorney or living will. Daughter at bedside Chief Complaint: Weakness, elevated blood pressure. History Of Present Illness: The patient is an 87-year-old female with past medical history of diabetes, hypertension, hypothyroidism, history of CVA, who comes in with some generalized weakness and shortness of breath along with elevated blood pressure readings over the past 5 days with home systolic in the 200s. The patient denies any chest pain, blurred vision, or headaches. The patient's breathing symptoms are constant, moderate, progressively worsening. The patient came into the ER for further evaluation. Upon arrival, her vital signs showed a blood pressure of 245/68. The patient was started on a Cardene drip with improvement in her blood pressure. She has allergies to multiple antihypertensives including amlodipine, hydralazine, and isosorbide mononitrate. The patient was then referred for admission. When seen in the ER , she was awake, alert, oriented x3, in some mild distress. Past Medical History: Diabetes, hypertension, hypothyroidism, and CVA. Past Surgical History: Cholecystostomy. Allergies: AMLODIPINE CAUSES BLISTERS, HYDRALAZINE NAUSEA AND VOMITING, ISOSORBIDE MONONITRATE ALSO CAUSES BLISTERS. Medications: List reviewed. Family History: Mother had heart disease. Father also had heart disease. Social History: No illicit drug use. No alcohol use or tobacco abuse. Review of Systems: An 11-point system reviewed, negative except as per HPI. Physical Examination: Vital Signs: Temperature 98, heart rate 66, blood pressure 245/68, respirations 16, O2 of 99% on room air. General: Awake, alert, oriented x3, in some mild distress. Elderly female, ill -appearing. HEENT: Normocephalic, atraumatic. PERRLA. EOMI. Dry mucous membranes. Oropharynx is clear. Poor dentition. Conjunctivae anicteric. Neck: Supple. No JVD. Trachea midline. CV: S1, S2. Regular rate and rhythm. Peripheral pulses are present. No murmurs. RESPIRATORY: Clear to auscultation bilaterally. No wheezing. No stridor. No use of accessory muscles. Gastrointestinal: Abdomen is soft, nontender, nondistended. Positive bowel sounds. No guarding or rigidity. Extremities: No clubbing, cyanosis, or edema. No calf tenderness. Neuro: Cranial nerves 2 through 12 intact grossly. No focal neurological deficit. Speech is normal. Sensation intact to light touch skin. Skin: No rashes. Normal skin turgor. Psych: Mood is depressed. Affect is flat. Insight and judgment are good. Laboratory Data: Sodium 145, potassium 3.8, chloride 110, CO2 28, BUN 22, creatinine of 1.2, glucose 116, calcium 8.6, magnesium 2.2. BNP 2242. Troponin less than 0.02. UA is pending. INR 1.05. WBC 4.7, H and H 11 and 32 , platelets 115, neutrophils 57%. Head CT scan shows no acute intracranial abnormality. Chest x-ray shows COPD. Lungs emphysematous, but grossly clear of acute infiltrate. EKG shows rate of 54, sinus bradycardia, otherwise normal EKG; compared to previous EKG, no changes. Assessment: An 87-year-old female with: 1. Hypertensive emergency with systolic over 200s, with some shortness of breath and generalized weakness. The patient does have low GFR with some kidney issues. No chest pain. Troponin is negative. Head CT scan did not show any bleed. The patient has been started on Cardene drip. We will continue in ICU. We will do neuro checks. We will check renal artery ultrasound to rule out renal artery stenosis. We will consult Cardiology. 2. History of cerebrovascular accident. 3. Diabetes mellitus type 2, non-insulin requiring. We will obtain BBGs and continue sliding scale insulin. 4. Hypothyroidism. We will check TSH and continue home dose of replacement therapy. 5. Normocytic normochromic anemia, stable. We will monitor H and H. Plan: Admit the patient to ICU, place as inpatient. EUSEBIO Voice ID: [id number] MTDD
[2018-05-19 05:59] LABS: Absolute Lymphocytes (CBC) 1.4 K/uL (0.7-4.9); Absolute Monocytes 0.7 K/uL (0.1-1.3); Basophils % 0.3 % (0-1.3); Eosinophils % 1.4 % (0-4.4); Lymphocytes % 17.2 % (15.3-44.8); MCV 91.6 fL (80-100); MPV 7.9 fL (7.6-11.3); Monocytes % 8.5 % (3.3-12.3); RBC Red Blood Cell Count 3.93 M/uL (3.86-4.86)
[2018-05-19 06:04] LABS: Albumin 3.5 g/dL (3.4-5.0); Bilirubin Total 1.7 mg/dL (0.2-1.0); Potassium 3.5 mmol/L (3.5-5.1); Protein, Total 6.4 g/dL (6.4-8.2)
[2018-05-19] MEDS: INSULIN -REGULAR HUMAN 50 UNIT/0.5 ML ML SQ SCH ×4 (07:30→20:23)
[2018-05-19] MEDS: NIFEDIPINE XL 90 MG TABLET PO SCH (08:53)
[2018-05-19] MEDS: ASPIRIN EC 81 MG TAB PO SCH (08:54)
[2018-05-19] MEDS: LEVOTHYROXINE SOD 0.05 MG TABLET PO SCH (08:54)
[2018-05-19] MEDS: CARVEDILOL 25 MG TAB PO SCH ×2 (08:54→20:32)
[2018-05-19] MEDS ORDERED: NITROGLYCERIN 0.4 MG/HR (10 MG) PATCH TD SCH (09:00)
[2018-05-19] MEDS: glyBURIDE 2.5 MG TAB PO SCH (09:57)
--- NOTE | 2018-05-19 13:08 | CON ---
Additional Attending Physician: Dr. Gardiner. Chief Complaint: Blood pressure too high. History Of Present Illness: Ms. Pereira has a long history of high blood pressure. She had a stroke in December. She was placed on lisinopril, which seemed to control her blood pressure fairly well, but t hat was stopped because she developed renal insufficiency. Recently, she has been taking carvedilol as the only antihypertensive medicine. She has proved to be intolerant to amlodipine and hydralazine and isosorbide mononitrate. The amlodipine caused blisters to form on the inside parts of her thigh s, so it is at least possible that it was not related to the amlodipine. She is tolerating a Cardene drip without any problems at all. That is keeping her blood pressure around 160 systolic. When she came to the hospital, it was 243. She uses no tobacco. Does not have diabetes. No history of myoc ardial infarction, stents. When she had her stroke, it was all medical therapy, I believe she got tP A and had a minimal neurologic deficit. Physical Examination: General: She is 5 feet 8 inches, 138 pounds, appears to be depressed. She is alert and oriented, no t in distress. Denies any pain. Lungs: Clear. Neck: Carotids no bruit. Heart: Within normal limits. Abdomen: Soft. Extremities: No edema. There is no rash. There is no discoloration, looks like some bruising on th e shins. Her electrocardiogram is within normal limits, although there is sinus bradycardia. Heart rate 54. A CT of the head reveals no abnormality. A chest x-ray looks like COPD. Her most recent blood press ure is 163/47 on a nicardipine drip. Impression: The patient could probably be switched to nifedipine, slow release. We will give it a t ry, try to titrate off the Cardene drip. Continue the carvedilol and see if that works. There are m any other classes of medications we can go to without risking an allergic reaction of some kind. It is possible that a different calcium toya might help as well. Thank you very much for your kind r eferral of Ms. Pereira. I will follow her with you. DENZEL Voice ID: [id number] Report ID: [id number]
--- NOTE | 2018-05-19 19:37 | P.PN ---
Subjective Date of Service: 05/19/18 Chief Complaint: Weakness, elevated blood pressure. Subjective: No new changes, No C/O voiced, Improving Patient seen and examined at bedside. States she is feeling better, Denies any chest pain or shortness of breath at this time. Physical Examination - Vital Signs Temperature: 97.6 F Blood Pressure: 131/43 Pulse: 60 Respirations: 16 Pulse Ox (%): 93 - Physical Exam General: Alert, In no apparent distress HEENT: Atraumatic Neck: JVD not distended Respiratory: Clear to auscultation bilaterally Cardiovascular: Normal pulses, Regular rate/rhythm Gastrointestinal: Normal bowel sounds Musculoskeletal: No clubbing Integumentary: No rashes Neurological: Normal speech Assessment And Plan - Plan An 87-year-old female with: 1. Hypertensive emergency with systolic over 200s with some shortness of breath and generalized weakness: Improving No chest pain. Troponin is negative. Head CT scan did not show any bleed. The patient has been weaned off of the cardene drip. Procardia slow release started. Appreciate cardiology recs. 2. History of cerebrovascular accident: stable at this time. 3. Diabetes mellitus type 2, non-insulin requiring. continue sliding scale insulin. 4. Hypothyroidism. continue home dose of replacement therapy. 5. Normocytic normochromic anemia, stable. No evidence of bleeding; We will continue to monitor H and H. Plan to discharge in: 24 Hours Time Spent Managing PTS Care (In Minutes): 30
[2018-05-19] MEDS ORDERED: ATORVASTATIN 40 MG TAB PO SCH (21:00)
[2018-05-20] MEDS: LEVOTHYROXINE SOD 0.05 MG TABLET PO SCH (05:50)
[2018-05-20] MEDS: INSULIN -REGULAR HUMAN 50 UNIT/0.5 ML ML SQ SCH ×2 (07:30→11:30)
[2018-05-20] MEDS: CARVEDILOL 25 MG TAB PO SCH (08:25)
[2018-05-20] MEDS: NIFEDIPINE XL 90 MG TABLET PO SCH (08:25)
[2018-05-20] MEDS: glyBURIDE 2.5 MG TAB PO SCH (08:25)
[2018-05-20] MEDS: ASPIRIN EC 81 MG TAB PO SCH (08:25)
--- NOTE | 2018-05-20 11:25 | P.DS ---
Admission Date: 05/18/18 Discharge Date: 05/20/18 Disposition: ROUTINE DISCHARGE Discharge Condition: GOOD Reason for Admission: Weakness, elevated blood pressure. Consultations: Dr. 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 The patient denied any chest pain, blurred vision, or headaches. The patient's breathing symptoms are constant, moderate, progressively worsening. The patient came into the ER for further evaluation. Upon arrival, her vital signs showed a blood pressure of 245/68. The patient was started on a Cardene drip with improvement in her blood pressure. She has allergies to multiple antihypertensives including amlodipine, hydralazine, and isosorbide mononitrate. The patient was then admitted to the hospital for further evaluation. Hospital Course: 1. Hypertensive emergency with systolic over 200s, with some shortness of breath and generalized weakness. She was admitted to the ICU. Cardiology was consulted. Troponins were negative. Head CT scan did not show any bleed. The patient was started on Cardene drip, which was eventually weaned off. She was started on Procardia XL 90 mg daily along with her Coreg 25 b.i.d. Her blood pressures normalized after these medication changes, but because of her diastolic blood pressures were low we will decrease her Procardia XL to 60 mg daily. She will be discharged on Procardia XL 60 mg daily and Coreg 25 mg b.i.d. 2. History of cerebrovascular accident. 3. Diabetes mellitus type 2, non-insulin requiring. This is managed on a sliding scale insulin. 4. Hypothyroidism. Home medications were continued. 5. Normocytic normochromic anemia, stable. H and H remained stable throughout the stay. Vital Signs/Physical Exam: Temp Pulse Resp BP Pulse Ox 97.9 F 65 10 L 141/47 H 98 05/20/18 04:00 05/20/18 08:25 05/20/18 05:00 05/20/18 08:25 05/20/18 05:00 General: Alert, In no apparent distress, Oriented x3 HEENT: Atraumatic, PERRLA Neck: JVD not distended Respiratory: Clear to auscultation bilaterally, Normal air movement Cardiovascular: No edema, Normal pulses, Regular rate/rhythm, Normal S1 S2 Capillary refill: <2 Seconds Gastrointestinal: Normal bowel sounds, Soft and benign Musculoskeletal: No clubbing, No swelling Neurological: Normal speech Laboratory Data at Discharge: WBC 8.3 K/uL (4.3-10.9) D 05/19/18 05:30 Hgb 12.6 g/dL (12.0-15.0) 05/19/18 05:30 Hct 36.0 % (36.0-45.0) 05/19/18 05:30 Plt Count 121 K/uL (152-406) L 05/19/18 05:30 PT 12.4 SECONDS (9.5-12.5) 05/18/18 16:20 INR 1.05 05/18/18 16:20 Sodium 143 mmol/L (136-145) 05/19/18 05:30 Potassium 3.5 mmol/L (3.5-5.1) 05/19/18 05:30 BUN 17 mg/dL (7-18) 05/19/18 05:30 Creatinine 1.00 mg/dL (0.55-1.3) 05/19/18 05:30 Glucose 122 mg/dL (74-106) H 05/19/18 05:30 Magnesium 2.2 mg/dL (1.8-2.4) 10/08/18 16:20 Total Bilirubin 1.7 mg/dL (0.2-1.0) H 05/19/18 05:30 AST 25 U/L (15-37) 05/19/18 05:30 ALT 23 U/L (12-78) 05/19/18 05:30 Alkaline Phosphatase 64 U/L (45-117) 05/19/18 05:30 Lipase 163 U/L (73-393) 05/18/18 16:20 Home Medications: Aspirin [Aspirin EC 81 MG] 81 mg PO DAILY 12/12/17 Levothyroxine [Synthroid*] 0.05 mg PO DAILY 12/12/17 Simvastatin [Zocor] 80 mg PO BEDTIME 12/12/17 glyBURIDE [Glyburide] 5 mg PO DAILY 12/12/17 Nitroglycerin Patch [Transderm-Nitro 0.4MG/Hr Patch*] 1 each TD DAILY #30 patch.td24 12/22/17 Carvedilol 25 mg PO BID 05/18/18 Diclofenac Sodium [Voltaren] 100 gm TP QID PRN 05/19/18 Nifedipine Xl [Procardia XL] 60 mg PO DAILY #30 tab 05/20/18 New Medications: Nifedipine Xl [Procardia XL] 60 mg PO DAILY #30 tab Diet: AHA Activity: Fall precautions Time spent managing pt's care (in minutes): 50
== END 2018-05-20 13:10 | disposition home or self-care (01) | DRG 305 ==
LOC: ER 15:56 → ERHOLD 17:06 → 3RD-ICU 18:26
PROVIDERS: ADMIT Family Medicine; ATTEND Family Medicine
DX: I16.1 Hypertensive emergency (principal); E03.9 Hypothyroidism, unspecified; Z86.73 Personal history of transient ischemic attack (TIA), and cerebral infarction without residual deficits; E11.9 Type 2 diabetes mellitus without complications; Z66 Do not resuscitate; D64.9 Anemia, unspecified; I12.9 Hypertensive chronic kidney disease with stage 1 through stage 4 chronic kidney disease, or unspecified chronic kidney disease; E11.22 Type 2 diabetes mellitus with diabetic chronic kidney disease; N18.3 Chronic kidney disease, stage 3 (moderate); Z88.8 Allergy status to other drugs, medicaments and biological substances
CPT/HCPCS: 36415; 70450; 71045; 76770; 80048; 80053; 80076; 81003; 82962; 83690; 83735; 83880; 84484; 85025; 85610; 87077; 87086; 87088; 87186; 93005; 96365; 96366; 99285; J7030

== ENCOUNTER 2018-07-24 20:35 | Emergency (ER) | payer OTHER ==
[2018-07-24 21:41] LABS: Absolute Lymphocytes (CBC) 1.5 K/uL (0.7-4.9); Absolute Monocytes 0.7 K/uL (0.1-1.3); Absolute Neutrophil 3.8 K/uL (1.8-8.0); Basophils % 0.5 % (0-1.3); Eosinophils % 5.5 % (0-4.4); Hematocrit 36.2 % (36.0-45.0); Lymphocytes % 23.6 % (15.3-44.8); MCH 31.8 pg (27.0-35.0); MCV 92.4 fL (80-100); MPV 7.6 fL (7.6-11.3); Monocytes % 10.8 % (3.3-12.3); Protime INR 0.96; RBC Red Blood Cell Count 3.91 M/uL (3.86-4.86)
[2018-07-24 21:41] LABS: Urine Amorphous Sediment 1+ /HPF (NONE SEEN); Urine Bacteria >50 /HPF (<20); Urine Culture Reflex Order REFLEXED; Urine Mucus 2+ /HPF (NONE SEEN)
[2018-07-24 21:42] LABS: Urine Blood TRACE (NEG); Urine Glucose 1+ (NEG); Urine Protein 1+ (NEG); Urine pH 6.5 (5.0-7.0)
[2018-07-24 21:59] LABS: ALT/SGPT 25 U/L (12-78); AST/SGOT 23 U/L (15-37); Albumin 3.5 g/dL (3.4-5.0); Alkaline Phosphatase 77 U/L (45-117); BUN Blood Urea Nitrogen 26 mg/dL (7-18); Bicarbonate 25 mmol/L (21-32); Bilirubin Direct 0.2 mg/dL (0-0.2); Bilirubin Total 0.6 mg/dL (0.2-1.0); Glucose Level 155 mg/dL (74-106); Magnesium 2.2 mg/dL (1.8-2.4); NT PRO-BNP 750 pg/mL (<450); Protein, Total 6.7 g/dL (6.4-8.2); Sodium Level 141 mmol/L (136-145); Troponin (Emerg Dept Use Only) < 0.02 ng/mL (0.0-0.045)
--- NOTE | 2018-07-24 23:06 | EDPHYS ---
Physician Documentation [facility] Name: Josselyn Pereira Age: 87 yrs Sex: Female : 1930 Arrival Date: 07/24/2018 Time: 20:40 Bed 19 Private MD: ED Physician Jesi Echols HPI: 07/24 21:30 This 87 yrs old Female presents to ER via EMS with complaints of Near Syncope.pm1 21:30 The patient has experienced near-syncope, felt faint. Onset: The symptoms/episode pm1 began/occurred 1 month(s) ago. Duration: The patient has had multiple episodes. Associated injury: The patient did not suffer any apparent associated injury. Associated signs and symptoms: Pertinent negatives: abdominal pain, chest pain, diarrhea, headache, numbness, shortness of breath, tingling, vomiting, weakness. Current symptoms: Currently, the patient is not experiencing any symptoms. Patient with the sensation of feeling faint for the past 4-6 weeks since she was discharged from the hospital in May. She has noticed that she feels faint after taking her medications in the morning. Today she noticed that she felt faint more often. She believes that it might be the combination of medications. She is taking the same medications from discharge in May but has not followed up with her PCP for medication reconciliation yet. 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 - Social history:: Smoking status: Patient/guardian denies using tobacco. - Ebola Screening: : No symptoms or risks identified at this time. ROS: 21:30 Constitutional: Negative for fever, chills, and weight loss, Eyes: Negative for injury, pm1 pain, redness, and discharge, ENT: Negative for injury, pain, and discharge, Neck: Negative for injury, pain, and swelling, Cardiovascular: Negative for chest pain, palpitations, and edema, Respiratory: Negative for shortness of breath, cough, wheezing, and pleuritic chest pain, Abdomen/GI: Negative for abdominal pain, nausea, vomiting, diarrhea, and constipation, Back: Negative for injury and pain, : Negative for injury, bleeding, discharge, and swelling, MS/Extremity: Negative for injury and deformity, Skin: Negative for injury, rash, and discoloration. 21:30 Neuro: Positive for near syncope, Negative for headache, numbness, tingling, weakness. Exam: 21:30 Abdomen/GI: Inspection: abdomen appears normal, Bowel sounds: normal, Palpation: pm1 abdomen is soft and non-tender, in all quadrants, mass, is not appreciated, rebound tenderness, is not appreciated. 21:30 Constitutional: This is a well developed, well nourished patient who is awake, alert, and in no acute distress. Head/Face: Normocephalic, atraumatic. Eyes: Pupils equal round and reactive to light, extra-ocular motions intact. Lids and lashes normal. Conjunctiva and sclera are non-icteric and not injected. Cornea within normal limits. Periorbital areas with no swelling, redness, or edema. ENT: Nares patent. No nasal discharge, no septal abnormalities noted. Tympanic membranes are normal and external auditory canals are clear. Oropharynx with no redness, swelling, or masses, exudates, or evidence of obstruction, uvula midline. Mucous membranes moist. Neck: Trachea midline, no thyromegaly or masses palpated, and no cervical lymphadenopathy. Supple, full range of motion without nuchal rigidity, or vertebral point tenderness. No Meningismus. Chest/axilla: Normal chest wall appearance and motion. Nontender with no deformity. No lesions are appreciated. Cardiovascular: Regular rate and rhythm with a normal S1 and S2. No gallops, murmurs, or rubs. Normal PMI, no JVD. No pulse deficits. Respiratory: Lungs have equal breath sounds bilaterally, clear to auscultation and percussion. No rales, rhonchi or wheezes noted. No increased work of breathing, no retractions or nasal flaring. Back: No spinal tenderness. No costovertebral tenderness. Full range of motion. Skin: Warm, dry with normal turgor. Normal color with no rashes, no lesions, and no evidence of cellulitis. MS/ Extremity: Pulses equal, no cyanosis. Neurovascular intact. Full, normal range of motion. 21:30 Neuro: Orientation: is normal, Motor: is normal, moves all fours, Sensation: is normal, no obvious gross deficits. Vital Signs: 20:30 BP 192 / 68; Pulse 99; Resp 18; Temp 97.6(O); Pulse Ox 98% on R/A; Weight 56.7 kg; lp1 Height 5 ft. 8 in. (172.72 cm); Pain 0/10; 20:45 BP 156 / 69; Pulse 93; Resp 20; Pulse Ox 97% on R/A; lp1 22:14 BP 132 / 54; Pulse 78; Resp 16; Pulse Ox 98% on R/A; mt 22:30 BP 122 / 51; Pulse 75; Resp 16; Pulse Ox 97% on R/A; lp1 23:00 BP 126 / 52; Pulse 72; Resp 16; Pulse Ox 97% on R/A; lp1 23:30 BP 127 / 53; Pulse 70; Resp 16; Pulse Ox 97% on R/A; lp1 20:30 Body Mass Index 19.01 (56.70 kg, 172.72 cm) lp1 MDM: 20:47 Patient medically screened. pm1 23:02 Differential Diagnosis: cardiac arrhythmia, cerebrovascular accident, seizure, pm1 transient ischemic attack, Urinary tract infection, delirium, myocardial infarction. 23:03 ED course: [place] Syncope Rule = Patient is in the low-risk group for serious pm1 outcome. 23:04 Data reviewed: vital signs. Data interpreted: Pulse oximetry: on room air is 97 %. pm1 Interpretation: normal. Counseling: I had a detailed discussion with the patient and/or guardian regarding: the historical points, exam findings, and any diagnostic results supporting the discharge/admit diagnosis, lab results, radiology results, the need for outpatient follow up, to return to the emergency department if symptoms worsen or persist or if there are any questions or concerns that arise at home. 07/24 20:56 Order name: Basic Metabolic Panel; Complete Time: 23:02 pm1 07/24 20:56 Order name: CBC with Diff; Complete Time: 21:49 pm1 07/24 20:56 Order name: LFT's; Complete Time: 23:02 pm1 07/24 20:56 Order name: Magnesium; Complete Time: 23:02 pm1 07/24 20:56 Order name: NT PRO-BNP; Complete Time: 23:02 pm1 07/24 20:56 Order name: PT-INR; Complete Time: 21:49 pm1 07/24 20:56 Order name: Troponin (emerg Dept Use Only); Complete Time: 23:02 pm1 07/24 20:56 Order name: XRAY Chest (1 view) pm1 07/24 20:56 Order name: EKG; Complete Time: 20:58 pm1 07/24 20:56 Order name: Cardiac monitoring; Complete Time: 21:03 pm1 07/24 20:56 Order name: Urine Microscopic Only; Complete Time: 21:42 pm1 07/24 21:34 Order name: Urine Dipstick--Ancillary (enter results); Complete Time: 21:42 07/24 21:43 Order name: Urine Culture [facility] 07/24 20:56 Order name: EKG - Nurse/Tech; Complete Time: 21:02 pm1 07/24 20:56 Order name: IV Saline Lock; Complete Time: 21:36 pm1 07/24 20:56 Order name: Labs collected and sent; Complete Time: 21:36 pm1 07/24 20:56 Order name: O2 Per Protocol; Complete Time: 21:03 pm1 07/24 20:56 Order name: O2 Sat Monitoring; Complete Time: 21:03 pm1 07/24 20:56 Order name: Urine Dipstick-Ancillary (obtain specimen); Complete Time: 21:16 pm1 Administered Medications: 23:15 Drug: Rocephin 1 grams Route: IV; Rate: calculated rate; Site: right wrist; lp1 07/25 00:00 Follow up: Response: No adverse reaction; IV Status: Completed infusion; IV Intake: [id number] Disposition: 02:50 Co-signature as Attending Physician, Jesi Echols MD. ma2 Disposition: 07/24/18 23:05 Discharged to Home. Impression: Urinary tract infection, site not specified. - Condition is Stable. - Discharge Instructions: Urinary Tract Infection, Adult. - Prescriptions for Bactrim DS 800- 160 mg Oral Tablet - take 1 tablet by ORAL route every 12 hours for 10 days; 20 tablet. - Medication Reconciliation Form, Thank You Letter, Antibiotic Education form. - Follow up: Emergency Department; When: As needed; Reason: Worsening of condition. Follow up: Private Physician; When: 2 - 3 days; Reason: Recheck today's complaints, Continuance of care, Re-evaluation by your physician. - Problem is new. - Symptoms have improved. Signatures: Dispatcher [employer] Joann Jordan RN RN lp1 Flip Mayes, OUTREACH NURSE OUTREACH NURSE pm1 Jesi Echols, MD COLLINS ma2 Corrections: (The following items were deleted from the chart) 00:12 07/24 23:05 07/24/2018 23:05 Discharged to Home. Impression: Urinary tract infection, lp1 site not specified. Condition is Stable. Forms are Medication Reconciliation Form, Thank You Letter, Antibiotic Education, Prescription Opioid Use. Follow up: Emergency Department; When: As needed; Reason: Worsening of condition. Follow up: Private Physician; When: 2 - 3 days; Reason: Recheck today's complaints, Continuance of care, Re-evaluation by your physician. Problem is new. Symptoms have improved. pm1
--- NOTE | 2018-07-24 23:06 | ER ---
Nurse's Notes [facility] Name: Josselyn Pereira Age: 87 yrs Sex: Female : 1930 Arrival Date: 07/24/2018 Time: 20:40 Bed 19 Private MD: Diagnosis: Urinary tract infection, site not specified Presentation: 07/24 20:51 Presenting complaint: EMS states: Patient has been feeling like she is going to pass lp1 out all day; Has felt this before but today it has been more frequent, states dizziness feeling; Denies any chest pain, nausea, vomiting, shortness of breath. Transition of care: patient was not received from another setting of care. Onset of symptoms was July 24, 2018. Risk Assessment: Do you want to hurt yourself or someone else? Patient reports no desire to harm self or others. Initial Sepsis Screen: Does the patient meet any 2 criteria? No. Patient's initial sepsis screen is negative. Does the patient have a suspected source of infection? No. Patient's initial sepsis screen is negative. Care prior to arrival: Glucose check: 270. 20:51 Method Of Arrival: EMS: [facility] lp1 20:51 Acuity: SHAGGY 3 lp1 Historical: - Allergies: 21:00 amlodipine; lp1 21:00 HYDRALAZINE; lp1 21:00 Isosorbide Mononitrate; lp1 - Home Meds: 21:00 carvedilol 25 mg Oral tab 1 tab 2 times per day [Active]; nifedipine 60 mg Oral TbER 1 lp1 tab once daily [Active]; nitroglycerin 0.4 mg/hr Topical pt24 1 patch once daily [Active]; simvastatin 80 mg Oral tab 1 tab nightly [Active]; aspirin 81 mg Oral TbEC 1 tab once daily [Active]; glyburide 5 mg Oral tab 1 tab once daily [Active]; Synthroid 50 mcg Oral tab once daily [Active]; montelukast 10 mg oral tab 1 tab once daily [Active]; - PMHx: 21:00 CVA; Diabetes - NIDDM; Hypertension; Hypothyroidism; Hyperlipidemia; lp1 - PSHx: 21:00 Hysterectomy; breast surgery; tumor removal; lp1 - Immunization history:: Adult Immunizations up to date. - Social history:: Smoking status: Patient/guardian denies using tobacco. - Ebola Screening: : No symptoms or risks identified at this time. Screenin:02 Abuse screen: Denies threats or abuse. Denies injuries from another. Nutritional lp1 screening: No deficits noted. Tuberculosis screening: No symptoms or risk factors identified. Fall Risk Total Ureña Fall Scale indicates High Risk Score (45 or more points). Fall prevention measures have been instituted. Side Rails Up X 2 As available patient and family educated on Fall Prevention Program and Strategies. Assessment: 21:00 General: Appears in no apparent distress. Behavior is calm, cooperative, appropriate lp1 for age. Pain: Denies pain. Neuro: Level of Consciousness is awake, alert, obeys commands, Oriented to person, place, situation, Manager Office are equal bilaterally Moves all extremities. Full function Speech is normal, Pupils are PERRLA, Reports dizziness, intermittently. Cardiovascular: Denies chest pain, Patient's skin is warm and dry. Rhythm is sinus rhythm. Respiratory: Respiratory effort is even, unlabored, Breath sounds are clear bilaterally. GI: Abdomen is non-distended. : No signs and/or symptoms were reported regarding the genitourinary system. EENT: No signs and/or symptoms were reported regarding the EENT system. Derm: Skin is healthy with good turgor, is thin, Skin is dry, Skin is pink, warm \T\ dry. Musculoskeletal: Circulation, motion, and sensation intact. 22:00 Reassessment: Patient appears in no apparent distress at this time. No changes from lp1 previously documented assessment. Patient and/or family updated on plan of care and expected duration. Pain level reassessed. 23:00 Reassessment: Patient appears in no apparent distress at this time. Patient and/or lp1 family updated on plan of care and expected duration. Pain level reassessed. Patient is alert, oriented x 3, equal unlabored respirations, skin warm/dry/pink. Provider at bedside discussing results with patient. 23:36 Reassessment: Patient aware of pending discharge; observing after medication lp1 administration. 07/25 00:01 Reassessment: Patient appears in no apparent distress at this time. Patient states lp1 feeling better. Vital Signs: 07/24 20:30 BP 192 / 68; Pulse 99; Resp 18; Temp 97.6(O); Pulse Ox 98% on R/A; Weight 56.7 kg; lp1 Height 5 ft. 8 in. (172.72 cm); Pain 0/10; 20:45 BP 156 / 69; Pulse 93; Resp 20; Pulse Ox 97% on R/A; lp1 22:14 BP 132 / 54; Pulse 78; Resp 16; Pulse Ox 98% on R/A; mt 22:30 BP 122 / 51; Pulse 75; Resp 16; Pulse Ox 97% on R/A; lp1 23:00 BP 126 / 52; Pulse 72; Resp 16; Pulse Ox 97% on R/A; lp1 23:30 BP 127 / 53; Pulse 70; Resp 16; Pulse Ox 97% on R/A; lp1 20:30 Body Mass Index 19.01 (56.70 kg, 172.72 cm) lp1 ED Course: 20:40 Patient arrived in ED. fc 20:47 Flip Mayes NP is PHCP. pm1 20:47 Jesi Echols MD is Attending Physician. pm1 20:51 Joann Shaw RN is Primary Nurse. lp1 20:55 Triage completed. lp1 20:55 Arm band placed on right wrist. lp1 20:55 EKG done, by ED staff, reviewed by Flip Mayes NP. lp1 21:02 Patient has correct armband on for positive identification. Placed in gown. Bed in low lp1 position. Call light in reach. Side rails up X2. monitoring coordinator on. Pulse ox on. NIBP on. 21:16 Straight cath inserted, using sterile technique, 16 Fr. Specimen obtained. Returned mt cloudy urine. Patient tolerated well. 21:30 Missed attempt(s): 22 gauge in right antecubital area. Inserted saline lock: 22 gauge lp1 in right wrist, using aseptic technique. Blood collected. 21:46 XRAY Chest (1 view) In Process Unspecified. EDMS 23:37 No provider procedures requiring assistance completed. lp1 23:59 IV discontinued, No redness/swelling at site. Pressure dressing applied. lp1 Administered Medications: 23:15 Drug: Rocephin 1 grams Route: IV; Rate: calculated rate; Site: right wrist; lp1 07/25 00:00 Follow up: Response: No adverse reaction; IV Status: Completed infusion; IV Intake: [id number] Intake: 00:00 IV: 10ml; Total: 10ml. lp1 Outcome: 07/24 23:05 Discharge ordered by MD. pm1 07/25 00:00 Discharged to home via wheelchair, with friend. lp1 Condition: good Discharge instructions given to patient, friend, Instructed on discharge instructions, follow up and referral plans. medication usage, Demonstrated understanding of instructions, follow-up care, medications, Prescriptions given X 1. 00:12 Patient left the ED. lp1 Signatures: Dispatcher [employer] EDEboni Jose RN RN Joann Shaw RN RN lp1 Flip Mayes, RUTHIE WATER RESOURCE AGENT pm1 Faiza De Leon mt Corrections: (The following items were deleted from the chart) 00:13 00:00 Discharged to home ambulatory, with friend, lp1 lp1
[2018-07-24] MEDS ORDERED: CEFTRIAXONE/SWI 1gm 1 GM/10 ML SYR ONE (23:20)
--- NOTE | 2018-07-25 07:51 | RAD REPORT ---
EXAM DESCRIPTION: RAD - Chest Single View - 07/24/2018 9:45 pm CLINICAL HISTORY: Weakness, near syncope, shortness of breath COMPARISON: May 18 TECHNIQUE: AP portable chest image was obtained 2132 hours . FINDINGS: Scattered fibrotic lung changes present similar to comparison. No failure, infiltrate or s uspicious mass. Large calcified granuloma in the lower right lung field stable from comparison. Heart and vasculature are normal. No measurable pleural effusion and no pneumothorax. No acute bony abnorm ality seen. No acute aortic findings suspected. IMPRESSION: No acute cardiopulmonary process. No significant change from May 18.
--- NOTE | 2018-07-26 06:09 | EKG ---
Test Date: 2018-07-24 Test Time: 20:46:13 Airway Controller: VEENA MEASUREMENT RESULTS: Intervals: Rate: 94 CT: 250 QRSD: 82 QT: 360 QTc: 450 [place]: P: 81 CT: 250 QRS: 35 T: 81 INTERPRETIVE STATEMENTS: Sinus rhythm with 1st degree AV block Anteroseptal infarct, age undetermined Abnormal ECG Compared to ECG 05/18/2018 16:11:58 First degree AV block now present Myocardial infarct finding now present Sinus bradycardia no longer present Electronically Signed On 07-26-18 06:08:29 DENTURE PACKER by Heber Ortiz
== END 2018-07-25 00:12 | disposition home or self-care (01) ==
LOC: ER 20:35
DX: N39.0 Urinary tract infection, site not specified (principal); I10 Essential (primary) hypertension; E11.9 Type 2 diabetes mellitus without complications; E78.5 Hyperlipidemia, unspecified; E03.9 Hypothyroidism, unspecified; Z79.82 Long term (current) use of aspirin; Z88.8 Allergy status to other drugs, medicaments and biological substances
CPT/HCPCS: 36415; 51702; 71045; 80048; 80076; 83735; 83880; 84484; 85025; 85610; 87077; 87086; 87088; 87186; 93005; 96365; 99285; J0696; 81003; 81015

== ENCOUNTER 2018-08-11 08:36 | Emergency (ER) | payer OTHER ==
--- NOTE | 2018-08-11 09:54 | RAD REPORT ---
EXAM DESCRIPTION: CT - [id number] - 08/11/2018 9:28 am CLINICAL HISTORY: Syncope, fall, head and neck injury COMPARISON: CT head and cervical December 2017 TECHNIQUE: Axial 5 mm thick images of the head were obtained. Axial 2 mm thick images of the cervic al spine were obtained with sagittal and coronal reconstruction images generated and reviewed. All CT scans are performed using dose optimization technique as appropriate and may include automated exposure control or mA/KV adjustment according to patient size. FINDINGS: No intracranial hemorrhage, mass, edema or acute intracranial finding. No suspicion for ac seneca infarction. Moderate atrophy and chronic ischemic changes are present. Old basal ganglia infarcti on changes are noted. Intracranial findings are similar to comparison. Mastoid air cells and paranasa l sinuses are clear. No globe or orbit abnormality seen. Small posterior scalp hematoma present. Cervical bodies are normal in height. No AP alignment abnormality. Disc space narrowing involves all levels except C2-3. Prominent disc and endplate degenerative changes are present. Multilevel bony for aminal encroachment seen. No fracture or acute bony abnormality. Central canal detail is inherently l imited. No paraspinal mass or hematoma. IMPRESSION: Atrophy chronic ischemic changes are present similar to comparison. No acute intracrania l finding. Small posterior scalp hematoma. Prominent cervical spine degenerative change similar to comparison. No acute finding.
[2018-08-11 09:56] LABS: Absolute Monocytes 0.5 K/uL (0.1-1.3); Absolute Neutrophil 4.7 K/uL (1.8-8.0); Basophils % 0.6 % (0-1.3); Eosinophils % 1.6 % (0-4.4); Lymphocytes % 27.3 % (15.3-44.8); MPV 7.8 fL (7.6-11.3); Monocytes % 7.3 % (3.3-12.3); RBC Red Blood Cell Count 4.17 M/uL (3.86-4.86)
[2018-08-11 10:10] LABS: Potassium 4.2 mmol/L (3.5-5.1)
[2018-08-11 10:16] LABS: Urine Blood TRACE (NEG); Urine Glucose NEGATIVE (NEG); Urine Protein NEGATIVE (NEG); Urine pH 5.5 (5.0-7.0)
--- NOTE | 2018-08-11 11:05 | EDPHYS ---
Physician Documentation [facility] Name: Josselyn Pereira Age: 87 yrs Sex: Female : 1930 Arrival Date: 08/11/2018 Time: 08:50 Bed 20 Private MD: ED Physician Vazquez Alberto HPI: 08/11 09:17 This 87 yrs old Female presents to ER via EMS with complaints of Dizziness. snw 09:17 The patient presents with dizziness. Onset: The symptoms/episode began/occurred snw gradually, intermittent episodes, today pt became dizzy, fell to floor, and sustained a small lac to occiput. Context: occurred at home, occurred while the patient was standing. Modifying factors: The symptoms are alleviated by nothing, the symptoms are aggravated by nothing. Severity of symptoms: At their worst the symptoms were moderate. Patient's baseline: Neuro: alert and fully oriented, Motor: no deficits, Ambulation: walks without assistance. The patient has experienced similar episodes in the past, but today's symptoms are worse, fell to ground. The patient has been recently seen by a physician: the patient's primary care provider, with similar presenting complaints, and Dr. Ortiz. Historical: - Allergies: 09:02 amlodipine; ss 09:02 HYDRALAZINE; ss 09:02 Isosorbide Mononitrate; ss - PMHx: 09:02 CVA; Diabetes - NIDDM; Hyperlipidemia; Hypertension; Hypothyroidism; ss - PSHx: 09:02 Hysterectomy; breast surgery; tumor removal; ss - Immunization history:: Adult Immunizations up to date. - Social history:: Smoking status: Patient/guardian denies using tobacco. - Ebola Screening: : Patient denies exposure to infectious person Patient denies travel to an Ebola-affected area in the 21 days before illness onset. ROS: 09:16 Constitutional: Negative for fever, chills, and weight loss, Eyes: Negative for injury, snw pain, redness, and discharge, ENT: Negative for injury, pain, and discharge, Neck: Negative for injury, pain, and swelling, Cardiovascular: Negative for chest pain, palpitations, and edema, Respiratory: Negative for shortness of breath, cough, wheezing, and pleuritic chest pain, Abdomen/GI: Negative for abdominal pain, nausea, vomiting, diarrhea, and constipation, Back: Negative for injury and pain, : Negative for injury, bleeding, discharge, and swelling, MS/Extremity: Negative for injury and deformity, Skin: Negative for injury, rash, and discoloration. 09:16 Neuro: Positive for dizziness. Exam: 09:16 Constitutional: This is a well developed, well nourished patient who is awake, alert, snw and in no acute distress. Eyes: Pupils equal round and reactive to light, extra-ocular motions intact. Lids and lashes normal. Conjunctiva and sclera are non-icteric and not injected. Cornea within normal limits. Periorbital areas with no swelling, redness, or edema. ENT: Nares patent. No nasal discharge, no septal abnormalities noted. Tympanic membranes are normal and external auditory canals are clear. Oropharynx with no redness, swelling, or masses, exudates, or evidence of obstruction, uvula midline. Mucous membranes moist. Neck: Trachea midline, no thyromegaly or masses palpated, and no cervical lymphadenopathy. Supple, full range of motion without nuchal rigidity, or vertebral point tenderness. No Meningismus. Chest/axilla: Normal chest wall appearance and motion. Nontender with no deformity. No lesions are appreciated. Cardiovascular: Regular rate and rhythm with a normal S1 and S2. No gallops, murmurs, or rubs. Normal PMI, no JVD. No pulse deficits. Respiratory: Lungs have equal breath sounds bilaterally, clear to auscultation and percussion. No rales, rhonchi or wheezes noted. No increased work of breathing, no retractions or nasal flaring. Abdomen/GI: Soft, non-tender, with normal bowel sounds. No distension or tympany. No guarding or rebound. No evidence of tenderness throughout. Back: No spinal tenderness. No costovertebral tenderness. Full range of motion. Skin: Warm, dry with normal turgor. Normal color with no rashes, no lesions, and no evidence of cellulitis. MS/ Extremity: Pulses equal, no cyanosis. Neurovascular intact. Full, normal range of motion. 09:16 Head/face: Noted is a laceration(s), that is superficial, .5 cm(s), of the left side of the back of head. 09:16 Neuro: Orientation: is normal, Mentation: is normal, Memory: is normal, Cerebellar function: is grossly normal, Motor: is normal, Sensation: is normal, seizure activity, is not displayed by the patient. Vital Signs: 09:02 Resp 16; Weight 63.05 kg; Height 5 ft. 8 in. (172.72 cm); Pain 0/10; ss 09:15 BP 159 / 55; Pulse 85; Resp 14; Pulse Ox 98% ; bp 09:22 BP 197 / 54; Pulse 80; Resp 14; Pulse Ox 100% ; bp 09:45 BP 157 / 52; Pulse 76; Resp 16; Pulse Ox 98% ; bp 10:00 BP 154 / 46; Pulse 78; Resp 14; Pulse Ox 95% ; bp 10:15 BP 156 / 56; Pulse 78; Resp 14; Pulse Ox 95% ; bp 10:30 BP 162 / 55; Pulse 70; Resp 16; Pulse Ox 100% ; bp 09:02 Body Mass Index 21.13 (63.05 kg, 172.72 cm) ss MDM: 08:52 Patient medically screened. snw 09:12 Data reviewed: vital signs, nurses notes. Data interpreted: Pulse oximetry: on room air snw is 99 %. Interpretation: normal. Counseling: I had a detailed discussion with the patient and/or guardian regarding: the historical points, exam findings, and any diagnostic results supporting the discharge/admit diagnosis, lab results. ED course: pt states she was taken off her blood pressure medications at her last hospitalization. Last week Dr. Wong put her on Nicardipine. Dr. Ortiz told her to start taking her medications at night. Pt states she has been having dizzy spells similar to this am for a while and Dr. Ortiz and Dr. Wong are working on resolving those s/s. Today is the first time pt actually fell. . 10:36 Special discussion: Based on the patient's history, exam, and Dx evaluation, there is snw no indication for emergent intervention or inpatient Tx. It is understood by the patient/guardian that if the Sx's persist or worsen they need to return immediately for re-evaluation. Based on the history and exam findings, there is no indication for further emergent testing or inpatient evaluation. I discussed with the patient/guardian the need to see the housing development specialist for further evaluation of the symptoms. I discussed with the patient/guardian the need to see the primary care provider for further evaluation of the symptoms. Orders to place Holter to see about arrhythmia, pt states she just turned in Holter yest for Dr. Ortiz.. 08/11 09:10 Order name: CBC with Diff; Complete Time: 10:09 snw 08/11 09:10 Order name: Chem 7; Complete Time: 10:10 snw 08/11 08:55 Order name: CT Head C Spine; Complete Time: 09:55 snw 08/11 09:10 Order name: EKG; Complete Time: 09:11 snw 08/11 09:21 Order name: Troponin (emerg Dept Use Only); Complete Time: 10:21 snw 08/11 10:02 Order name: Urine Dipstick--Ancillary (enter results); Complete Time: 10:21 eb 08/11 09:10 Order name: Wound Care; Complete Time: 10:45 snw 08/11 09:10 Order name: EKG - Nurse/Tech; Complete Time: 09:14 snw 08/11 09:44 Order name: Recheck B/P: q 15 min; Complete Time: 10:45 snw Administered Medications: No medications were administered Disposition: 16:01 Co-signature as Attending Physician, Vazquez Alberto MD I agree with the assessment and kdr plan of care. Disposition: 08/11/18 11:04 Discharged to Home. Impression: Syncope and collapse, Contusion of scalp, Unspecified injury of head. - Condition is Stable. - Discharge Instructions: Head Injury, Adult, Hypertension, Syncope, Electrophysiology Study. - Medication Reconciliation Form, Thank You Letter, Antibiotic Education, Prescription Opioid Use form. - Follow up: Private Physician; When: Tomorrow; Reason: Recheck today's complaints, Continuance of care, Re-evaluation by your physician. Follow up: Emergency Department; When: As needed; Reason: Worsening of condition. - Notes: Please follow up with Dr. Wong and Dr. Ortiz tomorrow. Please change positions slowly. Signatures: Dispatcher [employer] EDMS Vazquez Alberto MD MD kdr Therrien, Shelly, PAYROLL CLERK-C PAYROLL CLERK-Csnw Kathy Reese, TAYLOR RN ss Juan Luis Haywood RN RN bp Corrections: (The following items were deleted from the chart) 11:22 11:04 08/11/2018 11:04 Discharged to Home. Impression: Syncope and collapse; Contusion bp of scalp; Unspecified injury of head. Condition is Stable. Discharge Instructions: Hypertension, Syncope, Electrophysiology Study, Head Injury, Adult. Forms are Medication Reconciliation Form, Thank You Letter, Antibiotic Education, Prescription Opioid Use. Follow up: Private Physician; When: Tomorrow; Reason: Recheck today's complaints, Continuance of care, Re-evaluation by your physician. Follow up: Emergency Department; When: As needed; Reason: Worsening of condition. snw
--- NOTE | 2018-08-11 11:05 | ER ---
Nurse's Notes [facility] Name: Josselyn Pereira Age: 87 yrs Sex: Female : 1930 Arrival Date: 08/11/2018 Time: 08:50 Bed 20 Private MD: Diagnosis: Syncope and collapse;Contusion of scalp;Unspecified injury of head Presentation: 08/11 08:53 Presenting complaint: EMS states: Syncopal episode that occurred this morning. Fell ss from standing position onto tile floor, small laceration noted to back of head, bleeding controlled. Pt currently denies pain, but reports she has been having these spells of dizziness for some time and is trying to find out why with the help of her marketing effectiveness manager. Transition of care: patient was not received from another setting of care. Onset of symptoms was August 11, 2018. Risk Assessment: Do you want to hurt yourself or someone else? Patient reports no desire to harm self or others. Initial Sepsis Screen: Does the patient meet any 2 criteria? No. Patient's initial sepsis screen is negative. Does the patient have a suspected source of infection? No. Patient's initial sepsis screen is negative. Care prior to arrival: None. 08:53 Method Of Arrival: EMS: [facility] 08:53 Acuity: SHAGGY 3 ss Triage Assessment: 08:55 General: Appears in no apparent distress. comfortable, Behavior is cooperative, bp appropriate for age, anxious. Historical: - Allergies: 09:02 amlodipine; ss 09:02 HYDRALAZINE; ss 09:02 Isosorbide Mononitrate; ss - PMHx: 09:02 CVA; Diabetes - NIDDM; Hyperlipidemia; Hypertension; Hypothyroidism; ss - PSHx: 09:02 Hysterectomy; breast surgery; tumor removal; ss - Immunization history:: Adult Immunizations up to date. - Social history:: Smoking status: Patient/guardian denies using tobacco. - Ebola Screening: : Patient denies exposure to infectious person Patient denies travel to an Ebola-affected area in the 21 days before illness onset. Screenin:58 Abuse screen: Denies threats or abuse. Denies injuries from another. Nutritional bp screening: No deficits noted. Tuberculosis screening: No symptoms or risk factors identified. Fall Risk Fall in past 12 months (25 points). No secondary diagnosis (0 pts). No IV (0 pts). Ambulatory Aid- None/Bed Rest/Nurse Assist (0 pts). Gait- Normal/Bed Rest/Wheelchair (0 pts) Mental Status- Oriented to own ability (0 pts). Total Ureña Fall Scale indicates Low Risk Score (25-44 pts). Fall prevention measures have been instituted. Side Rails Up X 2 Placed close to Nursing Station Frequent Obs/Assesments occuring Family Present and informed to notify staff if they need to leave bedside As available Patient and Family Educated on Fall Prevention Program and strategies. Assessment: 08:51 General: Appears in no apparent distress. comfortable, Behavior is cooperative, bp appropriate for age, anxious. Pain: Complains of pain in back of head. Neuro: Level of Consciousness is awake, alert, obeys commands, Oriented to person, place, time, situation, Appropriate for age Reports dizziness. Cardiovascular: Rhythm is sinus rhythm. Respiratory: Airway is patent Respiratory effort is even, unlabored, Respiratory pattern is regular, symmetrical. GI: No signs and/or symptoms were reported involving the gastrointestinal system. : No signs and/or symptoms were reported regarding the genitourinary system. EENT: No deficits noted. Derm: Wound noted back of head Wound is ABRASION. Musculoskeletal: Circulation, motion, and sensation intact. Range of motion: intact in all extremities. 09:15 Reassessment: PT C/O CP CORRESPONDING WITH SVT ON MONITOR, PROVIDER NOTIFIED. bp 09:22 Reassessment: PT TO CT WITH PROPOSAL MANAGER WRITER. bp 09:58 Reassessment: ALL CURRENT ORDERS COMPLETED, RESULTS PENDING. bp 10:52 Reassessment: HOLTER MONITOR CANCELLED BY PROVIDER. bp 11:19 Reassessment: PT D/C HOME VIA W/C WITH FAMILY, DX WITH SYNCOPE AND CONTUSION. bp Vital Signs: 09:02 Resp 16; Weight 63.05 kg; Height 5 ft. 8 in. (172.72 cm); Pain 0/10; ss 09:15 BP 159 / 55; Pulse 85; Resp 14; Pulse Ox 98% ; bp 09:22 BP 197 / 54; Pulse 80; Resp 14; Pulse Ox 100% ; bp 09:45 BP 157 / 52; Pulse 76; Resp 16; Pulse Ox 98% ; bp 10:00 BP 154 / 46; Pulse 78; Resp 14; Pulse Ox 95% ; bp 10:15 BP 156 / 56; Pulse 78; Resp 14; Pulse Ox 95% ; bp 10:30 BP 162 / 55; Pulse 70; Resp 16; Pulse Ox 100% ; bp 09:02 Body Mass Index 21.13 (63.05 kg, 172.72 cm) ED Course: 08:50 Patient arrived in ED. bp 08:52 [facility] Epps [facility]-C [facility]. snw 08:52 Vazquez Alberto MD is Attending Physician. snw 08:54 Triage completed. ss 08:58 Patient has correct armband on for positive identification. Placed in gown. Bed in low bp position. Call light in reach. Side rails up X2. Adult w/ patient. 09:02 Arm band placed on right wrist. ss 09:08 EKG done, by computer system technician. reviewed by Kae HERNANDEZ. 3 09:12 Juan Luis aHywood, RN is Primary Nurse. bp 09:23 CT Head C Spine Sent. bp 09:27 CT Head C Spine In Process Unspecified. EDMS 09:38 CT completed. Patient tolerated procedure well. Patient moved to CT via stretcher. vr Patient moved back from CT. 09:44 Inserted saline lock: 22 gauge in right hand, using aseptic technique. bp 10:00 Wound care: to abrasion, located on back of head was cleaned with Hibiclens, Patient bp tolerated well. 11:20 No provider procedures requiring assistance completed. IV discontinued, intact, bp bleeding controlled, No redness/swelling at site. Pressure dressing applied. Administered Medications: No medications were administered Outcome: 11:04 Discharge ordered by MD. snw 11:20 Discharged to home via wheelchair, with family. bp 11:20 Condition: stable 11:20 Discharge instructions given to patient, family, Instructed on discharge instructions, follow up and referral plans. Demonstrated understanding of instructions, follow-up care. 11:22 Patient left the ED. bp Signatures: Dispatcher [employer] EDMS Kae Epps FNP-C FNP-Csnw Smirch, Shelby, RN RN ss Davis, Victoria vr Juan Luis Haywood, RN RN Kirti Ledesma sm3 Corrections: (The following items were deleted from the chart) 09:22 09:21 General: Appears in no apparent distress. comfortable, Behavior is cooperative, bp appropriate for age, anxious, bp
--- NOTE | 2018-08-11 12:43 | EKG ---
Test Date: 2018-08-11 Test Time: 09:00:17 Utilization Management Manager: HAYDEE MEASUREMENT RESULTS: Intervals: Rate: 88 MT: 180 QRSD: 88 QT: 372 QTc: 450 [place]: P: 99 MT: 180 QRS: 17 T: 65 INTERPRETIVE STATEMENTS: Normal sinus rhythm Nonspecific T wave abnormality Abnormal ECG Compared to ECG 07/24/2018 20:46:13 T-wave abnormality now present First degree AV block no longer present Myocardial infarct finding no longer present Electronically Signed On 08-11-18 12:38:10 SET MAKING MACHINE OPERATOR by Heber Ortiz
== END 2018-08-11 11:22 | disposition home or self-care (01) ==
LOC: ER 08:36
DX: S00.03XA Contusion of scalp, initial encounter (principal); S00.80XA Unspecified superficial injury of other part of head, initial encounter; W18.39XA Other fall on same level, initial encounter; Y93.89 Activity, other specified; Y92.009 Unspecified place in unspecified non-institutional (private) residence as the place of occurrence of the external cause; Z88.8 Allergy status to other drugs, medicaments and biological substances; I10 Essential (primary) hypertension
CPT/HCPCS: 36415; 70450; 72125; 80048; 81003; 84484; 85025; 93005; 99285

== ENCOUNTER 2018-08-24 08:40 | Inpatient (IN) | payer OTHER ==
[2018-08-24 11:25] VITALS: BMI 20.9
[2018-08-24 11:55] LABS: Absolute Lymphocytes (CBC) 1.3 K/uL (0.7-4.9); Absolute Monocytes 0.4 K/uL (0.1-1.3); Absolute Neutrophil 3.6 K/uL (1.8-8.0); Basophils % 0.5 % (0-1.3); Eosinophils % 2.1 % (0-4.4); Hematocrit 34.4 % (36.0-45.0); Lymphocytes % 24.5 % (15.3-44.8); MPV 7.6 fL (7.6-11.3); Monocytes % 7.1 % (3.3-12.3); RBC Red Blood Cell Count 3.79 M/uL (3.86-4.86)
--- NOTE | 2018-08-24 11:59 | EKG ---
Test Date: 2018-08-24 Test Time: 10:21:16 Table Lever Operator: HAYDEE MEASUREMENT RESULTS: Intervals: Rate: 73 VT: 198 QRSD: 82 QT: 412 QTc: 453 [place]: P: 87 VT: 198 QRS: 27 T: 67 INTERPRETIVE STATEMENTS: Normal sinus rhythm Nonspecific T wave abnormality Abnormal ECG Compared to ECG 08/11/2018 09:00:17 No significant changes Electronically Signed On 08-24-18 11:57:59 VOLTAGE TESTER by Heber Ortiz
[2018-08-24 12:00] LABS: Potassium 4.1 mmol/L (3.5-5.1); Thyroid Stimulating Hormone 1.64 uIU/mL (0.360-3.740)
[2018-08-24] MEDS ORDERED: HYDRALAZINE HCL 20 MG/ML VIAL IV PRN (15:57)
[2018-08-24 16:21] LABS: Urine Appearance CLEAR; Urine Bilirubin NEGATIVE (NEG); Urine Blood NEGATIVE (NEG); Urine Color YELLOW; Urine Glucose NEGATIVE (NEG); Urine Protein NEGATIVE (NEG); Urine Specific Gravity <=1.005 (1.005-1.030); Urine Urobilinogen 0.2 mg/dL (0.2-1.0)
[2018-08-24 16:23] LABS: Urine Microscopic Reflex ORDER UMIC
[2018-08-24 16:32] LABS: Urine RBC NONE SEEN /HPF (NONE SEEN)
[2018-08-24 16:33] LABS: Urine Bacteria >50 /HPF (<20); Urine Culture Reflex Order REFLEXED
[2018-08-24] MEDS: ROSUVASTATIN 10 MG TAB PO SCH (20:52)
[2018-08-24] MEDS: SOTALOL HCL 80 MG TAB PO SCH (20:52)
[2018-08-24] MEDS: APIXABAN 2.5 MG TABLET PO SCH (20:52)
[2018-08-24] MEDS ORDERED: ATORVASTATIN 10 MG TAB PO SCH (21:00)
--- NOTE | 2018-08-25 03:02 | HP ---
Date of Admission: 08/24/2018 Reason For Admission: Atrial fibrillation. History Of Present Illness: Mrs. Pereira has had an episode of syncope. When we did an evaluation, we found that she was having frequent runs of atrial fibrillation, sometimes very fast. We thought t his was likely the cause of her syncope. As soon as we saw the atrial fibrillation, we started her o n Eliquis 2.5 b.i.d., and she has been tolerating that nicely. She has longstanding hypertension. S he does not have diabetes or any history of vascular surgeries or interventions. No history of strok e or myocardial infarction. She had a syncopal episode about a month ago. Medications: Outpatient medications have been vitamin D3, Crestor 20, Ginkgo biloba, acetaminophen, apixaban, metoprolol, and levothyroxine. Metoprolol was stopped, and we started her on sotalol 80 mg twice a day. Physical Examination: General: The patient seems to be doing fine, not in any distress. Alert, oriented. Lungs: Clear. Neck: No carotid bruit. Heart: Within normal limits. Abdomen: Soft. Extremities: Normal. EKG shows sinus rhythm. She will be on telemetry while we load her with Betapace 80 mg twice a day a nd stop the Lopressor. NICKY/FIONA Voice ID: [id number]
[2018-08-25] MEDS: LEVOTHYROXINE SOD 0.05 MG TABLET PO SCH (05:32)
[2018-08-25] MEDS: APIXABAN 2.5 MG TABLET PO SCH ×2 (08:36→21:06)
[2018-08-25] MEDS: NIFEDIPINE XL 60 MG TABLET PO SCH (08:36)
[2018-08-25] MEDS: glyBURIDE 2.5 MG TAB PO SCH (08:37)
[2018-08-25] MEDS: SOTALOL HCL 80 MG TAB PO SCH ×2 (08:37→21:06)
[2018-08-25 09:14] VITALS: O2SAT 95
[2018-08-25] MEDS: LOPERAMIDE HCL 2 MG CAPSULE PO PRN ×2 (17:57→22:00)
[2018-08-25] MEDS: ROSUVASTATIN 10 MG TAB PO SCH (21:06)
[2018-08-26] MEDS: LEVOTHYROXINE SOD 0.05 MG TABLET PO SCH (05:58)
[2018-08-26] MEDS: glyBURIDE 2.5 MG TAB PO SCH (09:09)
[2018-08-26] MEDS: SOTALOL HCL 80 MG TAB PO SCH (09:14)
[2018-08-26] MEDS: NIFEDIPINE XL 60 MG TABLET PO SCH (09:15)
[2018-08-26] MEDS: APIXABAN 2.5 MG TABLET PO SCH (09:15)
[2018-08-26 09:16] VITALS: BP 152/60
[2018-08-26 10:21] VITALS: TEMP 98.8
--- NOTE | 2018-08-26 14:56 | PN ---
She has diarrhea, but no different from before and I think it is due to lactose intolerance. She dri nks a large glass of chocolate milk every morning. She had more than 100,000 colony-forming units pe r cc of urine. We know it is a gram-negative ruchi. We do not know which organism or what it is sensi tive to yet, so at the time of discharge, we would not give her any antibiotic. We will look at the report. When the organism ID and sensitivities are available, give her an appropriate antibiotic if indicated then as an outpatient. DENZEL Voice ID: [id number] Report ID: [id number]
--- NOTE | 2018-08-27 05:49 | DS ---
Date of Discharge: 08/26/2018 Discharge Diagnoses: 1.Paroxysmal atrial fibrillation, improved. The patient was loaded with Betapace. 2.Hypertension, moderate, to be followed as an outpatient. 3.Diarrhea, believed to be due to lactose intolerance. The patient has a large glass of chocolate m ilk every morning and has diarrhea several hours later usually. Hospital Course: The patient had evidence of paroxysmal atrial fibrillation, and that was the likely cause of syncope. We placed her in the hospital to see if Betapace would be tolerated. It seemed t o be her diarrhea was not significantly different from what it was before she came to the hospital. We do not believe that Betapace is causing her diarrhea. She will be discharged home, taking Eliquis 2.5 b.i.d., Betapace 80 b.i.d., and have followup with me in the office in 2 weeks, and she will try to follow a lactose-free diet for several days to see if that helps her diarrhea. NICKY/FIONA Voice ID: [id number] Report ID: [id number]
== END 2018-08-26 12:01 | disposition home or self-care (01) | DRG 310 ==
LOC: 2ND 09:44
PROVIDERS: ADMIT Internal Medicine; ATTEND Internal Medicine
DX: I48.0 Paroxysmal atrial fibrillation (principal); I10 Essential (primary) hypertension; R19.7 Diarrhea, unspecified; E73.9 Lactose intolerance, unspecified
CPT/HCPCS: 36415; 80048; 81003; 81015; 84443; 85025; 87077; 87086; 87088; 87186; 93005; J0360

== ENCOUNTER 2019-05-10 13:05 | Emergency (ER) | payer OTHER ==
--- NOTE | 2019-05-10 14:26 | RAD REPORT ---
EXAM DESCRIPTION: RAD - Lumbar Spine 3 Views - 05/10/2019 2:09 pm CLINICAL HISTORY: pain Radiculopathy COMPARISON: Lumbar Spine 3 Views dated 11/25/2016; LUMBAR SPINE 3 VIEWS dated 01/06/2015; LUMBAR SPINE 3 VIEWS dated 10/14/2013 FINDINGS: Multilevel degenerative changes are present throughout the lumbar spine. Mild anterior wed ge compression fracture affects L4, with loss of vertebral body height estimated at 10%. Age of this fracture is uncertain but it is new since 2017. Heavy vascular atherosclerotic changes. Vacuum disc degeneration is present at L1-2 with mild retrolisthesis at L1-2, L2-3. Mild anterolisthe sis at L5-S1. IMPRESSION: Mild L4 anterior compression fracture as detailed.
--- NOTE | 2019-05-10 14:27 | RAD REPORT ---
EXAM DESCRIPTION: RAD - Pelvis - 05/10/2019 2:09 pm CLINICAL HISTORY: pain COMPARISON: PELVIS dated 01/07/2013 FINDINGS: Mild osteopenia is seen. No acute fracture or dislocation evident. Vascular calcification.
--- NOTE | 2019-05-10 14:28 | RAD REPORT ---
EXAM DESCRIPTION: RAD - Sacrum And Coccyx - 05/10/2019 2:09 pm CLINICAL HISTORY: pain Fall, pain and radiculopathy. COMPARISON: Lumbar Spine 3 Views dated 05/10/2019; Lumbar Spine 3 Views dated 11/25/2016; LUMBAR SPINE 3 VIEWS dated 01/06/2015; LUMBAR SPINE 3 VIEWS dated 10/14/2013 FINDINGS: Mild anterior wedge compression fracture affects the L4 vertebral body. Estimated vertebra l body height loss is 10%. No sacrococcygeal fracture seen.
--- NOTE | 2019-05-10 15:14 | ER ---
Nurse's Notes [facility] Name: Josselyn Pereira Age: 88 yrs Sex: Female : 1930 Arrival Date: 05/10/2019 Time: 13:00 Bed 25 Private MD: Diagnosis: Fall from seated position;Fracture of fourth lumbar vertebra Presentation: 05/10 12:30 Presenting complaint: EMS states: pt was sitting in seat in bathtub and slipped off iw seat, fell to buttocks. Transition of care: patient was not received from another setting of care. Onset of symptoms was May 10, 2019. Risk Assessment: Do you want to hurt yourself or someone else? Patient reports no desire to harm self or others. Initial Sepsis Screen: Does the patient meet any 2 criteria? No. Patient's initial sepsis screen is negative. Does the patient have a suspected source of infection? No. Patient's initial sepsis screen is negative. Care prior to arrival: None. 12:30 Method Of Arrival: EMS: [facility] iw 12:30 Acuity: SHAGGY 4 iw Historical: - Allergies: 13:34 amlodipine; iw 13:34 HYDRALAZINE; iw 13:34 Isosorbide Mononitrate; iw - PMHx: 13:34 CVA; Diabetes - NIDDM; Hyperlipidemia; Hypertension; Hypothyroidism; iw - PSHx: 13:34 Hysterectomy; breast surgery; tumor removal; iw - Family history:: not pertinent. - Ebola Screening: : No symptoms or risks identified at this time. - Hospitalizations: : No recent hospitalization is reported. Screenin:10 Abuse screen: Denies threats or abuse. Nutritional screening: No deficits noted. aa5 Tuberculosis screening: No symptoms or risk factors identified. Fall Risk None identified. Assessment: 13:10 General: Appears comfortable, Behavior is calm, cooperative. Pain: Complains of pain in aa5 buttocks Pain does not radiate. Pain currently is 4 out of 10 on a pain scale. Quality of pain is described as aching, Is continuous. Neuro: Level of Consciousness is awake, alert, obeys commands, Oriented to person, place, time, situation. Cardiovascular: Heart tones S1 S2 present Rhythm is regular. Respiratory: Airway is patent Respiratory effort is even, unlabored, Respiratory pattern is regular, symmetrical. GI: No signs and/or symptoms were reported involving the gastrointestinal system. : No signs and/or symptoms were reported regarding the genitourinary system. EENT: No signs and/or symptoms were reported regarding the EENT system. Derm: Skin is pink, warm \T\ dry. Musculoskeletal: Range of motion: intact in all extremities. 14:08 Reassessment: Awaiting x-ray results. . aa5 14:08 Reassessment: Patient is alert, oriented x 3, equal unlabored respirations, skin aa5 warm/dry/pink. 15:50 Reassessment: Patient is alert, oriented x 3, equal unlabored respirations, skin aa5 warm/dry/pink. Vital Signs: 13:10 BP 162 / 61; Pulse 64; Resp 16 S; Temp 98.2; Pulse Ox 98% on R/A; Pain 4/10; iw ED Course: 13:00 Patient arrived in ED. iw 13:00 Anand Joshua MD is Attending Physician. rn 13:10 Adrianne Nguyễn RN is Primary Nurse. aa5 13:10 Arm band placed on. aa5 13:10 Patient has correct armband on for positive identification. Bed in low position. Call aa5 light in reach. Side rails up X2. 13:10 No provider procedures requiring assistance completed. aa5 13:33 Triage completed. iw 15:50 Patient did not have IV access during this emergency room visit. aa5 Administered Medications: No medications were administered Outcome: 15:13 Discharge ordered by . rn 15:50 Discharged to home via wheelchair, with family. aa5 15:50 Condition: good 15:50 Discharge instructions given to patient, family, Instructed on discharge instructions, follow up and referral plans. Demonstrated understanding of instructions, follow-up care. 15:57 Patient left the ED. aa5 Signatures: Hilary Muller RN RN Anand Joshua MD MD rn Calderon, Audri, RN RN aa5 Corrections: (The following items were deleted from the chart) 19:11 13:41 Arm band placed on iw aa5
--- NOTE | 2019-05-10 15:15 | EDPHYS ---
Physician Documentation [facility] Name: Josselyn Pereira Age: 88 yrs Sex: Female : 1930 Arrival Date: 05/10/2019 Time: 13:00 Bed 25 Private MD: ED Physician Anand Joshua HPI: 05/10 13:02 This 88 yrs old Female presents to ER via Unassigned with complaints of fall. rn 13:02 Associated injuries: The patient sustained injury to the low back. Onset: The rn symptoms/episode began/occurred just prior to arrival. The patient has not experienced similar symptoms in the past. The patient has not recently seen a physician. Reports slipped in bath, used too much wash, was seated, slipped off seat, and landed on buttocks, no head injury or LOC, denies pain. Reports too slippery to try and get back up, found by assisted living worker. . Historical: - Allergies: 13:34 amlodipine; iw 13:34 HYDRALAZINE; iw 13:34 Isosorbide Mononitrate; iw - PMHx: 13:34 CVA; Diabetes - NIDDM; Hyperlipidemia; Hypertension; Hypothyroidism; iw - PSHx: 13:34 Hysterectomy; breast surgery; tumor removal; iw - Family history:: not pertinent. - Ebola Screening: : No symptoms or risks identified at this time. - Hospitalizations: : No recent hospitalization is reported. ROS: 13:02 Constitutional: Negative for fever, chills, and weight loss, Eyes: Negative for injury, rn pain, redness, and discharge, Neck: Negative for injury, pain, and swelling, Cardiovascular: Negative for chest pain, palpitations, and edema, Respiratory: Negative for shortness of breath, cough, wheezing, and pleuritic chest pain, Abdomen/GI: Negative for abdominal pain, nausea, vomiting, diarrhea, and constipation, Back: Negative for injury and pain, MS/Extremity: Negative for injury and deformity, Skin: Negative for injury, rash, and discoloration, Neuro: Negative for headache, weakness, numbness, tingling, and seizure. Exam: 13:02 Constitutional: This is a well developed, well nourished patient who is awake, alert, rn and in no acute distress. Legs crossed and flipping through tv channels. Head/Face: Normocephalic, atraumatic. Eyes: Pupils equal round and reactive to light, extra-ocular motions intact. Lids and lashes normal. Conjunctiva and sclera are non-icteric and not injected. Cornea within normal limits. Periorbital areas with no swelling, redness, or edema. ENT: No oral trauma Neck: Trachea midline, no thyromegaly or masses palpated, and no cervical lymphadenopathy. Supple, full range of motion without nuchal rigidity, or vertebral point tenderness. No Meningismus. Cardiovascular: Regular rate and rhythm. No pulse deficits. Respiratory: Lungs have equal breath sounds bilaterally, clear to auscultation. No increased work of breathing, no retractions or nasal flaring. Abdomen/GI: soft, non-tender Back: No spinal tenderness. No costovertebral tenderness. Full range of motion. MS/ Extremity: Pulses equal, no cyanosis. Neurovascular intact. Full, normal range of motion. Equal circumference. Neuro: Awake and alert, GCS 15, oriented to person, place, time, and situation. Cranial nerves II-XII grossly intact. Motor strength 5/5 in all extremities. Sensory grossly intact. Cerebellar exam normal. Vital Signs: 13:10 BP 162 / 61; Pulse 64; Resp 16 S; Temp 98.2; Pulse Ox 98% on R/A; Pain 4/10; iw MDM: 13:00 Patient medically screened. rn 15:12 Differential diagnosis: L spine fracture. Data reviewed: vital signs, nurses notes, rn radiologic studies, plain films, and as a result, I will discharge patient. Counseling: I had a detailed discussion with the patient and/or guardian regarding: the historical points, exam findings, and any diagnostic results supporting the discharge/admit diagnosis, radiology results, the need for outpatient follow up, to return to the emergency department if symptoms worsen or persist or if there are any questions or concerns that arise at home. Special discussion: I discussed with the patient/guardian in detail that at this point there is no indication for admission to the hospital. It is understood, however, that if the symptoms persist or worsen the patient needs to return immediately for re-evaluation. ED course: Patient pain free, unclear if new lumbar fracture, will dc home with pcp f/u. . 05/10 15:23 Order name: BRIANA; Complete Time: 15:27 EDMS 05/10 15:23 Order name: RAD; Complete Time: 15:27 EDMS 05/10 15:23 Order name: RAD; Complete Time: 15:27 EDMS Administered Medications: No medications were administered Disposition: 05/10/19 15:13 Discharged to Home. Impression: Fall from seated position, Fracture of fourth lumbar vertebra. - Condition is Stable. - Discharge Instructions: Spinal Compression Fracture. - Medication Reconciliation Form, Thank You Letter, Antibiotic Education, Prescription Opioid Use form. - Follow up: Private Physician; When: As needed; Reason: Recheck today's complaints, Re-evaluation by your physician. - Problem is new. - Symptoms have improved. Signatures: Hilary Muller RN RN iw Anand Joshua MD MD rn Calderon, Audri, RN RN aa5 Corrections: (The following items were deleted from the chart) 15:57 15:13 05/10/2019 15:13 Discharged to Home. Impression: Fall from seated position; aa5 Fracture of fourth lumbar vertebra. Condition is Stable. Forms are Medication Reconciliation Form, Thank You Letter, Antibiotic Education, Prescription Opioid Use. Follow up: Private Physician; When: As needed; Reason: Recheck today's complaints, Re-evaluation by your physician. Problem is new. Symptoms have improved. rn
[2019-05-10 18:47] VITALS: BP 162/61; TEMP 98.2; O2SAT 98
== END 2019-05-10 15:57 | disposition home or self-care (01) ==
LOC: ER 13:05
DX: S32.040A Wedge compression fracture of fourth lumbar vertebra, initial encounter for closed fracture (principal); W17.89XA Other fall from one level to another, initial encounter; Y93.E1 Activity, personal bathing and showering; Y92.9 Unspecified place or not applicable; Z88.8 Allergy status to other drugs, medicaments and biological substances
CPT/HCPCS: 72100; 72170; 72220; 99283